=== PATIENT | female | born 1975 | race Caucasian/White ===

== ENCOUNTER 2018-12-23 21:29 | Observation (INO) | payer SELFPAY ==
[2018-12-23] MEDS ORDERED: Ondansetron 4 MG/2 ML SDV IVPUSH ONE (21:32)
[2018-12-23] MEDS ORDERED: Morphine 2 MG/ML Syringe IVPUSH ONE (21:32)
[2018-12-23] MEDS ORDERED: Sodium Chloride 0.9% 1,000 ML IV ONE (21:32)
--- NOTE | 2018-12-23 21:37 | EDM.PDOC ---
ED HPI GENERAL MEDICAL PROBLEM - General Chief Complaint: General Stated Complaint: PT SPOKE TO NURSE Time Seen by Provider: 12/23/18 21:36 Source of Information: Reports: Patient - History of Present Illness INITIAL COMMENTS - FREE TEXT/NARRATIVE: HISTORY AND PHYSICAL: History of present illness: [Patient presents from [place] for evaluation She has had epigastric pain over the last week 5 out of 10 radiating to the back unable to keep food down over the last week with some intermittent nausea No current fever nausea vomiting chills sweats no chest pain shortness breath headache dizziness palpitation no bowel or urine symptoms She has noted generalized weakness over the last week Patient initially reluctant to initiate treatment however has agreed to go forward with transfusion and further workup at this time Review of systems: As per history of present illness and below otherwise all systems reviewed and negative. Past medical history: As per history of present illness and as reviewed below otherwise noncontributory. Surgical history: As per history of present illness and as reviewed below otherwise noncontributory. Social history: No reported history of drug or alcohol abuse. Family history: As per history of present illness and as reviewed below otherwise noncontributory. Physical exam: HEENT: Atraumatic, normocephalic, pupils reactive, negative for conjunctival pallor or scleral icterus, mucous membranes moist, throat clear, neck supple, nontender, trachea midline. Lungs: Clear to auscultation, breath sounds equal bilaterally, chest nontender. Heart: S1S2, regular, negative for clicks, rubs, or JVD. Abdomen: Soft, nondistended, tender in the right upper quadrant as well as epigastrium on deep palpation no guarding or rebound Negative for masses or hepatosplenomegaly. Negative for costovertebral tenderness. Pelvis: Stable nontender. Genitourinary: Deferred. Rectal: No mass scarred lesion external a internal exam no mass scarred lesion guaiac is negative Extremities: Atraumatic, negative for cords or calf pain. Neurovascular unremarkable. Neuro: Awake, alert, oriented. Cranial nerves II through XII unremarkable. Cerebellum unremarkable. Motor and sensory unremarkable throughout. Exam nonfocal. Diagnostics: [CBC CMP UA type and screen CG troponin guaiac CT abdomen pelvis with contrast EKG ] Therapeutics: [Normal saline Zofran Morphine] Proton X 2 units packed red blood cells Impression: [ anemia -hemoglobin 4.9 Epigastric pain Guaiac negative Lower extremity edema Definitive disposition and diagnosis as appropriate pending reevaluation and review of above. Upper Abdomen Pain Score (Numeric/FACES): 10 - Related Data Allergies Allergy/AdvReac Type Severity Reaction Status Date / Time Penicillins Allergy Anaphylactic Verified 12/23/18 21:41 Shock Home Meds: Home Meds Calcium Carbonate [Calcium] 500 mg PO DAILY 12/23/18 [History] Levonorgestrel-Ethin Estradiol [Lutera-28 Tablet] 1 each PO DAILY 12/23/18 [ History] Lisinopril 20 mg PO DAILY 12/23/18 [History] MV,Ca,Min/Iron Fum/FA/Vit K [Essential Woman Tablet] 1 each PO DAILY 12/23/18 [ History] Magnesium 250 mg PO DAILY 12/23/18 [History] Ondansetron [Zofran] 4 mg PO Q8H PRN 12/23/18 [History] Pantoprazole [ProTONIX] 40 mg PO DAILY 12/23/18 [History] Potassium 99 mg PO DAILY 12/23/18 [History] rOPINIRole [Requip] 1 mg PO BEDTIME 12/23/18 [History] traMADol [Ultram] 50 mg PO Q8H 12/23/18 [History] ED ROS GENERAL - Review of Systems Review Of Systems: See Below ED EXAM, GENERAL - Physical Exam Exam: See Below Course - Vital Signs Last Recorded V/S: Last Vital Signs Temp 97.2 F 12/24/18 00:50 Pulse 63 12/24/18 00:50 Resp 18 12/24/18 00:50 BP 132/57 L 12/24/18 00:50 Pulse Ox 97 12/24/18 00:50 - Orders/Labs/Meds Orders: Active Orders 24 hr Category Date Time Status EKG Documentation Completion [RC] STAT Care 12/23/18 22:34 Active Guaiac [OCCULT BLOOD DIAGNOSTIC] [OP] Stat Lab 12/23/18 22:23 Ordered RED BLOOD CELLS LP [BBK] Stat Lab 12/23/18 21:52 Results TYPE AND SCREEN [BBK] Stat Lab 12/23/18 21:52 Results Labs: Laboratory Tests 12/23/18 12/23/18 12/23/18 Range/Units 21:50 21:50 21:52 WBC 17.85 H (4.0-11.0) K/uL RBC 2.71 L (4.30-5.90) M/uL Hgb 4.9 L (12.0-16.0) g/dL Hct 18.3 L (36.0-46.0) % MCV 67.5 L (80.0-98.0) fL MCH 18.1 L (27.0-32.0) pg MCHC 26.8 L (31.0-37.0) g/dL RDW Std Deviation 46.8 (28.0-62.0) fl RDW Coeff of Don 19 H (11.0-15.0) % Plt Count 659 H (150-400) K/uL MPV 9.00 (7.40-12.00) fL Add Manual Diff YES Neutrophils % (Manual) 68 (48.0-80.0) % Band Neutrophils % 15 % Lymphocytes % (Manual) 14 L (16.0-40.0) % Monocytes % (Manual) 1 (0.0-15.0) % Basophils % (Manual) 1 (0.0-1.5) % Metamyelocytes % 1 % Absolute Seg Neuts 12.1 H (1.4-5.7) Band Neutrophils # 2.7 Lymphocytes # (Manual) 2.5 H (0.6-2.4) Monocytes # (Manual) 0.2 (0.0-0.8) Basophils # (Manual) 0.2 H (0.0-0.1) Absolute Metamyelocyte 0.2 Sodium (136-145) mmol/L Potassium (3.5-5.1) mmol/L Chloride (98-107) mmol/L Carbon Dioxide (21.0-32.0) mmol/L BUN (7.0-18.0) mg/dL Creatinine (0.6-1.0) mg/dL Est Cr Clr Drug Dosing mL/min Estimated GFR (MDRD) ml/min Glucose (74-106) mg/dL Calcium (8.5-10.1) mg/dL Total Bilirubin (0.2-1.0) mg/dL AST (15-37) IU/L ALT (14-63) IU/L Alkaline Phosphatase (46-116) U/L Troponin I (0.000-0.056) ng/mL Total Protein (6.4-8.2) g/dL Albumin (3.4-5.0) g/dL Globulin (2.6-4.0) g/dL Albumin/Globulin Ratio (0.9-1.6) Lipase (73-393) U/L Urine Color YELLOW Urine Appearance CLEAR Urine pH 5.5 (5.0-8.0) Ur Specific [place] 1.010 (1.001-1.035) Urine Protein NEGATIVE (NEGATIVE) mg/dL Urine Glucose (UA) NEGATIVE (NEGATIVE) mg/dL Urine Ketones NEGATIVE (NEGATIVE) mg/dL Urine Occult Blood NEGATIVE (NEGATIVE) Urine Nitrite NEGATIVE (NEGATIVE) Urine Bilirubin NEGATIVE (NEGATIVE) Urine Urobilinogen 0.2 (<2.0) EU/dL Ur Leukocyte Esterase NEGATIVE (NEGATIVE) Urine HCG, Qual NEGATIVE (NEGATIVE) Blood Type Antibody Screen Crossmatch 12/23/18 12/23/18 Range/Units 21:52 21:52 WBC (4.0-11.0) K/uL RBC (4.30-5.90) M/uL Hgb (12.0-16.0) g/dL Hct (36.0-46.0) % MCV (80.0-98.0) fL MCH (27.0-32.0) pg MCHC (31.0-37.0) g/dL RDW Std Deviation (28.0-62.0) fl RDW Coeff of Don (11.0-15.0) % Plt Count (150-400) K/uL MPV (7.40-12.00) fL Add Manual Diff Neutrophils % (Manual) (48.0-80.0) % Band Neutrophils % % Lymphocytes % (Manual) (16.0-40.0) % Monocytes % (Manual) (0.0-15.0) % Basophils % (Manual) (0.0-1.5) % Metamyelocytes % % Absolute Seg Neuts (1.4-5.7) Band Neutrophils # Lymphocytes # (Manual) (0.6-2.4) Monocytes # (Manual) (0.0-0.8) Basophils # (Manual) (0.0-0.1) Absolute Metamyelocyte Sodium 139 (136-145) mmol/L Potassium 4.2 (3.5-5.1) mmol/L Chloride 104 (98-107) mmol/L Carbon Dioxide 23.0 (21.0-32.0) mmol/L BUN 13 (7.0-18.0) mg/dL Creatinine 1.0 (0.6-1.0) mg/dL Est Cr Clr Drug Dosing 66.51 mL/min Estimated GFR (MDRD) 60.0 ml/min Glucose 98 (74-106) mg/dL Calcium 8.1 L (8.5-10.1) mg/dL Total Bilirubin 0.3 (0.2-1.0) mg/dL AST 18 (15-37) IU/L ALT 14 (14-63) IU/L Alkaline Phosphatase 120 H (46-116) U/L Troponin I < 0.050 (0.000-0.056) ng/mL Total Protein 5.9 L (6.4-8.2) g/dL Albumin 2.2 L (3.4-5.0) g/dL Globulin 3.7 (2.6-4.0) g/dL Albumin/Globulin Ratio 0.6 L (0.9-1.6) Lipase 31 L (73-393) U/L Urine Color Urine Appearance Urine pH (5.0-8.0) Ur Specific [place] (1.001-1.035) Urine Protein (NEGATIVE) mg/dL Urine Glucose (UA) (NEGATIVE) mg/dL Urine Ketones (NEGATIVE) mg/dL Urine Occult Blood (NEGATIVE) Urine Nitrite (NEGATIVE) Urine Bilirubin (NEGATIVE) Urine Urobilinogen (<2.0) EU/dL Ur Leukocyte Esterase (NEGATIVE) Urine HCG, Qual (NEGATIVE) Blood Type O POSITIVE Antibody Screen NEGATIVE Crossmatch See Detail Meds: Medications Discontinued Medications Generic Name Dose Route Start Last Admin Trade Name Freq PRN Reason Stop Dose Admin Furosemide 20 mg 12/24/18 01:15 12/24/18 01:23 Lasix IVPUSH 12/24/18 01:16 20 mg NOW ONE Administration Sodium Chloride 1,000 mls @ 999 mls/hr 12/23/18 21:32 12/23/18 22:00 Normal Saline IV 12/23/18 22:32 999 mls/hr STAT ONE Administration Sodium Chloride Confirm 12/23/18 21:55 12/23/18 22:00 Normal Saline Administered 05/16/19 21:56 20 mls/hr Dose Administration 20 mls @ as directed .ROUTE .STK-MED ONE Iopamidol 100 ml 12/23/18 22:49 12/23/18 22:49 Isovue Multipack-370 (76%) IVPUSH 12/23/18 22:50 100 ml ONETIME STA Administration Morphine Sulfate 2 mg 12/23/18 21:32 12/23/18 22:00 Morphine IVPUSH 12/23/18 21:33 2 mg ONETIME ONE Administration Morphine Sulfate 4 mg 12/23/18 23:50 12/24/18 00:00 Morphine IVPUSH 12/23/18 23:51 4 mg ONETIME ONE Administration Ondansetron HCl 8 mg 12/23/18 21:32 12/23/18 22:02 Zofran IVPUSH 12/23/18 21:33 8 mg ONETIME ONE Administration Pantoprazole Sodium 80 mg 12/23/18 21:42 12/23/18 22:01 Protonix Iv IVPUSH 12/23/18 21:43 80 mg .BOLUS ONE Administration Departure - Departure Time of Disposition: 01:25 Disposition: Refer to Observation Condition: Poor Clinical Impression: Anemia, Epigastric pain - Discharge Information Referrals: PCP,None [Primary Care Provider] - Forms: ED Department Discharge - My Orders Last 24 Hours: My Active Orders 12/23/18 21:52 RED BLOOD CELLS LP [BBK] Stat TYPE AND SCREEN [BBK] Stat 12/23/18 22:23 Guaiac [OCCULT BLOOD DIAGNOSTIC] [OP] Stat 12/23/18 22:34 EKG Documentation Completion [RC] STAT - Assessment/Plan Last 24 Hours: My Active Orders 12/23/18 21:52 RED BLOOD CELLS LP [BBK] Stat TYPE AND SCREEN [BBK] Stat 12/23/18 22:23 Guaiac [OCCULT BLOOD DIAGNOSTIC] [OP] Stat 12/23/18 22:34 EKG Documentation Completion [RC] STAT
[2018-12-23] MEDS ORDERED: Pantoprazole 40 MG Vial IVPUSH ONE (21:42)
[2018-12-23] MEDS ORDERED: Sodium Chloride 0.9% 20 ML ONE (21:55)
[2018-12-23 22:27] LABS: CHLORIDE,CL 104 mmol/L (98-107); SODIUM,NA 139 mmol/L (136-145)
[2018-12-23] MEDS ORDERED: Iopamidol 755 MG/ML 500 ML Multipack Bottle IVPUSH STA (22:49)
--- NOTE | 2018-12-23 23:08 | CT ---
INDICATION: Abdominal pain. TECHNIQUE: CT abdomen and pelvis acquired with 100 cc Isovue 370 IV contrast. COMPARISON: None. FINDINGS: Lower chest: Unremarkable. Liver: Unremarkable. Normal in size and attenuation. No masses. Gallbladder and bile ducts: Gallbladder is moderately distended. No stones or inflammation. No biliary dilatation. Pancreas: Unremarkable. No mass or inflammation. Spleen: Unremarkable. Normal in size. No masses. Adrenal glands: Unremarkable. No nodules. Kidneys: Unremarkable. No masses, stones, or hydronephrosis. GI tract: Unremarkable. Normal in caliber. No sign of mass or inflammation. There is hyperdense material within the mildly distended appendix. No sign of appendiceal inflammation. Vasculature: Unremarkable. Mesenteric arteries are patent. Lymph nodes: No lymphadenopathy. Omentum/Peritoneum/Abdominal Wall: Unremarkable. No sign of mass or infiltration. No free air or significant free fluid. Pelvis: Unremarkable. Bones: Unremarkable for age. IMPRESSION: 1. Gallbladder is moderately distended without evidence of stone or inflammation. 2. Hyperdense material is present within a mildly distended appendix. However, there is no sign of appendiceal inflammation. 3. No other acute or specific finding to explain abdominal pain. Please note that all CT scans at this facility use dose modulation, iterative reconstruction, and/or weight-based dosing when appropriate to reduce radiation dose to as low as reasonably achievable. Dictated by George Rojas MD @ Dec 23 2018 10:58PM Signed by Dr. George Rojas @ Dec 23 2018 11:06PM
[2018-12-23] MEDS ORDERED: Morphine 4 MG/ML Syringe IVPUSH ONE (23:50)
--- NOTE | 2018-12-24 00:42 | US ---
INDICATION: Epigastric pain TECHNIQUE: Ultrasound abdomen limited. Sonographic images of the right upper quadrant were obtained using sebastian-scale and color Doppler images. COMPARISON: None FINDINGS: Liver: The liver parenchyma is normal in echotexture. Gallbladder: [id number] nonspecific distention of the gallbladder is present measuring 4.5 cm in diameter. No gallstones or significant sludge is identified. The gallbladder wall is normal in appearance. No pericholecystic fluid is present. No sonographic [place] sign is present. Common bile duct: 4 mm. No intrahepatic biliary ductal dilatation seen. Pancreas: The visualized portions of the pancreatic head and body are normal in appearance. Right Kidney: 9.8 cm. No hydronephrosis or ureterectasis is seen. Vascular: Proximal abdominal aorta and IVC are normal in caliber. The visualized portal vein is patent with normal anterograde flow. IMPRESSION: 1. [id number] nonspecific distention of the gallbladder is present measuring 4.5 cm in diameter. Dictated by Rodrigo Pierre MD @ 12/24/2018 12:41:04 AM Dictated by: Rodrigo Pierre MD @ 12/24/2018 00:41:06 (Electronically Signed)
[2018-12-24] MEDS ORDERED: Furosemide 40 MG/4 ML VIAL IVPUSH ONE (01:15)
[2018-12-24] MEDS: Sodium Chloride 0.9% 1,000 ML IV SCH ×3 (04:43→22:32)
--- NOTE | 2018-12-24 07:02 | PCM.HP ---
H&P History of Present Illness - General Date of Service: 12/24/18 Admit Problem/Dx: Admission Diagnosis/Problem Admission Diagnosis/Problem Anemia Source of Information: Patient History Limitations: Reports: No Limitations - History of Present Illness Initial Comments - Free Text/Narative: The patient is a 43-year-old lady who had presented to the emergency department yesterday with a complaint of severe epigastric pain which radiates around both sides of her lower rib cage. The pain has been described as sharp and stabbing. The patient also had severe nausea and vomiting and had been unable to keep food down. Patient's overall health problems started approximately one week ago. The patient also admits to heavy NSAID use with up to 12 ibuprofen a day for chronic pain relief due to her migraine headache history. The patient had not noticed any hematochezia, hematemesis or melena. The patient reports that she did have some dizziness or lightheadedness. And she has had no specific aggravating or relieving factors for the pain. The patient also relates a history of heavy menstrual cycles. Onset of Symptoms: Reports: Gradual Duration of Symptoms: Reports: Week(s): Location: Reports: Abdomen Quality: Reports: Ache, Stabbing, Throbbing Severity: Severe Improves with: Reports: None Worsens with: Reports: None Context: Reports: Other (Heavy NSAID use) Associated Symptoms: Reports: Headaches, Loss of Appetite, Nausea/Vomiting Upper Abdomen Pain Score (Numeric/FACES): 7 - Related Data Allergies/Adverse Reactions: Allergies Allergy/AdvReac Type Severity Reaction Status Date / Time Penicillins Allergy Anaphylactic Verified 12/23/18 21:41 Shock Home Medications: Home Meds Calcium Carbonate [Calcium] 500 mg PO DAILY 12/23/18 [History] Levonorgestrel-Ethin Estradiol [Lutera-28 Tablet] 1 each PO DAILY 12/23/18 [ History] Lisinopril 20 mg PO DAILY 12/23/18 [History] MV,Ca,Min/Iron Fum/FA/Vit K [Essential Woman Tablet] 1 each PO DAILY 12/23/18 [ History] Magnesium 250 mg PO DAILY 12/23/18 [History] Ondansetron [Zofran] 4 mg PO Q8H PRN 12/23/18 [History] Pantoprazole [ProTONIX] 40 mg PO DAILY 12/23/18 [History] Potassium 99 mg PO DAILY 12/23/18 [History] rOPINIRole [Requip] 1 mg PO BEDTIME 12/23/18 [History] traMADol [Ultram] 50 mg PO Q8H 12/23/18 [History] Past Medical History - Past Health History Medical/Surgical History: Denies Medical/Surgical History Cardiovascular History: Reports: Hypertension Respiratory History: Reports: Asthma Gastrointestinal History: Reports: None Genitourinary History: Reports: None [employer]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: Musculoskeletal History: Reports: None Neurological History: Reports: Concussion, Migraines Psychiatric History: Reports: None Endocrine/Metabolic History: Reports: None Hematologic History: Reports: None Immunologic History: Reports: None Oncologic (Cancer) History: Reports: None Dermatologic History: Reports: None - Infectious Disease History Infectious Disease History: Reports: None - Past Surgical History Head Surgeries/Procedures: Reports: None HEENT Surgical History: Reports: Oral Surgery Social & Family History - Family History Family Medical History: Noncontributory - Tobacco Use Smoking Status *Q: Current Every Day Smoker Years of Tobacco use: 30 Packs/Tins Daily: 0.5 Used Tobacco, but Quit: No Second Hand Smoke Exposure: No - Caffeine Use Caffeine Use: Reports: Coffee - Recreational Drug Use Recreational Drug Use: No H&P Review of Systems - Review of Systems: Review Of Systems: See Below General: Reports: Weakness HEENT: Reports: No Symptoms Pulmonary: Reports: No Symptoms Cardiovascular: Reports: No Symptoms Gastrointestinal: Reports: Abdominal Pain, Decreased Appetite, Nausea, Vomiting Genitourinary: Reports: No Symptoms Musculoskeletal: Reports: No Symptoms Skin: Reports: No Symptoms Psychiatric: Reports: No Symptoms Neurological: Reports: No Symptoms Hematologic/Lymphatic: Reports: No Symptoms Immunologic: Reports: No Symptoms Exam - Exam Exam: See Below - Vital Signs Vital Signs: Last Vital Signs Temp 36.3 C 12/24/18 05:10 Pulse 62 12/24/18 05:10 Resp 16 12/24/18 05:10 BP 163/73 H 12/24/18 05:10 Pulse Ox 98 12/24/18 05:10 Weight: 72.802 kg - Exam Quality Assessment: No: Supplemental Oxygen General: Alert (Appears older), Oriented, Cooperative HEENT: Conjunctiva Clear ([place]), EACs Clear, EOMI, Mucosa Moist & [place], PERRLA Neck: Supple, Trachea Midline Lungs: Clear to Auscultation, Normal Respiratory Effort Cardiovascular: Regular Rate, Regular Rhythm GI/Abdominal Exam: Normal Bowel Sounds, Soft, No Distention, Tender (Epigastrium ). No: Guarding, Rigid, Rebound Back Exam: Normal Inspection, Full Range of Motion Extremities: Normal Inspection, Normal Range of Motion, No Pedal Edema Skin: Warm, Dry, Intact Neurological: Cranial Nerves Intact Neuro Extensive - Mental Status: Alert, Oriented x3, Normal Mood/Affect Psychiatric: Alert, Normal Affect, Normal Mood - Patient Data Lab Results Last 24 hrs: Laboratory Results - last 24 hr 12/23/18 12/23/18 12/23/18 Range/Units 21:50 21:50 21:52 WBC 17.85 H (4.0-11.0) K/uL RBC 2.71 L (4.30-5.90) M/uL Hgb 4.9 L (12.0-16.0) g/dL Hct 18.3 L (36.0-46.0) % MCV 67.5 L (80.0-98.0) fL MCH 18.1 L (27.0-32.0) pg MCHC 26.8 L (31.0-37.0) g/dL RDW Std Deviation 46.8 (28.0-62.0) fl RDW Coeff of Don 19 H (11.0-15.0) % Plt Count 659 H (150-400) K/uL MPV 9.00 (7.40-12.00) fL Add Manual Diff YES Neutrophils % (Manual) 68 (48.0-80.0) % Band Neutrophils % 15 % Lymphocytes % (Manual) 14 L (16.0-40.0) % Monocytes % (Manual) 1 (0.0-15.0) % Basophils % (Manual) 1 (0.0-1.5) % Metamyelocytes % 1 % Absolute Seg Neuts 12.1 H (1.4-5.7) Band Neutrophils # 2.7 Lymphocytes # (Manual) 2.5 H (0.6-2.4) Monocytes # (Manual) 0.2 (0.0-0.8) Basophils # (Manual) 0.2 H (0.0-0.1) Absolute Metamyelocyte 0.2 Sodium (136-145) mmol/L Potassium (3.5-5.1) mmol/L Chloride (98-107) mmol/L Carbon Dioxide (21.0-32.0) mmol/L BUN (7.0-18.0) mg/dL Creatinine (0.6-1.0) mg/dL Est Cr Clr Drug Dosing mL/min Estimated GFR (MDRD) ml/min Glucose (74-106) mg/dL Calcium (8.5-10.1) mg/dL Total Bilirubin (0.2-1.0) mg/dL AST (15-37) IU/L ALT (14-63) IU/L Alkaline Phosphatase (46-116) U/L Troponin I (0.000-0.056) ng/mL Total Protein (6.4-8.2) g/dL Albumin (3.4-5.0) g/dL Globulin (2.6-4.0) g/dL Albumin/Globulin Ratio (0.9-1.6) Lipase (73-393) U/L Urine Color YELLOW Urine Appearance CLEAR Urine pH 5.5 (5.0-8.0) Ur Specific [place] 1.010 (1.001-1.035) Urine Protein NEGATIVE (NEGATIVE) mg/dL Urine Glucose (UA) NEGATIVE (NEGATIVE) mg/dL Urine Ketones NEGATIVE (NEGATIVE) mg/dL Urine Occult Blood NEGATIVE (NEGATIVE) Urine Nitrite NEGATIVE (NEGATIVE) Urine Bilirubin NEGATIVE (NEGATIVE) Urine Urobilinogen 0.2 (<2.0) EU/dL Ur Leukocyte Esterase NEGATIVE (NEGATIVE) Urine HCG, Qual NEGATIVE (NEGATIVE) Blood Type Antibody Screen Crossmatch 12/23/18 12/23/18 Range/Units 21:52 21:52 WBC (4.0-11.0) K/uL RBC (4.30-5.90) M/uL Hgb (12.0-16.0) g/dL Hct (36.0-46.0) % MCV (80.0-98.0) fL MCH (27.0-32.0) pg MCHC (31.0-37.0) g/dL RDW Std Deviation (28.0-62.0) fl RDW Coeff of Don (11.0-15.0) % Plt Count (150-400) K/uL MPV (7.40-12.00) fL Add Manual Diff Neutrophils % (Manual) (48.0-80.0) % Band Neutrophils % % Lymphocytes % (Manual) (16.0-40.0) % Monocytes % (Manual) (0.0-15.0) % Basophils % (Manual) (0.0-1.5) % Metamyelocytes % % Absolute Seg Neuts (1.4-5.7) Band Neutrophils # Lymphocytes # (Manual) (0.6-2.4) Monocytes # (Manual) (0.0-0.8) Basophils # (Manual) (0.0-0.1) Absolute Metamyelocyte Sodium 139 (136-145) mmol/L Potassium 4.2 (3.5-5.1) mmol/L Chloride 104 (98-107) mmol/L Carbon Dioxide 23.0 (21.0-32.0) mmol/L BUN 13 (7.0-18.0) mg/dL Creatinine 1.0 (0.6-1.0) mg/dL Est Cr Clr Drug Dosing 66.51 mL/min Estimated GFR (MDRD) 60.0 ml/min Glucose 98 (74-106) mg/dL Calcium 8.1 L (8.5-10.1) mg/dL Total Bilirubin 0.3 (0.2-1.0) mg/dL AST 18 (15-37) IU/L ALT 14 (14-63) IU/L Alkaline Phosphatase 120 H (46-116) U/L Troponin I < 0.050 (0.000-0.056) ng/mL Total Protein 5.9 L (6.4-8.2) g/dL Albumin 2.2 L (3.4-5.0) g/dL Globulin 3.7 (2.6-4.0) g/dL Albumin/Globulin Ratio 0.6 L (0.9-1.6) Lipase 31 L (73-393) U/L Urine Color Urine Appearance Urine pH (5.0-8.0) Ur Specific [place] (1.001-1.035) Urine Protein (NEGATIVE) mg/dL Urine Glucose (UA) (NEGATIVE) mg/dL Urine Ketones (NEGATIVE) mg/dL Urine Occult Blood (NEGATIVE) Urine Nitrite (NEGATIVE) Urine Bilirubin (NEGATIVE) Urine Urobilinogen (<2.0) EU/dL Ur Leukocyte Esterase (NEGATIVE) Urine HCG, Qual (NEGATIVE) Blood Type O POSITIVE Antibody Screen NEGATIVE Crossmatch See Detail Result Diagrams: 12/24/18 07:29 12/23/18 21:52 - Problem List (1) Epigastric pain SNOMED Code(s): 62283555 ICD Code: R10.13 - EPIGASTRIC PAIN Status: Acute Priority: High Current Visit: Yes (2) Anemia SNOMED Code(s): 052600258 ICD Code: D64.9 - ANEMIA, UNSPECIFIED Status: Chronic Priority: High Current Visit: Yes Qualifiers: Anemia type: iron deficiency Iron deficiency anemia type: chronic blood loss Qualified Code(s): D50.0 - Iron deficiency anemia secondary to blood loss (chronic) (3) Chronic migraine SNOMED Code(s): 063924908 ICD Code: G43.709 - CHRONIC MIGRAINE W/O AURA, NOT INTRACTABLE, W/O STAT MIGR Status: Chronic Priority: High Current Visit: Yes (4) Hypertension SNOMED Code(s): 02923503 ICD Code: I10 - ESSENTIAL (PRIMARY) HYPERTENSION Status: Chronic Priority : High Current Visit: Yes Qualifiers: Hypertension type: essential hypertension Qualified Code(s): I10 - Essential (primary) hypertension Problem List Initiated/Reviewed/Updated: Yes Orders Last 24hrs: Active Orders 24 hr Category Date Time Status Patient Status [ADT] Routine ADT 12/24/18 01:53 Active Verify Patient Consent Obtain [RC] ASDIRECTED Care 12/24/18 01:59 Active Guaiac [OCCULT BLOOD DIAGNOSTIC] [OP] Stat Lab 12/23/18 22:23 Ordered HEMOGLOBIN/HEMATOCRIT,HH [HEME] Routine Lab 12/24/18 05:10 Ordered RED BLOOD CELLS LP [BBK] Stat Lab 12/23/18 21:52 Results TYPE AND SCREEN [BBK] Stat Lab 12/23/18 21:52 Results Morphine Med 12/24/18 02:30 Active 2 mg IVPUSH Q4H PRN Sodium Chloride 0.9% [Normal Saline] 1,000 ml Med 12/24/18 02:45 Active IV ASDIRECTED Transfuse Red Blood Cells [COMM] Stat Oth 12/24/18 01:59 Ordered Medication Orders Sodium Chloride (Normal Saline) 1,000 mls @ 125 mls/hr IV ASDIRECTED [facility] Last Admin: 12/24/18 04:43 Dose: 125 mls/hr Morphine Sulfate (Morphine) 2 mg IVPUSH Q4H PRN PRN Reason: Pain Assessment/Plan Comment:: The patient is a 43-year-old lady who had presented to the emergency department with severe epigastric pain. It was noted that her hemoglobin is 4.9 g/dL. The patient had been transfused with 2 units of packed red blood cells. Her hemoglobin had responded appropriately. Subjectively the patient feels better today. I've ordered a consult with surgeon as the patient does have a history of heavy NSAID use and this likely can have contributed to ulceration with subsequent bleeding. The patient for now is nothing by mouth. I've ordered repeat laboratory testings for the morning. She is on IV and normal saline at 125 mL per hour. Because of the possibility of hemorrhage the patient is on SCDs for DVT prophylaxis. The patient should be appropriate for discharge in 1- 2 days. She also be kept on her home medications for her hypertension and these will be be adjusted as necessary.
[2018-12-24] MEDS ORDERED: Ondansetron 4 MG Tab PO PRN (07:08)
[2018-12-24] MEDS ORDERED: Morphine 2 MG/ML Syringe IVPUSH PRN (07:09)
[2018-12-24] MEDS ORDERED: Sodium Chloride 0.9% 1,000 ML IV SCH (07:15)
[2018-12-24] MEDS: traMADol 50 MG Tab PO SCH ×3 (07:26→22:30)
[2018-12-24] MEDS: Pantoprazole 40 MG Tab.CR PO SCH (08:36)
[2018-12-24] MEDS: Lisinopril 10 MG Tab PO SCH (08:36)
[2018-12-24] MEDS ORDERED: POTASSIUM 99 MG PO SCH (09:00)
[2018-12-24] MEDS ORDERED: LUTERA PO SCH (09:00)
[2018-12-24] MEDS ORDERED: MAGNESIUM 250 MG PO SCH (09:00)
[2018-12-24] MEDS: Morphine 2 MG/ML Syringe IVPUSH PRN ×5 (09:57→23:54)
[2018-12-24] MEDS ORDERED: Levofloxacin/Dextrose 5%-Water 500 MG in Premix Bag 1 BAG IV SCH (13:00)
[2018-12-24 14:23] LABS: CHLORIDE,CL 107 mmol/L (98-107); SODIUM,NA 142 mmol/L (136-145)
--- NOTE | 2018-12-24 16:14 | PCM.CONS ---
H&P History of Present Illness - General Date of Service: 12/24/18 Admit Problem/Dx: Admission Diagnosis/Problem Admission Diagnosis/Problem Anemia Source of Information: Patient History Limitations: Reports: No Limitations - History of Present Illness Initial Comments - Free Text/Narative: Patient is a 43-year-old female who presented to the ER yesterday with 2 days of upper abdominal pain. It was made worse with eating solid food. She denies dysphasia. She denies heartburn. She was able to eat liquids with no issues. It radiated around her sides bilaterally. She denied any radiation to her lower abdomen. She denied any changes in her bowel habits. She is still passing gas and her last bowel movement was yesterday and it appeared normal. She does have very heavy episodes of menstruation. She had stable vital signs on presentation. A physical exam was performed by the ER physician. Per report she had a negative FOBT. Her hemoglobin on admission was 4.9 and her white blood cell count was 17,000. A CT scan of the abdomen pelvis showed a mild to moderately distended gallbladder as well as fecaliths within an otherwise normal -appearing appendix. She had a follow-up ultrasound that again showed a mild to moderately distended gallbladder with no evidence of cholecystitis or cholelithiasis. She was kept nothing by mouth given IV fluids and watched overnight. She was given 2 units of blood which brought her hemoglobin up to 7.5. This afternoon she developed a low-grade fever. She complains of being hungry but continues to have upper abdominal pain. I was asked to see the patient. Upon learning that I was a general surgeon the patient became very anxious and stated that she wanted to leave the hospital and wanted no procedures done at all. I was able to visit with her, calm her down, and obtain the above history. Upper Abdomen Pain Score (Numeric/FACES): 7 - Related Data Allergies/Adverse Reactions: Allergies Allergy/AdvReac Type Severity Reaction Status Date / Time Penicillins Allergy Anaphylactic Verified 12/23/18 21:41 Shock Home Medications: Home Meds Calcium Carbonate [Calcium] 500 mg PO DAILY 12/23/18 [History] Levonorgestrel-Ethin Estradiol [Lutera-28 Tablet] 1 each PO DAILY 12/23/18 [ History] Lisinopril 20 mg PO DAILY 12/23/18 [History] MV,Ca,Min/Iron Fum/FA/Vit K [Essential Woman Tablet] 1 each PO DAILY 12/23/18 [ History] Magnesium 250 mg PO DAILY 12/23/18 [History] Ondansetron [Zofran] 4 mg PO Q8H PRN 12/23/18 [History] Pantoprazole [ProTONIX] 40 mg PO DAILY 12/23/18 [History] Potassium 99 mg PO DAILY 12/23/18 [History] rOPINIRole [Requip] 1 mg PO BEDTIME 12/23/18 [History] traMADol [Ultram] 50 mg PO Q8H 12/23/18 [History] Past Medical History - Past Health History Medical/Surgical History: Denies Medical/Surgical History Cardiovascular History: Reports: Hypertension Respiratory History: Reports: Asthma Gastrointestinal History: Reports: None Genitourinary History: Reports: None MEDICAL RECORDS COORDINATOR History: Reports: Musculoskeletal History: Reports: None Neurological History: Reports: Concussion, Migraines Psychiatric History: Reports: None Endocrine/Metabolic History: Reports: None Hematologic History: Reports: None Immunologic History: Reports: None Oncologic (Cancer) History: Reports: None Dermatologic History: Reports: None - Infectious Disease History Infectious Disease History: Reports: None - Past Surgical History Head Surgeries/Procedures: Reports: None HEENT Surgical History: Reports: Oral Surgery Social & Family History - Family History Family Medical History: Noncontributory - Tobacco Use Smoking Status *Q: Current Every Day Smoker Years of Tobacco use: 30 Packs/Tins Daily: 0.5 Used Tobacco, but Quit: No Second Hand Smoke Exposure: No - Caffeine Use Caffeine Use: Reports: Coffee - Recreational Drug Use Recreational Drug Use: No H&P Review of Systems - Review of Systems: Review Of Systems: See Below Exam - Exam Exam: See Below - Vital Signs Vital Signs: Last Vital Signs Temp 38.1 C 12/24/18 11:09 Pulse 64 12/24/18 11:09 Resp 18 12/24/18 11:09 BP 162/75 H 12/24/18 11:09 Pulse Ox 99 12/24/18 11:09 Weight: 72.802 kg - Exam General: Alert, Oriented, Mild Distress HEENT: Conjunctiva Clear, Mucosa Moist & Boring, Nares Patent, Other (Poor dentition) Neck: Supple, Trachea Midline Lungs: Clear to Auscultation, Normal Respiratory Effort Cardiovascular: Regular Rate, Regular Rhythm GI/Abdominal Exam: Soft, Non-Tender, No Distention, No Mass Rectal (Female) Exam: Deferred Back Exam: Normal Inspection, Full Range of Motion - Patient Data Lab Results Last 24 hrs: Laboratory Results - last 24 hr 12/23/18 12/23/18 12/23/18 Range/Units 21:50 21:50 21:52 WBC 17.85 H (4.0-11.0) K/uL RBC 2.71 L (4.30-5.90) M/uL Hgb 4.9 L (12.0-16.0) g/dL Hct 18.3 L (36.0-46.0) % MCV 67.5 L (80.0-98.0) fL MCH 18.1 L (27.0-32.0) pg MCHC 26.8 L (31.0-37.0) g/dL RDW Std Deviation 46.8 (28.0-62.0) fl RDW Coeff of Don 19 H (11.0-15.0) % Plt Count 659 H (150-400) K/uL MPV 9.00 (7.40-12.00) fL Neut % (Auto) (48.0-80.0) % Lymph % (Auto) (16.0-40.0) % Borden % (Auto) (0.0-15.0) % Eos % (Auto) (0.0-7.0) % Baso % (Auto) (0.0-1.5) % Neut # (Auto) (1.4-5.7) K/uL Lymph # (Auto) (0.6-2.4) K/uL Borden # (Auto) (0.0-0.8) K/uL Eos # (Auto) (0.0-0.7) K/uL Baso # (Auto) (0.0-0.1) K/uL Add Manual Diff YES Neutrophils % (Manual) 68 (48.0-80.0) % Band Neutrophils % 15 % Lymphocytes % (Manual) 14 L (16.0-40.0) % Monocytes % (Manual) 1 (0.0-15.0) % Basophils % (Manual) 1 (0.0-1.5) % Metamyelocytes % 1 % Nucleated RBC % /100WBC Absolute Seg Neuts 12.1 H (1.4-5.7) Band Neutrophils # 2.7 Lymphocytes # (Manual) 2.5 H (0.6-2.4) Monocytes # (Manual) 0.2 (0.0-0.8) Basophils # (Manual) 0.2 H (0.0-0.1) Absolute Metamyelocyte 0.2 Nucleated RBCs # K/uL Sodium (136-145) mmol/L Potassium (3.5-5.1) mmol/L Chloride (98-107) mmol/L Carbon Dioxide (21.0-32.0) mmol/L BUN (7.0-18.0) mg/dL Creatinine (0.6-1.0) mg/dL Est Cr Clr Drug Dosing mL/min Estimated GFR (MDRD) ml/min Glucose (74-106) mg/dL Calcium (8.5-10.1) mg/dL Total Bilirubin (0.2-1.0) mg/dL AST (15-37) IU/L ALT (14-63) IU/L Alkaline Phosphatase (46-116) U/L Troponin I (0.000-0.056) ng/mL Total Protein (6.4-8.2) g/dL Albumin (3.4-5.0) g/dL Globulin (2.6-4.0) g/dL Albumin/Globulin Ratio (0.9-1.6) Lipase (73-393) U/L Urine Color YELLOW Urine Appearance CLEAR Urine pH 5.5 (5.0-8.0) Ur Specific Pitcher 1.010 (1.001-1.035) Urine Protein NEGATIVE (NEGATIVE) mg/dL Urine Glucose (UA) NEGATIVE (NEGATIVE) mg/dL Urine Ketones NEGATIVE (NEGATIVE) mg/dL Urine Occult Blood NEGATIVE (NEGATIVE) Urine Nitrite NEGATIVE (NEGATIVE) Urine Bilirubin NEGATIVE (NEGATIVE) Urine Urobilinogen 0.2 (<2.0) EU/dL Ur Leukocyte Esterase NEGATIVE (NEGATIVE) Urine HCG, Qual NEGATIVE (NEGATIVE) H. pylori IgG Antibody (NEG) Blood Type Antibody Screen Crossmatch 12/23/18 12/23/18 12/24/18 Range/Units 21:52 21:52 07:29 WBC (4.0-11.0) K/uL RBC (4.30-5.90) M/uL Hgb 7.5 L (12.0-16.0) g/dL Hct 25.1 L (36.0-46.0) % MCV (80.0-98.0) fL MCH (27.0-32.0) pg MCHC (31.0-37.0) g/dL RDW Std Deviation (28.0-62.0) fl RDW Coeff of Don (11.0-15.0) % Plt Count (150-400) K/uL MPV (7.40-12.00) fL Neut % (Auto) (48.0-80.0) % Lymph % (Auto) (16.0-40.0) % Borden % (Auto) (0.0-15.0) % Eos % (Auto) (0.0-7.0) % Baso % (Auto) (0.0-1.5) % Neut # (Auto) (1.4-5.7) K/uL Lymph # (Auto) (0.6-2.4) K/uL Borden # (Auto) (0.0-0.8) K/uL Eos # (Auto) (0.0-0.7) K/uL Baso # (Auto) (0.0-0.1) K/uL Add Manual Diff Neutrophils % (Manual) (48.0-80.0) % Band Neutrophils % % Lymphocytes % (Manual) (16.0-40.0) % Monocytes % (Manual) (0.0-15.0) % Basophils % (Manual) (0.0-1.5) % Metamyelocytes % % Nucleated RBC % /100WBC Absolute Seg Neuts (1.4-5.7) Band Neutrophils # Lymphocytes # (Manual) (0.6-2.4) Monocytes # (Manual) (0.0-0.8) Basophils # (Manual) (0.0-0.1) Absolute Metamyelocyte Nucleated RBCs # K/uL Sodium 139 (136-145) mmol/L Potassium 4.2 (3.5-5.1) mmol/L Chloride 104 (98-107) mmol/L Carbon Dioxide 23.0 (21.0-32.0) mmol/L BUN 13 (7.0-18.0) mg/dL Creatinine 1.0 (0.6-1.0) mg/dL Est Cr Clr Drug Dosing 66.51 mL/min Estimated GFR (MDRD) 60.0 ml/min Glucose 98 (74-106) mg/dL Calcium 8.1 L (8.5-10.1) mg/dL Total Bilirubin 0.3 (0.2-1.0) mg/dL AST 18 (15-37) IU/L ALT 14 (14-63) IU/L Alkaline Phosphatase 120 H (46-116) U/L Troponin I < 0.050 (0.000-0.056) ng/mL Total Protein 5.9 L (6.4-8.2) g/dL Albumin 2.2 L (3.4-5.0) g/dL Globulin 3.7 (2.6-4.0) g/dL Albumin/Globulin Ratio 0.6 L (0.9-1.6) Lipase 31 L (73-393) U/L Urine Color Urine Appearance Urine pH (5.0-8.0) Ur Specific Pitcher (1.001-1.035) Urine Protein (NEGATIVE) mg/dL Urine Glucose (UA) (NEGATIVE) mg/dL Urine Ketones (NEGATIVE) mg/dL Urine Occult Blood (NEGATIVE) Urine Nitrite (NEGATIVE) Urine Bilirubin (NEGATIVE) Urine Urobilinogen (<2.0) EU/dL Ur Leukocyte Esterase (NEGATIVE) Urine HCG, Qual (NEGATIVE) H. pylori IgG Antibody (NEG) Blood Type O POSITIVE Antibody Screen NEGATIVE Crossmatch See Detail 12/24/18 12/24/18 12/24/18 Range/Units 12:44 13:35 13:35 WBC 14.07 H (4.0-11.0) K/uL RBC 3.62 L (4.30-5.90) M/uL Hgb 7.9 L (12.0-16.0) g/dL Hct 26.3 L (36.0-46.0) % MCV 72.7 L (80.0-98.0) fL MCH 21.8 L (27.0-32.0) pg MCHC 30.0 L (31.0-37.0) g/dL RDW Std Deviation 53.3 (28.0-62.0) fl RDW Coeff of Don 20 H (11.0-15.0) % Plt Count 522 H (150-400) K/uL MPV 9.30 (7.40-12.00) fL Neut % (Auto) 80.2 H (48.0-80.0) % Lymph % (Auto) 11.0 L (16.0-40.0) % Borden % (Auto) 7.8 (0.0-15.0) % Eos % (Auto) 0.8 (0.0-7.0) % Baso % (Auto) 0.2 (0.0-1.5) % Neut # (Auto) 11.3 H (1.4-5.7) K/uL Lymph # (Auto) 1.6 (0.6-2.4) K/uL Borden # (Auto) 1.1 H (0.0-0.8) K/uL Eos # (Auto) 0.1 (0.0-0.7) K/uL Baso # (Auto) 0.0 (0.0-0.1) K/uL Add Manual Diff Neutrophils % (Manual) (48.0-80.0) % Band Neutrophils % % Lymphocytes % (Manual) (16.0-40.0) % Monocytes % (Manual) (0.0-15.0) % Basophils % (Manual) (0.0-1.5) % Metamyelocytes % % Nucleated RBC % 0.4 /100WBC Absolute Seg Neuts (1.4-5.7) Band Neutrophils # Lymphocytes # (Manual) (0.6-2.4) Monocytes # (Manual) (0.0-0.8) Basophils # (Manual) (0.0-0.1) Absolute Metamyelocyte Nucleated RBCs # 0 K/uL Sodium 142 (136-145) mmol/L Potassium 4.2 (3.5-5.1) mmol/L Chloride 107 (98-107) mmol/L Carbon Dioxide 20.9 L (21.0-32.0) mmol/L BUN 10 (7.0-18.0) mg/dL Creatinine 0.9 (0.6-1.0) mg/dL Est Cr Clr Drug Dosing 73.90 mL/min Estimated GFR (MDRD) > 60.0 ml/min Glucose 80 (74-106) mg/dL Calcium 7.7 L (8.5-10.1) mg/dL Total Bilirubin 0.4 (0.2-1.0) mg/dL AST 19 (15-37) IU/L ALT 14 (14-63) IU/L Alkaline Phosphatase 117 H (46-116) U/L Troponin I (0.000-0.056) ng/mL Total Protein 5.2 L (6.4-8.2) g/dL Albumin 2.2 L (3.4-5.0) g/dL Globulin 3.0 (2.6-4.0) g/dL Albumin/Globulin Ratio 0.7 L (0.9-1.6) Lipase (73-393) U/L Urine Color Urine Appearance Urine pH (5.0-8.0) Ur Specific Pitcher (1.001-1.035) Urine Protein (NEGATIVE) mg/dL Urine Glucose (UA) (NEGATIVE) mg/dL Urine Ketones (NEGATIVE) mg/dL Urine Occult Blood (NEGATIVE) Urine Nitrite (NEGATIVE) Urine Bilirubin (NEGATIVE) Urine Urobilinogen (<2.0) EU/dL Ur Leukocyte Esterase (NEGATIVE) Urine HCG, Qual (NEGATIVE) H. pylori IgG Antibody NEGATIVE (NEG) Blood Type Antibody Screen Crossmatch Result Diagrams: 12/24/18 12:44 12/24/18 13:35 Consult PN Assessment/Plan (1) Epigastric pain SNOMED Code(s): 15588519 Code(s): R10.13 - EPIGASTRIC PAIN Priority: High Current Visit: Yes Problem List Initiated/Reviewed/Updated: Yes My Orders Last 24 Hours: My Active Orders 12/24/18 12:23 Blood Culture x2 Reflex Set [OM.PC] Stat 12/24/18 12:44 CULTURE BLOOD [BC] Stat 12/24/18 13:35 CULTURE BLOOD [BC] Stat Plan: I ordered repeat CBC, CMP and H. pylori antigen test. H. pylori antigen test is negative. Her white blood cell count has come down to 14,000. Her alkaline phosphatase is mildly elevated at 117. I reviewed her imaging with our radiologist. There appears to be some thickening and inflammation around the antrum the stomach which may indicate an ulcer. He felt her gallbladder distention did not appear that severe. She does have some appendicoliths in her appendix with no signs of inflammation. My feeling is that she may have a stomach ulcer which is causing her abdominal pain. Given her heavy menstruation this may be the source of her anemia. She refuses to let me do any procedures on her including a digital rectal exam. If she has a bowel movement I would send this for occult blood testing. The patient should be treated with PPI therapy and Carafate. She can start a clear liquid diet to see if she tolerates this. Dr. Sheffield and I discussed broad-spectrum antibiotics which she will begin today. I would keep the patient overnight for close observation. If in the morning her white blood cell count is down to normal she can be switched over to oral medications and possibly discharge home as long as her pain is under control she is otherwise stable.
[2018-12-24] MEDS ORDERED: rOPINIRole 1 MG Tab PO SCH (21:00)
[2018-12-24] MEDS ORDERED: Temazepam 15 MG Cap PO PRN (23:12)
[2018-12-25] MEDS: Morphine 2 MG/ML Syringe IVPUSH PRN ×2 (02:54→06:59)
[2018-12-25] MEDS: Sodium Chloride 0.9% 1,000 ML IV SCH (06:06)
[2018-12-25] MEDS: traMADol 50 MG Tab PO SCH (06:58)
[2018-12-25 07:14] LABS: CHLORIDE,CL 108 mmol/L (98-107); SODIUM,NA 142 mmol/L (136-145)
--- NOTE | 2018-12-25 08:42 | PCM.DCSUM1 ---
Discharge Summary - Hospital Course Diagnosis: Stroke: No - Discharge Data Discharge Date: 12/25/18 Discharge Disposition: Home, Self-Care 01 Condition: Fair - Discharge Diagnosis/Problem(s) (1) Epigastric pain SNOMED Code(s): 47027240 ICD Code: R10.13 - EPIGASTRIC PAIN Status: Resolved Priority: High (2) Anemia SNOMED Code(s): 627078429 ICD Code: D64.9 - ANEMIA, UNSPECIFIED Status: Chronic Priority: High Qualifiers: Anemia type: iron deficiency Iron deficiency anemia type: chronic blood loss Qualified Code(s): D50.0 - Iron deficiency anemia secondary to blood loss (chronic) (3) Chronic migraine SNOMED Code(s): 717518335 ICD Code: G43.709 - CHRONIC MIGRAINE W/O AURA, NOT INTRACTABLE, W/O STAT MIGR Status: Chronic Priority: High (4) Hypertension SNOMED Code(s): 46078828 ICD Code: I10 - ESSENTIAL (PRIMARY) HYPERTENSION Status: Chronic Priority : High Qualifiers: Hypertension type: essential hypertension Qualified Code(s): I10 - Essential (primary) hypertension - Patient Summary/Data Consults: Consultations 12/24/18 07:09 Consult to Physician [CONS] Routine Hospital Course: The patient is a 43-year-old lady who had presented to the emergency department yesterday with a complaint of severe epigastric pain which radiates around both sides of her lower rib cage. The pain has been described as sharp and stabbing. The patient also had severe nausea and vomiting and had been unable to keep food down. Patient's overall health problems started approximately one week ago. The patient also admits to heavy NSAID use with up to 12 ibuprofen a day for chronic pain relief due to her migraine headache history. The patient initially had a hemoglobin of 4.9 g/dL and the patient had been transfused with 2 units of packed red blood cells. The patient tolerated the procedure well. Her post transfusion hemoglobin was at 7.7 g/dL. The patient felt better. Her symptoms had resolved. The patient's H. pylori testing was negative. The patient also had been consulted with surgery with regards to possible gastric ulcers a result of heavy NSAID use. The patient had been counseled with regards to ibuprofen use. The patient was anxious for discharge and felt that she can safely be discharged today. The patient should follow up with general surgeon for possible endoscopy. The patient is also to follow-up with primary care physician. The patient also had been tolerating her diet as she is recommended continue with the diet as tolerated. She is also to have activity as tolerated. The patient is hemodynamically stable and she's been also recommended to take [id number] iron. She is discharged from acute hospitalization with recommendations listed above. - Patient Instructions Diet: Heart Healthy Diet Activity: As Tolerated - Discharge Plan *PRESCRIPTION DRUG MONITORING PROGRAM REVIEWED*: No *COPY OF PRESCRIPTION DRUG MONITORING REPORT IN PATIENT ELIEZER: No Prescriptions/Med Rec: Ciprofloxacin HCl [Cipro] 500 mg PO BID #10 tablet Hydrocodone/Acetaminophen [Hydrocodon-Acetaminophen 5-325] 1 each PO Q6H PRN # 20 tablet PRN Reason: Abdominal Pain Sucralfate [Carafate] 1 gm PO QIDACANDBED #40 cup Home Medications: Home Meds Calcium Carbonate [Calcium] 500 mg PO DAILY 12/23/18 [History] Levonorgestrel-Ethin Estradiol [Lutera-28 Tablet] 1 each PO DAILY 12/23/18 [ History] Lisinopril 20 mg PO DAILY 12/23/18 [History] MV,Ca,Min/Iron Fum/FA/Vit K [Multi For Her Tablet] 1 each PO DAILY 12/23/18 [ History] Magnesium 250 mg PO DAILY 12/23/18 [History] Ondansetron [Zofran] 4 mg PO Q8H PRN 12/23/18 [History] Pantoprazole [ProTONIX] 40 mg PO DAILY 12/23/18 [History] Potassium 99 mg PO DAILY 12/23/18 [History] rOPINIRole [Requip] 1 mg PO BEDTIME 12/23/18 [History] traMADol [Ultram] 50 mg PO Q8H 12/23/18 [History] Ciprofloxacin HCl [Cipro] 500 mg PO BID #10 tablet 12/25/18 [Rx] Hydrocodone/Acetaminophen [Hydrocodon-Acetaminophen 5-325] 1 each PO Q6H PRN # 20 tablet 12/25/18 [Rx] Sucralfate [Carafate] 1 gm PO QIDACANDBED #40 cup 12/25/18 [Rx] Temazepam [Restoril] 15 mg PO BEDTIME PRN cap 12/25/18 [Rx] Oxygen Therapy Mode: Room Air Patient Handouts: Acetaminophen; Hydrocodone tablets or capsules, Sucralfate tablets, Gastrointestinal Bleeding, [id number], Ciprofloxacin tablets Referrals: Mariann Wilcox MD [Physician] - (Please call on Thursday and schedule a follow up appointment.) - Discharge Summary/Plan Comment DC Time >30 min.: Yes - General Info Date of Service: 12/25/18 Admission Dx/Problem (Free Text: Admission Diagnosis/Problem Admission Diagnosis/Problem Anemia, epigastric abdominal pain, excessive NSAID use, chronic back pains and migraines Functional Status: Reports: Pain Controlled - Review of Systems General: Reports: No Symptoms HEENT: Reports: No Symptoms Pulmonary: Reports: No Symptoms Cardiovascular: Reports: No Symptoms Gastrointestinal: Reports: No Symptoms Genitourinary: Reports: No Symptoms Musculoskeletal: Reports: No Symptoms Skin: Reports: No Symptoms Neurological: Reports: No Symptoms Psychiatric: Reports: No Symptoms - Patient Data Vitals - Most Recent: Last Vital Signs Temp 36.5 C 12/25/18 07:36 Pulse 68 12/25/18 07:36 Resp 16 12/25/18 07:36 BP 159/100 H 12/25/18 07:36 Pulse Ox 100 12/25/18 07:36 Weight - Most Recent: 72.802 kg I&O - Last 24 hours: Intake & Output 12/24/18 12/25/18 12/25/18 22:59 06:59 14:59 Intake Total 1331 2338 Output Total 700 1200 Balance 631 1138 Lab Results - Last 24 hrs: Laboratory Results - last 24 hr 12/23/18 12/24/18 12/24/18 Range/Units 21:52 12:44 13:35 WBC 14.07 H (4.0-11.0) K/uL RBC 3.62 L (4.30-5.90) M/uL Hgb 7.9 L (12.0-16.0) g/dL Hct 26.3 L (36.0-46.0) % MCV 72.7 L (80.0-98.0) fL MCH 21.8 L (27.0-32.0) pg MCHC 30.0 L (31.0-37.0) g/dL RDW Std Deviation 53.3 (28.0-62.0) fl RDW Coeff of Don 20 H (11.0-15.0) % Plt Count 522 H (150-400) K/uL MPV 9.30 (7.40-12.00) fL Neut % (Auto) 80.2 H (48.0-80.0) % Lymph % (Auto) 11.0 L (16.0-40.0) % [place] % (Auto) 7.8 (0.0-15.0) % Eos % (Auto) 0.8 (0.0-7.0) % Baso % (Auto) 0.2 (0.0-1.5) % Neut # (Auto) 11.3 H (1.4-5.7) K/uL Lymph # (Auto) 1.6 (0.6-2.4) K/uL [place] # (Auto) 1.1 H (0.0-0.8) K/uL Eos # (Auto) 0.1 (0.0-0.7) K/uL Baso # (Auto) 0.0 (0.0-0.1) K/uL Add Manual Diff Neutrophils % (Manual) (48.0-80.0) % Band Neutrophils % % Lymphocytes % (Manual) (16.0-40.0) % Monocytes % (Manual) (0.0-15.0) % Eosinophils % (Manual) (0.0-7.0) % Nucleated RBC % 0.4 /100WBC Absolute Seg Neuts (1.4-5.7) Band Neutrophils # Lymphocytes # (Manual) (0.6-2.4) Monocytes # (Manual) (0.0-0.8) Eosinophils # (Manual) (0.0-0.7) Nucleated RBCs # 0 K/uL Sodium 142 (136-145) mmol/L Potassium 4.2 (3.5-5.1) mmol/L Chloride 107 (98-107) mmol/L Carbon Dioxide 20.9 L (21.0-32.0) mmol/L BUN 10 (7.0-18.0) mg/dL Creatinine 0.9 (0.6-1.0) mg/dL Est Cr Clr Drug Dosing 73.90 mL/min Estimated GFR (MDRD) > 60.0 ml/min Glucose 80 (74-106) mg/dL Calcium 7.7 L (8.5-10.1) mg/dL Total Bilirubin 0.4 (0.2-1.0) mg/dL AST 19 (15-37) IU/L ALT 14 (14-63) IU/L Alkaline Phosphatase 117 H (46-116) U/L Total Protein 5.2 L (6.4-8.2) g/dL Albumin 2.2 L (3.4-5.0) g/dL Globulin 3.0 (2.6-4.0) g/dL Albumin/Globulin Ratio 0.7 L (0.9-1.6) H. pylori IgG Antibody (NEG) Blood Type O POSITIVE Antibody Screen NEGATIVE Crossmatch See Detail 12/24/18 12/25/18 12/25/18 Range/Units 13:35 06:40 06:40 WBC 14.18 H (4.0-11.0) K/uL RBC 3.50 L (4.30-5.90) M/uL Hgb 7.7 L (12.0-16.0) g/dL Hct 26.0 L (36.0-46.0) % MCV 74.3 L (80.0-98.0) fL MCH 22.0 L (27.0-32.0) pg MCHC 29.6 L (31.0-37.0) g/dL RDW Std Deviation 55.5 (28.0-62.0) fl RDW Coeff of Don 21 H (11.0-15.0) % Plt Count 421 H (150-400) K/uL MPV 9.00 (7.40-12.00) fL Neut % (Auto) (48.0-80.0) % Lymph % (Auto) (16.0-40.0) % [place] % (Auto) (0.0-15.0) % Eos % (Auto) (0.0-7.0) % Baso % (Auto) (0.0-1.5) % Neut # (Auto) (1.4-5.7) K/uL Lymph # (Auto) (0.6-2.4) K/uL [place] # (Auto) (0.0-0.8) K/uL Eos # (Auto) (0.0-0.7) K/uL Baso # (Auto) (0.0-0.1) K/uL Add Manual Diff YES Neutrophils % (Manual) 80 (48.0-80.0) % Band Neutrophils % 5 % Lymphocytes % (Manual) 13 L (16.0-40.0) % Monocytes % (Manual) 1 (0.0-15.0) % Eosinophils % (Manual) 1 (0.0-7.0) % Nucleated RBC % 0.0 /100WBC Absolute Seg Neuts 11.3 H (1.4-5.7) Band Neutrophils # 0.7 Lymphocytes # (Manual) 1.8 (0.6-2.4) Monocytes # (Manual) 0.1 (0.0-0.8) Eosinophils # (Manual) 0.1 (0.0-0.7) Nucleated RBCs # 0 K/uL Sodium 142 (136-145) mmol/L Potassium 4.1 (3.5-5.1) mmol/L Chloride 108 H (98-107) mmol/L Carbon Dioxide 21.6 (21.0-32.0) mmol/L BUN 8 (7.0-18.0) mg/dL Creatinine 0.8 (0.6-1.0) mg/dL Est Cr Clr Drug Dosing 83.13 mL/min Estimated GFR (MDRD) > 60.0 ml/min Glucose 81 (74-106) mg/dL Calcium 7.9 L (8.5-10.1) mg/dL Total Bilirubin (0.2-1.0) mg/dL AST (15-37) IU/L ALT (14-63) IU/L Alkaline Phosphatase (46-116) U/L Total Protein (6.4-8.2) g/dL Albumin (3.4-5.0) g/dL Globulin (2.6-4.0) g/dL Albumin/Globulin Ratio (0.9-1.6) H. pylori IgG Antibody NEGATIVE (NEG) Blood Type Antibody Screen Crossmatch Med Orders - Current: Current Medications Sodium Chloride (Normal Saline) 1,000 mls @ 125 mls/hr IV ASDIRECTED JONATHAN Last Admin: 12/25/18 06:06 Dose: 125 mls/hr Sodium Chloride (Normal Saline) 1,000 mls @ 125 mls/hr IV ASDIRECTED JONATHAN Levofloxacin/Dextrose 500 mg/ (Premix) 100 mls @ 100 mls/hr IV Q24H [facility] Last Admin: 12/24/18 14:21 Dose: 100 mls/hr Lisinopril (Prinivil) 20 mg PO DAILY [facility] Last Admin: 12/24/18 08:36 Dose: 20 mg Magnesium Oxide (Magnesium Oxide) 400 mg PO DAILY [facility] Morphine Sulfate (Morphine) 2 mg IVPUSH Q2H PRN PRN Reason: Pain Last Admin: 12/25/18 06:59 Dose: 2 mg Ondansetron HCl (Zofran) 4 mg PO Q8H PRN PRN Reason: Nausea Last Admin: 12/24/18 23:17 Dose: 4 mg Pantoprazole Sodium (Protonix) 40 mg PO DAILY [facility] Last Admin: 12/24/18 08:36 Dose: 40 mg [Lutera-28 Tablet] 1 (Each) 1 each PO DAILY [facility] Last Admin: 12/24/18 08:45 Dose: Not Given Ropinirole HCl (Requip) 1 mg PO BEDTIME [facility] Last Admin: 12/24/18 21:09 Dose: 1 mg Temazepam (Restoril) 15 mg PO BEDTIME PRN PRN Reason: Sleep Last Admin: 12/24/18 23:17 Dose: 15 mg Tramadol HCl (Ultram) 50 mg PO Q8H [facility] Last Admin: 12/25/18 06:58 Dose: 50 mg Discontinued Medications Furosemide (Lasix) 20 mg IVPUSH NOW ONE Stop: 12/24/18 01:16 Last Admin: 12/24/18 01:23 Dose: 20 mg Sodium Chloride (Normal Saline) 1,000 mls @ 999 mls/hr IV STAT ONE Stop: 12/23/18 22:32 Last Admin: 12/23/18 22:00 Dose: 999 mls/hr Sodium Chloride (Normal Saline) Confirm Administered Dose 20 mls @ as directed .ROUTE .STK-MED ONE Stop: 12/23/18 21:56 Last Admin: 12/23/18 22:00 Dose: 20 mls/hr Iopamidol (Isovue Multipack-370 (76%)) 100 ml IVPUSH ONETIME STA Stop: 12/23/18 22:50 Last Admin: 12/23/18 22:49 Dose: 100 ml Morphine Sulfate (Morphine) 2 mg IVPUSH ONETIME ONE Stop: 12/23/18 21:33 Last Admin: 12/23/18 22:00 Dose: 2 mg Morphine Sulfate (Morphine) 4 mg IVPUSH ONETIME ONE Stop: 12/23/18 23:51 Last Admin: 12/24/18 00:00 Dose: 4 mg Morphine Sulfate (Morphine) 2 mg IVPUSH Q4H PRN PRN Reason: Pain Last Admin: 12/24/18 22:31 Dose: 2 mg Morphine Sulfate (Morphine) 2 mg IVPUSH Q2H PRN PRN Reason: Pain (severe 7-10) Stop: 12/25/18 07:11 Last Admin: 12/24/18 07:30 Dose: 2 mg Ondansetron HCl (Zofran) 8 mg IVPUSH ONETIME ONE Stop: 12/23/18 21:33 Last Admin: 12/23/18 22:02 Dose: 8 mg Pantoprazole Sodium (Protonix Iv) 80 mg IVPUSH .BOLUS ONE Stop: 12/23/18 21:43 Last Admin: 12/23/18 22:01 Dose: 80 mg [Magnesium] 250 Mg 1 each PO DAILY [facility] Last Admin: 12/24/18 08:45 Dose: Not Given [Potassium] 99 Mg 1 each PO DAILY [facility] Last Admin: 12/24/18 08:45 Dose: Not Given - Exam Quality Assessment: Denies: Supplemental Oxygen General: Reports: Alert, Oriented, Cooperative, No Acute Distress HEENT: Reports: Pupils Equal, Pupils Reactive, EOMI, Mucous Membr. Moist/Nogal Neck: Reports: Supple, Trachea Midline Lungs: Reports: Clear to Auscultation, Normal Respiratory Effort Cardiovascular: Reports: Regular Rate, Regular Rhythm GI/Abdominal Exam: Normal Bowel Sounds, Soft, Non-Tender, No Distention Back Exam: Reports: Normal Inspection, Full Range of Motion Extremities: Normal Inspection, Normal Range of Motion, No Pedal Edema Skin: Reports: Warm, Dry, Intact Neurological: Reports: No New Focal Deficit Psy/Mental Status: Reports: Alert, Normal Affect, Normal Mood *Q Meaningful Use (DIS) - VTE *Q VTE Pharmacological Contraindications *Q: Risk of Bleeding
[2018-12-25] MEDS ORDERED: Magnesium Oxide 400 MG Tab PO SCH (09:00)
[2018-12-25] MEDS: Lisinopril 10 MG Tab PO SCH (09:27)
[2018-12-25] MEDS: Pantoprazole 40 MG Tab.CR PO SCH (09:27)
== END 2018-12-25 10:10 | disposition home or self-care (01) ==
LOC: MW.ED 21:29 → MW.MS 12-24 01:41
PROVIDERS: ADMIT Internal Medicine; ATTEND Internal Medicine
DX: D50.0 Iron deficiency anemia secondary to blood loss (chronic) (principal); R10.13 Epigastric pain; G43.709 Chronic migraine without aura, not intractable, without status migrainosus; I10 Essential (primary) hypertension; M54.9 Dorsalgia, unspecified; G89.29 Other chronic pain; F17.210 Nicotine dependence, cigarettes, uncomplicated; Z87.09 Personal history of other diseases of the respiratory system; Z79.1 Long term (current) use of non-steroidal anti-inflammatories (NSAID); Z79.899 Other long term (current) drug therapy
CPT/HCPCS: 36415; 36430; 74177; 76705; 80048; 80053; 81003; 81025; 83690; 84484; 85014; 85018; 85025; 86677; 86850; 86900; 86901; 86920; 86921; 86922; 87040; 93005; 96361; 96374; 96375; 96376; 99285; A4217; A9270; C9113; G0378; J1940; J1956; J2270; J2405; J7040; P9016; Q9967; 99283

== ENCOUNTER 2018-12-25 19:58 | Emergency (ER) | payer SELFPAY ==
--- NOTE | 2018-12-25 20:13 | EDM.PDOC ---
ED HPI GENERAL MEDICAL PROBLEM - General Chief Complaint: Abdominal Pain Stated Complaint: STOMACH PAIN Time Seen by Provider: 12/25/18 20:09 - History of Present Illness INITIAL COMMENTS - FREE TEXT/NARRATIVE: HISTORY AND PHYSICAL: History of present illness: Patient's 43-year-old female who was discharged from hospital this a.m. after being treated for abdominal pain and was diagnosed with biliary colic she is also scheduled follow-up Gen. surgery for that and possible evaluation for endoscopy. She returns today with recurrence of the same abdominal pain is been no fever chills vomiting or diarrhea. Review of systems: As per history of present illness and below otherwise all systems reviewed and negative. Past medical history: As per history of present illness and as reviewed below otherwise noncontributory. Surgical history: As per history of present illness and as reviewed below otherwise noncontributory. Social history: No reported history of drug or alcohol abuse. Family history: As per history of present illness and as reviewed below otherwise noncontributory. Physical exam: HEENT: Atraumatic, normocephalic, pupils reactive, negative for conjunctival pallor or scleral icterus, mucous membranes moist, throat clear, neck supple, nontender, trachea midline. Lungs: Clear to auscultation, breath sounds equal bilaterally, chest nontender. Heart: S1S2, regular, negative for clicks, rubs, or JVD. Abdomen: Soft, nondistended, no localized tenderness Negative for masses or hepatosplenomegaly. Negative for costovertebral tenderness. Pelvis: Stable nontender. Genitourinary: Deferred. Rectal: Deferred. Extremities: Atraumatic, negative for cords or calf pain. Neurovascular unremarkable. Neuro: Awake, alert, oriented. Cranial nerves II through XII unremarkable. Cerebellum unremarkable. Motor and sensory unremarkable throughout. Exam nonfocal. Diagnostics: CBC CMP lipase acute abdominal series Therapeutics: Saline 1 L bolus Toradol 30 IV Zofran 4 mg IV Impression: #1 abdominal pain #2 history of biliary colic Definitive disposition and diagnosis as appropriate pending reevaluation and review of above. Upper Abdominal Pain Score (Numeric/FACES): 9 - Related Data Allergies Allergy/AdvReac Type Severity Reaction Status Date / Time Penicillins Allergy Anaphylactic Verified 12/25/18 20:13 Shock Home Meds: Home Meds Calcium Carbonate [Calcium] 500 mg PO DAILY 12/23/18 [History] Levonorgestrel-Ethin Estradiol [Lutera-28 Tablet] 1 each PO DAILY 12/23/18 [ History] Lisinopril 20 mg PO DAILY 12/23/18 [History] MV,Ca,Min/Iron Fum/FA/Vit K [Multi For Her Tablet] 1 each PO DAILY 12/23/18 [ History] Magnesium 250 mg PO DAILY 12/23/18 [History] Ondansetron [Zofran] 4 mg PO Q8H PRN 12/23/18 [History] Pantoprazole [ProTONIX] 40 mg PO DAILY 12/23/18 [History] Potassium 99 mg PO DAILY 12/23/18 [History] rOPINIRole [Requip] 1 mg PO BEDTIME 12/23/18 [History] traMADol [Ultram] 50 mg PO Q8H 12/23/18 [History] Ciprofloxacin HCl [Cipro] 500 mg PO BID #10 tablet 12/25/18 [Rx] Hydrocodone/Acetaminophen [Hydrocodon-Acetaminophen 5-325] 1 each PO Q6H PRN # 20 tablet 12/25/18 [Rx] Sucralfate [Carafate] 1 gm PO QIDACANDBED #40 cup 12/25/18 [Rx] Temazepam [Restoril] 15 mg PO BEDTIME PRN cap 12/25/18 [Rx] Past Medical History - Past Health History Medical/Surgical History: Denies Medical/Surgical History Cardiovascular History: Reports: Hypertension Respiratory History: Reports: Asthma Gastrointestinal History: Reports: None Genitourinary History: Reports: None [employer] History: Reports: Musculoskeletal History: Reports: None Neurological History: Reports: Concussion, Migraines Psychiatric History: Reports: None Endocrine/Metabolic History: Reports: None Hematologic History: Reports: None Immunologic History: Reports: None Oncologic (Cancer) History: Reports: None Dermatologic History: Reports: None - Infectious Disease History Infectious Disease History: Reports: None - Past Surgical History Head Surgeries/Procedures: Reports: None HEENT Surgical History: Reports: Oral Surgery Social & Family History - Family History Family Medical History: Noncontributory - Caffeine Use Caffeine Use: Reports: Coffee ED ROS GENERAL - Review of Systems Review Of Systems: ROS reveals no pertinent complaints other than HPI. ED EXAM, GENERAL - Physical Exam Exam: See Below (dictation) Course - Vital Signs Text/Narrative:: Patient's emergency department course has been unremarkable I discussed patient diagnostics an elevated white blood cell count similar to her recent value on admission I discussed with patient admission for observation IV hydration and continuation of her antibiotics patient opts to continue her oral Course of antibiotics follow-up with private medical doctor in general surgery referral is planned Last Recorded V/S: Last Vital Signs Temp 36.1 C 12/25/18 20:09 Pulse 78 12/25/18 20:09 Resp 20 12/25/18 20:09 BP 141/78 H 12/25/18 20:09 Pulse Ox 98 12/25/18 20:09 - Orders/Labs/Meds Labs: Laboratory Tests 12/25/18 12/25/18 Range/Units 20:20 20:20 WBC 17.30 H (4.0-11.0) K/uL RBC 3.92 L (4.30-5.90) M/uL Hgb 8.6 L (12.0-16.0) g/dL Hct 28.9 L (36.0-46.0) % MCV 73.7 L (80.0-98.0) fL MCH 21.9 L (27.0-32.0) pg MCHC 29.8 L (31.0-37.0) g/dL RDW Std Deviation 55.8 (28.0-62.0) fl RDW Coeff of Don 21 H (11.0-15.0) % Plt Count 536 H (150-400) K/uL MPV 9.10 (7.40-12.00) fL Add Manual Diff YES Neutrophils % (Manual) 81 H (48.0-80.0) % Band Neutrophils % 2 % Lymphocytes % (Manual) 12 L (16.0-40.0) % Monocytes % (Manual) 5 (0.0-15.0) % Nucleated RBC % 0.0 /100WBC Absolute Seg Neuts 14.0 H (1.4-5.7) Band Neutrophils # 0.3 Lymphocytes # (Manual) 2.1 (0.6-2.4) Monocytes # (Manual) 0.9 H (0.0-0.8) Nucleated RBCs # 0 K/uL Sodium 142 (136-145) mmol/L Potassium 3.7 (3.5-5.1) mmol/L Chloride 105 (98-107) mmol/L Carbon Dioxide 26.0 (21.0-32.0) mmol/L BUN 8 (7.0-18.0) mg/dL Creatinine 0.8 (0.6-1.0) mg/dL Est Cr Clr Drug Dosing 83.13 mL/min Estimated GFR (MDRD) > 60.0 ml/min Glucose 103 (74-106) mg/dL Calcium 8.7 (8.5-10.1) mg/dL Total Bilirubin 0.3 (0.2-1.0) mg/dL AST 17 (15-37) IU/L ALT 16 (14-63) IU/L Alkaline Phosphatase 128 H (46-116) U/L Total Protein 6.3 L (6.4-8.2) g/dL Albumin 2.4 L (3.4-5.0) g/dL Globulin 3.9 (2.6-4.0) g/dL Albumin/Globulin Ratio 0.6 L (0.9-1.6) Lipase 38 L (73-393) U/L Meds: Medications Discontinued Medications Generic Name Dose Route Start Last Admin Trade Name Freq PRN Reason Stop Dose Admin Sodium Chloride 1,000 mls @ 999 mls/hr 12/25/18 20:19 12/25/18 20:25 Normal Saline IV 12/25/18 21:19 999 mls/hr STAT ONE Administration Ketorolac Tromethamine 30 mg 12/25/18 20:19 12/25/18 20:25 Toradol IVPUSH 12/25/18 20:20 30 mg ONETIME ONE Administration Ondansetron HCl 4 mg 12/25/18 20:19 12/25/18 20:25 Zofran IVPUSH 12/25/18 20:20 4 mg ONETIME ONE Administration Departure - Departure Time of Disposition: 21:49 Disposition: Home, Self-Care 01 Condition: Good Clinical Impression: Biliary colic, Leukocytosis Anemia Qualifiers: Anemia type: iron deficiency Iron deficiency anemia type: chronic blood loss Qualified Code(s): D50.0 - Iron deficiency anemia secondary to blood loss ( chronic) - Discharge Information Referrals: Lona Campos [employer] [Primary Care Provider] - Forms: ED Department Discharge Additional Instructions: The following information is given to patients seen in the emergency department who are being discharged to home. This information is to outline your options for follow-up care. We provide all patients seen in our emergency department with a follow-up referral. The need for follow-up, as well as the timing and circumstances, are variable depending upon the specifics of your emergency department visit. If you don't have a primary care physician on staff, we will provide you with a referral. We always advise you to contact your personal physician following an emergency department visit to inform them of the circumstance of the visit and for follow-up with them and/or the need for any referrals to a consulting specialist. The emergency department will also refer you to a specialist when appropriate. This referral assures that you have the opportunity for followup care with a specialist. All of these measure are taken in an effort to provide you with optimal care, which includes your followup. Under all circumstances we always encourage you to contact your private physician who remains a resource for coordinating your care. When calling for followup care, please make the office aware that this follow-up is from your recent emergency room visit. If for any reason you are refused follow-up, please contact the [facility] emergency department at and asked to speak to the emergency department charge nurse. Continue Cipro keep scheduled appointments for follow-up with general surgery and private medical doctor push fluids as discussed and return as needed as discussed
[2018-12-25] MEDS ORDERED: Sodium Chloride 0.9% 1,000 ML IV ONE (20:19)
[2018-12-25] MEDS ORDERED: Ondansetron 4 MG/2 ML SDV IVPUSH ONE (20:19)
[2018-12-25] MEDS ORDERED: Ketorolac 30 MG/ML SDV IVPUSH ONE (20:19)
[2018-12-25 21:01] LABS: CHLORIDE,CL 105 mmol/L (98-107); SODIUM,NA 142 mmol/L (136-145)
--- NOTE | 2018-12-25 21:32 | CR ---
HISTORY: Vomiting. Thickness. COMPARISON: CT 12/23/2018. FINDINGS: The lungs are clear. Costophrenic angles sharp. Heart size and pulmonary vascularity are within normal limits. There is a paucity of small bowel gas which may indicate fluid filled loops. There is a large amount of stool present. Bony structures and soft tissues are within normal. Dictated by Katherin Brothers MD @ Dec 25 2018 9:30PM Signed by Dr. Katherin Brothers @ Dec 25 2018 9:31PM
== END 2018-12-25 22:05 | disposition home or self-care (01) ==
LOC: MW.ED 19:58
DX: K80.50 Calculus of bile duct without cholangitis or cholecystitis without obstruction (principal); D50.0 Iron deficiency anemia secondary to blood loss (chronic); D72.829 Elevated white blood cell count, unspecified; I10 Essential (primary) hypertension; Z98.890 Other specified postprocedural states; Z88.0 Allergy status to penicillin; Z79.899 Other long term (current) drug therapy
CPT/HCPCS: 36415; 74022; 80053; 83690; 85025; 96361; 96374; 96375; 99283; J1885; J2405; J7040

== ENCOUNTER 2018-12-31 10:37 | Observation (INO) | payer SELFPAY ==
--- NOTE | 2018-12-31 10:46 | EDM.PDOC ---
ED HPI GENERAL MEDICAL PROBLEM - General Chief Complaint: Abdominal Pain Stated Complaint: SENT OVER BY DR WILCOX Time Seen by Provider: 12/31/18 10:43 Source of Information: Reports: Patient History Limitations: Reports: No Limitations - History of Present Illness INITIAL COMMENTS - FREE TEXT/NARRATIVE: HISTORY AND PHYSICAL: History of present illness: Patient is a 43-year-old female who presents to the emergency room with complaints of epigastric pain. She has been seen in the emergency room twice before and also has been admitted for biliary colic. She states she was treated with a course of Cipro and given pain medication. She states she has completed her antibiotics and has been out of her pain medication for several days. She currently is complaining of the epigastric pain, nausea and requesting pain medication refill. She states she did call Dr. Wilcox who requested she come to the emergency room for evaluation. Patient denies any fever, chills, headache, change in vision, syncope or near syncope. Denies any chest pain, back pain, shortness of breath or cough. Denies any vomiting, diarrhea, constipation or dysuria. Has not noted any blood in urine or stool. Patient has been eating and drinking appropriately. Review of systems: As per history of present illness and below otherwise all systems reviewed and negative. Past medical history: As per history of present illness and as reviewed below otherwise noncontributory. Surgical history: As per history of present illness and as reviewed below otherwise noncontributory. Social history: See social history for further information Family history: As per history of present illness and as reviewed below otherwise noncontributory. Physical exam: General: Well-developed and well-nourished 43-year-old female. Alert and oriented. Nontoxic appearing and in no acute distress. HEENT: Atraumatic, normocephalic, pupils equal and reactive bilaterally, negative for conjunctival pallor or scleral icterus, mucous membranes moist, TMs normal bilaterally, throat clear, neck supple, nontender, trachea midline. No drooling or trismus noted. No meningeal signs. No hot potato voice noted. Lungs: Clear to auscultation, breath sounds equal bilaterally, chest nontender. Heart: S1S2, regular rate and rhythm without overt murmur Abdomen: Soft, nondistended, mild nonspecific tenderness. Negative for masses. Negative for costovertebral tenderness. Pelvis: Stable nontender. Genitourinary: Deferred. Rectal: Deferred. Skin: Intact, warm, dry. No lesions or rashes noted. Extremities: Atraumatic, moves all extremities per self without difficulty or deficits, negative for cords or calf pain. Neurovascular unremarkable. Neuro: Awake, alert, oriented. Cranial nerves II through XII unremarkable. Cerebellum unremarkable. Motor and sensory unremarkable throughout. Exam nonfocal. Notes: 12/23/2018: Patient was admitted for a hemoglobin of 4.9 g/dL. Transfused with 2 units of packed red blood cells. Gallbladder moderately distended without evidence of stone or inflammation. Patient was discharged to home. 12/25/2018: Abdominal ultrasound shows mild to moderate nonspecific distention of the gallbladder, measuring 4.5 cm in diameter. Patient was taking Cipro, Carafate and oral pain medication. She was offered admission at this time but declined. CT of Abd/Pelvis shows: The wall of the distal stomach appears thickened. The gastric folds appear thickened. Findings are concerning for gastritis. This appears slightly increased from the recent comparison of 12/23/2018. Consider upper endoscopic assessment. No findings to suggest bowel obstruction. No significant free fluid noted. Some cortical scarring of the right kidney incidentally noted. Endometrial stripe thickness is borderline at approximately 1.6 cm. This is favored to be of benign etiology. Dr Wilcox here to see patient. She did offer the patient transferred to [facility] for more specialty care. Patient declines and would like to stay at our facility. Dr Wilcox will follow up with this patient as consult, for further care. Dr. Zelaya was consulted on this case. He is agreeable to keeping this patient. Will start Flagyl and Rocephin IV. Patient and family is aware of her hospital stay. Vital signs remain stable Diagnostics: CBC, CMP, UA, lipase, CT abdomen/pelvis Therapeutics: IV fluid, Zofran, morphine, Flagyl and Rocephine Impression: Gastritis Anemia Plan: Observation admission to Med/Surg Definitive disposition and diagnosis as appropriate pending reevaluation and review of above. RUQ Pain Score (Numeric/FACES): 9 - Related Data Allergies Allergy/AdvReac Type Severity Reaction Status Date / Time ciprofloxacin [From Cipro] Allergy Nausea and Verified 12/31/18 10:54 Vomiting Penicillins Allergy Anaphylactic Verified 12/31/18 10:50 Shock Home Meds: Home Meds Calcium Carbonate [Calcium] 500 mg PO DAILY 12/23/18 [History] Levonorgestrel-Ethin Estradiol [Lutera-28 Tablet] 1 each PO DAILY 12/23/18 [ History] Lisinopril 20 mg PO DAILY 12/23/18 [History] MV,Ca,Min/Iron Fum/FA/Vit K [Multi For Her Tablet] 1 each PO DAILY 12/23/18 [ History] Magnesium 250 mg PO DAILY 12/23/18 [History] Ondansetron [Zofran] 4 mg PO Q8H PRN 12/23/18 [History] Pantoprazole [ProTONIX] 40 mg PO DAILY 12/23/18 [History] Potassium 99 mg PO DAILY 12/23/18 [History] rOPINIRole [Requip] 1 mg PO BEDTIME 12/23/18 [History] traMADol [Ultram] 50 mg PO Q8H 12/23/18 [History] Sucralfate [Carafate] 1 gm PO QIDACANDBED #40 cup 12/25/18 [Rx] Temazepam [Restoril] 15 mg PO BEDTIME PRN cap 12/25/18 [Rx] Past Medical History - Past Health History Medical/Surgical History: Denies Medical/Surgical History Cardiovascular History: Reports: Hypertension Respiratory History: Reports: Asthma Gastrointestinal History: Reports: None Genitourinary History: Reports: None LIFEGUARD History: Reports: Musculoskeletal History: Reports: None Neurological History: Reports: Concussion, Migraines Psychiatric History: Reports: None Endocrine/Metabolic History: Reports: None Hematologic History: Reports: None Immunologic History: Reports: None Oncologic (Cancer) History: Reports: None Dermatologic History: Reports: None - Infectious Disease History Infectious Disease History: Reports: None - Past Surgical History Head Surgeries/Procedures: Reports: None HEENT Surgical History: Reports: Oral Surgery Social & Family History - Family History Family Medical History: Noncontributory - Caffeine Use Caffeine Use: Reports: Coffee ED ROS GENERAL - Review of Systems Review Of Systems: ROS reveals no pertinent complaints other than HPI. ED EXAM, GI/ABD - Physical Exam Exam: See Below (See dictation) Course - Vital Signs Last Recorded V/S: Last Vital Signs Temp 97.1 F 12/31/18 10:50 Pulse 84 12/31/18 10:50 Resp 16 12/31/18 10:50 BP 119/55 L 12/31/18 10:50 Pulse Ox 98 12/31/18 10:50 - Orders/Labs/Meds Orders: Active Orders 24 hr Category Date Time Status Notify Provider Consults [RC] ASDIRECTED Care 12/31/18 13:07 Ordered Consult to Physician [CONS] Stat Cons 12/31/18 13:07 Ordered Labs: Laboratory Tests 12/31/18 12/31/18 12/31/18 Range/Units 11:21 11:21 11:49 WBC 14.21 H (4.0-11.0) K/uL RBC 4.39 (4.30-5.90) M/uL Hgb 9.7 L (12.0-16.0) g/dL Hct 33.8 L (36.0-46.0) % MCV 77.0 L (80.0-98.0) fL MCH 22.1 L (27.0-32.0) pg MCHC 28.7 L (31.0-37.0) g/dL RDW Std Deviation 65.1 H (28.0-62.0) fl RDW Coeff of Don 24 H (11.0-15.0) % Plt Count 776 H (150-400) K/uL MPV 9.10 (7.40-12.00) fL Neut % (Auto) 87.8 H (48.0-80.0) % Lymph % (Auto) 7.5 L (16.0-40.0) % [place] % (Auto) 4.4 (0.0-15.0) % Eos % (Auto) 0.0 (0.0-7.0) % Baso % (Auto) 0.3 (0.0-1.5) % Neut # (Auto) 12.5 H (1.4-5.7) K/uL Lymph # (Auto) 1.1 (0.6-2.4) K/uL [place] # (Auto) 0.6 (0.0-0.8) K/uL Eos # (Auto) 0.0 (0.0-0.7) K/uL Baso # (Auto) 0.0 (0.0-0.1) K/uL Nucleated RBC % 0.0 /100WBC Nucleated RBCs # 0 K/uL Sodium 138 (136-145) mmol/L Potassium 3.5 (3.5-5.1) mmol/L Chloride 98 (98-107) mmol/L Carbon Dioxide 25.6 (21.0-32.0) mmol/L BUN 8 (7.0-18.0) mg/dL Creatinine 1.0 (0.6-1.0) mg/dL Est Cr Clr Drug Dosing 66.51 mL/min Estimated GFR (MDRD) 60.0 ml/min Glucose 85 (74-106) mg/dL Calcium 9.9 (8.5-10.1) mg/dL Total Bilirubin 0.4 (0.2-1.0) mg/dL AST 19 (15-37) IU/L ALT 19 (14-63) IU/L Alkaline Phosphatase 135 H (46-116) U/L Total Protein 8.2 (6.4-8.2) g/dL Albumin 3.6 (3.4-5.0) g/dL Globulin 4.6 H (2.6-4.0) g/dL Albumin/Globulin Ratio 0.8 L (0.9-1.6) Lipase 44 L (73-393) U/L Urine Color YELLOW Urine Appearance CLEAR Urine pH 6.5 (5.0-8.0) Ur Specific [place] 1.020 (1.001-1.035) Urine Protein NEGATIVE (NEGATIVE) mg/dL Urine Glucose (UA) NEGATIVE (NEGATIVE) mg/dL Urine Ketones 40 H (NEGATIVE) mg/dL Urine Occult Blood NEGATIVE (NEGATIVE) Urine Nitrite NEGATIVE (NEGATIVE) Urine Bilirubin SMALL H (NEGATIVE) Urine Ictotest POSITIVE Urine Urobilinogen 0.2 (<2.0) EU/dL Ur Leukocyte Esterase NEGATIVE (NEGATIVE) Meds: Medications Discontinued Medications Generic Name Dose Route Start Last Admin Trade Name Freq PRN Reason Stop Dose Admin Sodium Chloride 1,000 mls @ 999 mls/hr 12/31/18 10:52 12/31/18 11:19 Normal Saline IV 12/31/18 11:52 999 mls/hr NOW STA Administration Iopamidol 85 ml 12/31/18 13:00 12/31/18 13:00 Isovue Multipack-370 (76%) IVPUSH 12/31/18 13:01 85 ml ONETIME ONE Administration Morphine Sulfate 2 mg 12/31/18 10:52 12/31/18 11:21 Morphine IVPUSH 12/31/18 10:53 2 mg ONETIME ONE Administration Ondansetron HCl 4 mg 12/31/18 10:52 12/31/18 11:20 Zofran IVPUSH 12/31/18 10:53 4 mg ONETIME ONE Administration Departure - Departure Time of Disposition: 13:13 Disposition: Refer to Observation Clinical Impression: Gastritis Qualifiers: Gastritis type: unspecified gastritis Chronicity: unspecified Gastritis bleeding: presence of bleeding unspecified Qualified Code(s): K29.70 - Gastritis , unspecified, without bleeding Anemia Qualifiers: Anemia type: iron deficiency Iron deficiency anemia type: chronic blood loss Qualified Code(s): D50.0 - Iron deficiency anemia secondary to blood loss ( chronic) - Discharge Information Referrals: Lona Campos ST[facility] COOKER [Primary Care Provider] - Forms: ED Department Discharge - My Orders Last 24 Hours: My Active Orders 12/31/18 13:07 Notify Provider Consults [RC] ASDIRECTED Consult to Physician [CONS] Stat - Assessment/Plan Last 24 Hours: My Active Orders 12/31/18 13:07 Notify Provider Consults [RC] ASDIRECTED Consult to Physician [CONS] Stat
[2018-12-31] MEDS ORDERED: Sodium Chloride 0.9% 1,000 ML IV STA (10:52)
[2018-12-31] MEDS ORDERED: Ondansetron 4 MG/2 ML SDV IVPUSH ONE (10:52)
[2018-12-31] MEDS ORDERED: Morphine 2 MG/ML Syringe IVPUSH ONE ×2 (10:52→14:17)
[2018-12-31] MEDS ORDERED: Iopamidol 755 MG/ML 500 ML Multipack Bottle IVPUSH ONE (13:00)
--- NOTE | 2018-12-31 13:02 | CT ---
INDICATION: Right upper quadrant abdominal pain, biliary colic TECHNIQUE: 3 mm axial imaging has been performed through the abdomen and pelvis after IV and oral contrast. Sagittal and coronal reconstructions have been obtained. Comparison: 12/23/2018 FINDINGS: Lung bases are free of infiltrate. The enhancement of the liver is within normal limits. The spleen, pancreas, bilateral adrenal glands are within normal limits. The kidneys demonstrate symmetric enhancement bilaterally. Some cortical scarring and cortical thinning of the right kidney is noted, likely chronic. There are small retroperitoneal lymph nodes without significant lymphadenopathy. The iliac luna chain and groin demonstrate no lymphadenopathy. Uterus is in the midline. The endometrium is approximately 1.6 centimeters which appears mildly thickened. No significant endometrial fluid is apparent. Bilateral ovaries are within normal limits. No significant free fluid noted. There appears to be wall thickening of the distal stomach with some thickening of the gastric folds. The duodenum appears to be of normal caliber. Gallbladder is fluid filled and unremarkable. Retained stool within the colon noted. Appendix is noted with oral contrast. IMPRESSION: 1. The wall of the distal stomach appears thickened. The gastric folds appear thickened. Findings are concerning for gastritis. This appears slightly increased from the recent comparison of 12/23/2018. Consider upper endoscopic assessment. 2. No findings to suggest bowel obstruction. No significant free fluid noted. 3. Some cortical scarring of the right kidney incidentally noted. 4. Endometrial stripe thickness is borderline at approximately 1.6 cm. This is favored to be of benign etiology. Dictated by Ramo Humphries MD @ 12/31/2018 1:01:18 PM Please note that all CT scans at this facility use dose modulation, iterative reconstruction, and/or weight-based dosing when appropriate to reduce radiation dose to as low as reasonably achievable. Dictated by: Ramo Humphries MD @ 12/31/2018 13:01:33 (Electronically Signed)
[2018-12-31] MEDS ORDERED: metroNIDAZOLE/Normal Saline 500 MG in Premix Bag 1 BAG IV ONE (13:14)
[2018-12-31] MEDS ORDERED: cefTRIAXone 1 GM in Premix Bag 1 BAG IV ONE (13:14)
--- NOTE | 2018-12-31 13:41 | PCM.CONS ---
H&P History of Present Illness - General Date of Service: 12/31/18 Admit Problem/Dx: Admission Diagnosis/Problem Admission Diagnosis/Problem Gastritis Source of Information: Patient History Limitations: Reports: No Limitations - History of Present Illness Initial Comments - Free Text/Narative: Patient is a 43-year-old female who I saw last week in consultation with the medicine team for abdominal pain. I reviewed her CT scan with our in-house radiologist and we both agreed that she appeared to have some thickening of the antrum of the stomach. The patient refused an EGD. She was treated empirically with a PPI and sucralfate. She has been taking this but the abdominal pain has been getting worse. She saw me in clinic this morning and was tender in the right upper quadrant with palpation. She thought it was a gallbladder however I stressed the importance of further workup. She came to the emergency room in order to get pain control as well as have laboratory and imaging performed. Her vital signs were stable. Her abdominal pain was improved on physical exam by the ER provider. CBC showed an elevated white count with a left shift. Her hemoglobin was 9.7. CT scan of the abdomen pelvis shows increased thickening of the stomach concerning for possible gastritis. An EGD was recommended by the reading radiologist as well. RUQ Pain Score (Numeric/FACES): 9 - Related Data Allergies/Adverse Reactions: Allergies Allergy/AdvReac Type Severity Reaction Status Date / Time ciprofloxacin [From Cipro] Allergy Nausea and Verified 12/31/18 10:54 Vomiting Penicillins Allergy Anaphylactic Verified 12/31/18 10:50 Shock Home Medications: Home Meds Calcium Carbonate [Calcium] 500 mg PO DAILY 12/23/18 [History] Levonorgestrel-Ethin Estradiol [Lutera-28 Tablet] 1 each PO DAILY 12/23/18 [ History] Lisinopril 20 mg PO DAILY 12/23/18 [History] MV,Ca,Min/Iron Fum/FA/Vit K [Multi For Her Tablet] 1 each PO DAILY 12/23/18 [ History] Magnesium 250 mg PO DAILY 12/23/18 [History] Ondansetron [Zofran] 4 mg PO Q8H PRN 12/23/18 [History] Pantoprazole [ProTONIX] 40 mg PO DAILY 12/23/18 [History] Potassium 99 mg PO DAILY 12/23/18 [History] rOPINIRole [Requip] 1 mg PO BEDTIME 12/23/18 [History] traMADol [Ultram] 50 mg PO Q8H 12/23/18 [History] Sucralfate [Carafate] 1 gm PO QIDACANDBED #40 cup 12/25/18 [Rx] Temazepam [Restoril] 15 mg PO BEDTIME PRN cap 12/25/18 [Rx] Past Medical History - Past Health History Medical/Surgical History: Denies Medical/Surgical History Cardiovascular History: Reports: Hypertension Respiratory History: Reports: Asthma Gastrointestinal History: Reports: None Genitourinary History: Reports: None [employer]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: Musculoskeletal History: Reports: None Neurological History: Reports: Concussion, Migraines Psychiatric History: Reports: None Endocrine/Metabolic History: Reports: None Hematologic History: Reports: None Immunologic History: Reports: None Oncologic (Cancer) History: Reports: None Dermatologic History: Reports: None - Infectious Disease History Infectious Disease History: Reports: None - Past Surgical History Head Surgeries/Procedures: Reports: None HEENT Surgical History: Reports: Oral Surgery Social & Family History - Family History Family Medical History: Noncontributory - Tobacco Use Smoking Status *Q: Current Every Day Smoker Years of Tobacco use: 30 Packs/Tins Daily: 0.5 - Caffeine Use Caffeine Use: Reports: Coffee - Recreational Drug Use Recreational Drug Use: No H&P Review of Systems - Review of Systems: Review Of Systems: ROS reveals no pertinent complaints other than HPI. Exam - Exam Exam: See Below - Vital Signs Vital Signs: Last Vital Signs Temp 36.2 C 12/31/18 10:50 Pulse 84 12/31/18 10:50 Resp 16 12/31/18 10:50 BP 119/55 L 12/31/18 10:50 Pulse Ox 98 12/31/18 10:50 Weight: 68.039 kg - Exam General: Alert, Oriented HEENT: Conjunctiva Clear, Mucosa Moist & Sylvia, Posterior Pharynx Clear, Other ( poor dentition ) Neck: Supple, Trachea Midline Lungs: Clear to Auscultation, Normal Respiratory Effort Cardiovascular: Regular Rate, Regular Rhythm GI/Abdominal Exam: Soft, Tender (upper abdominal tenderness with palpation ). No: Guarding, Rigid, Rebound Rectal (Female) Exam: Normal Exam Extremities: Normal Inspection - Patient Data Lab Results Last 24 hrs: Laboratory Results - last 24 hr 12/31/18 12/31/18 12/31/18 Range/Units 11:21 11:21 11:49 WBC 14.21 H (4.0-11.0) K/uL RBC 4.39 (4.30-5.90) M/uL Hgb 9.7 L (12.0-16.0) g/dL Hct 33.8 L (36.0-46.0) % MCV 77.0 L (80.0-98.0) fL MCH 22.1 L (27.0-32.0) pg MCHC 28.7 L (31.0-37.0) g/dL RDW Std Deviation 65.1 H (28.0-62.0) fl RDW Coeff of Don 24 H (11.0-15.0) % Plt Count 776 H (150-400) K/uL MPV 9.10 (7.40-12.00) fL Neut % (Auto) 87.8 H (48.0-80.0) % Lymph % (Auto) 7.5 L (16.0-40.0) % [place] % (Auto) 4.4 (0.0-15.0) % Eos % (Auto) 0.0 (0.0-7.0) % Baso % (Auto) 0.3 (0.0-1.5) % Neut # (Auto) 12.5 H (1.4-5.7) K/uL Lymph # (Auto) 1.1 (0.6-2.4) K/uL [place] # (Auto) 0.6 (0.0-0.8) K/uL Eos # (Auto) 0.0 (0.0-0.7) K/uL Baso # (Auto) 0.0 (0.0-0.1) K/uL Nucleated RBC % 0.0 /100WBC Nucleated RBCs # 0 K/uL Sodium 138 (136-145) mmol/L Potassium 3.5 (3.5-5.1) mmol/L Chloride 98 (98-107) mmol/L Carbon Dioxide 25.6 (21.0-32.0) mmol/L BUN 8 (7.0-18.0) mg/dL Creatinine 1.0 (0.6-1.0) mg/dL Est Cr Clr Drug Dosing 66.51 mL/min Estimated GFR (MDRD) 60.0 ml/min Glucose 85 (74-106) mg/dL Calcium 9.9 (8.5-10.1) mg/dL Total Bilirubin 0.4 (0.2-1.0) mg/dL AST 19 (15-37) IU/L ALT 19 (14-63) IU/L Alkaline Phosphatase 135 H (46-116) U/L Total Protein 8.2 (6.4-8.2) g/dL Albumin 3.6 (3.4-5.0) g/dL Globulin 4.6 H (2.6-4.0) g/dL Albumin/Globulin Ratio 0.8 L (0.9-1.6) Lipase 44 L (73-393) U/L Urine Color YELLOW Urine Appearance CLEAR Urine pH 6.5 (5.0-8.0) Ur Specific [place] 1.020 (1.001-1.035) Urine Protein NEGATIVE (NEGATIVE) mg/dL Urine Glucose (UA) NEGATIVE (NEGATIVE) mg/dL Urine Ketones 40 H (NEGATIVE) mg/dL Urine Occult Blood NEGATIVE (NEGATIVE) Urine Nitrite NEGATIVE (NEGATIVE) Urine Bilirubin SMALL H (NEGATIVE) Urine Ictotest POSITIVE Urine Urobilinogen 0.2 (<2.0) EU/dL Ur Leukocyte Esterase NEGATIVE (NEGATIVE) Result Diagrams: 12/31/18 11:21 12/31/18 11:21 Consult PN Assessment/Plan Procedures: Procedures ASSAY OF LIPASE (12/25/18) ASSAY OF TROPONIN QUANT (12/24/18) BLOOD CULTURE FOR BACTERIA (12/24/18) BLOOD TRANSFUSION SERVICE (12/24/18) BLOOD TYPING SEROLOGIC ABO (12/24/18) BLOOD TYPING SEROLOGIC RH(D) (12/24/18) COMPATIBILITY TEST ANTIGLOB (12/24/18) COMPATIBILITY TEST INCUBATE (12/24/18) COMPATIBILITY TEST SPIN (12/24/18) COMPLETE CBC W/AUTO DIFF WBC (12/25/18) COMPREHEN METABOLIC PANEL (12/25/18) CT ABD & PELV W/CONTRAST (12/24/18) ECHO EXAM OF ABDOMEN (12/24/18) ELECTROCARDIOGRAM TRACING (12/24/18) EMERGENCY DEPT VISIT (12/25/18) EMERGENCY DEPT VISIT (12/24/18) HELICOBACTER PYLORI ANTIBODY (12/24/18) HEMATOCRIT (12/24/18) HEMOGLOBIN (12/24/18) HYDRATE IV INFUSION ADD-ON (12/25/18) METABOLIC PANEL TOTAL CA (12/24/18) RBC ANTIBODY SCREEN (12/24/18) ROUTINE VENIPUNCTURE (12/25/18) THER/PROPH/DIAG INJ IV PUSH (12/25/18) TX/PRO/DX INJ NEW DRUG ADDON (12/25/18) TX/PRO/DX INJ SAME DRUG FINANCIAL ADVOCATE (12/24/18) URINALYSIS AUTO W/O SCOPE (12/24/18) URINE TEST (12/24/18) X-RAY EXAM SERIES ABDOMEN (12/25/18) (1) Gastritis SNOMED Code(s): 3415197 Code(s): K29.70 - GASTRITIS, UNSPECIFIED, WITHOUT BLEEDING Current Visit: Yes Qualifiers: Gastritis type: unspecified gastritis Chronicity: unspecified Gastritis bleeding: presence of bleeding unspecified Qualified Code(s): K29.70 - Gastritis, unspecified, without bleeding (2) Anemia SNOMED Code(s): 801009202 Code(s): D64.9 - ANEMIA, UNSPECIFIED Priority: High Current Visit: Yes Qualifiers: Anemia type: iron deficiency Iron deficiency anemia type: chronic blood loss Qualified Code(s): D50.0 - Iron deficiency anemia secondary to blood loss (chronic) Problem List Initiated/Reviewed/Updated: Yes Plan: The patient and I discussed the CT findings. She will need to be admitted to the medicine service for IV PPI therapy. She can be on a clear liquid diet for today. Pain control per the medicine service. Her elevated white count may be due to the inflammation going on in her stomach. I recommend empiric antibiotic coverage for both G positives and Gram negatives. She has tolerated cephalosporins in the past. I told her that she will need an EGD this time. She agrees to the procedure. We discussed the procedure, expected perioperative course, and risks including bleeding infection or perforation. She verbalized understanding and wishes to proceed. I discussed transferring to a bigger hospital with a GI service however the patient declined. She understands that if we find any thing beyond just simple gastritis and/or if she fails management here she may still need to be transferred and she agrees.
[2018-12-31] MEDS ORDERED: Acetaminophen 325 MG Tab PO PRN (13:45)
[2018-12-31] MEDS ORDERED: cefTRIAXone 1 GM in Premix Bag 1 BAG IV SCH (14:00)
[2018-12-31] MEDS ORDERED: Pantoprazole 40 MG in Sodium Chloride 0.9% 100 ML IVPUSH SCH (14:00)
--- NOTE | 2018-12-31 14:02 | PCM.HP ---
H&P History of Present Illness - General Date of Service: 12/31/18 Admit Problem/Dx: Admission Diagnosis/Problem Admission Diagnosis/Problem Gastritis Source of Information: Patient History Limitations: Reports: No Limitations - History of Present Illness Initial Comments - Free Text/Narative: 43F hx of HTN, chronic migraines and back pain that was recently admitted w/ microcytic anemia presented to the ER with chief complaint of abdominal pain. At the last visit, she was offered an EGD but the patient declined. She returned to outpatient surgeon clinic today complaining of epigastric abdominal pain, nausea and vomiting. She denies fever, diarrhea, bloody emesis or bloody stool. RUQ Pain Score (Numeric/FACES): 9 - Related Data Allergies/Adverse Reactions: Allergies Allergy/AdvReac Type Severity Reaction Status Date / Time ciprofloxacin [From Cipro] Allergy Nausea and Verified 12/31/18 10:54 Vomiting Penicillins Allergy Anaphylactic Verified 12/31/18 10:50 Shock Home Medications: Home Meds Calcium Carbonate [Calcium] 500 mg PO DAILY 12/23/18 [History] Levonorgestrel-Ethin Estradiol [Lutera-28 Tablet] 1 each PO DAILY 12/23/18 [ History] Lisinopril 20 mg PO DAILY 12/23/18 [History] MV,Ca,Min/Iron Fum/FA/Vit K [Multi For Her Tablet] 1 each PO DAILY 12/23/18 [ History] Magnesium 250 mg PO DAILY 12/23/18 [History] Ondansetron [Zofran] 4 mg PO Q8H PRN 12/23/18 [History] Pantoprazole [ProTONIX] 40 mg PO DAILY 12/23/18 [History] Potassium 99 mg PO DAILY 12/23/18 [History] rOPINIRole [Requip] 1 mg PO BEDTIME 12/23/18 [History] traMADol [Ultram] 50 mg PO Q8H 12/23/18 [History] Sucralfate [Carafate] 1 gm PO QIDACANDBED #40 cup 12/25/18 [Rx] Temazepam [Restoril] 15 mg PO BEDTIME PRN cap 12/25/18 [Rx] Past Medical History - Past Health History Medical/Surgical History: Denies Medical/Surgical History Cardiovascular History: Reports: Hypertension Respiratory History: Reports: Asthma Gastrointestinal History: Reports: None Genitourinary History: Reports: None CHIP DRIER History: Reports: Musculoskeletal History: Reports: None Neurological History: Reports: Concussion, Migraines Psychiatric History: Reports: None Endocrine/Metabolic History: Reports: None Hematologic History: Reports: None Immunologic History: Reports: None Oncologic (Cancer) History: Reports: None Dermatologic History: Reports: None - Infectious Disease History Infectious Disease History: Reports: None - Past Surgical History Head Surgeries/Procedures: Reports: None HEENT Surgical History: Reports: Oral Surgery Social & Family History - Family History Family Medical History: Noncontributory - Tobacco Use Smoking Status *Q: Current Every Day Smoker Years of Tobacco use: 30 Packs/Tins Daily: 0.5 - Caffeine Use Caffeine Use: Reports: Coffee - Recreational Drug Use Recreational Drug Use: No H&P Review of Systems - Review of Systems: Review Of Systems: See Below General: Reports: Decreased Appetite HEENT: Reports: No Symptoms Pulmonary: Reports: No Symptoms Cardiovascular: Reports: No Symptoms Gastrointestinal: Reports: Abdominal Pain, Decreased Appetite, Nausea, Vomiting , Other (see hpi) Genitourinary: Reports: No Symptoms Musculoskeletal: Reports: Back Pain Skin: Reports: No Symptoms Psychiatric: Reports: No Symptoms Neurological: Reports: No Symptoms Hematologic/Lymphatic: Reports: No Symptoms Immunologic: Reports: No Symptoms Exam - Exam Exam: See Below - Vital Signs Vital Signs: Last Vital Signs Temp 36.2 C 12/31/18 10:50 Pulse 84 12/31/18 10:50 Resp 16 12/31/18 10:50 BP 119/55 L 12/31/18 10:50 Pulse Ox 98 12/31/18 10:50 Weight: 68.039 kg - Exam General: Alert, Oriented, 4 HEENT: PERRLA, Hearing Intact, Mucosa Moist & [place], Nares Patent, Normal Nasal Septum, Posterior Pharynx Clear, Conjunctiva Clear, EOMI, EACs Clear, TMs Clear Neck: Supple, Trachea Midline, 2 Lungs: Clear to Auscultation, Normal Respiratory Effort Cardiovascular: Regular Rate, Regular Rhythm GI/Abdominal Exam: Normal Bowel Sounds, Other (epigastric tenderness) Back Exam: Normal Inspection, Full Range of Motion, NT Extremities: Normal Inspection, Normal Range of Motion, Non-Tender, No Pedal Edema, Normal Capillary Refill Peripheral Pulses: 2+: Dorsalis Pedis (L), Dorsalis Pedis (R) Skin: Warm, Dry, Intact Neurological: Cranial Nerves Intact, Reflexes Equal Bilateral DTR: 2+: Achilles (L), Achilles (R) Psychiatric: Alert, Normal Affect, Normal Mood - Patient Data Lab Results Last 24 hrs: Laboratory Results - last 24 hr 12/31/18 12/31/18 12/31/18 Range/Units 11:21 11:21 11:49 WBC 14.21 H (4.0-11.0) K/uL RBC 4.39 (4.30-5.90) M/uL Hgb 9.7 L (12.0-16.0) g/dL Hct 33.8 L (36.0-46.0) % MCV 77.0 L (80.0-98.0) fL MCH 22.1 L (27.0-32.0) pg MCHC 28.7 L (31.0-37.0) g/dL RDW Std Deviation 65.1 H (28.0-62.0) fl RDW Coeff of Don 24 H (11.0-15.0) % Plt Count 776 H (150-400) K/uL MPV 9.10 (7.40-12.00) fL Neut % (Auto) 87.8 H (48.0-80.0) % Lymph % (Auto) 7.5 L (16.0-40.0) % [place] % (Auto) 4.4 (0.0-15.0) % Eos % (Auto) 0.0 (0.0-7.0) % Baso % (Auto) 0.3 (0.0-1.5) % Neut # (Auto) 12.5 H (1.4-5.7) K/uL Lymph # (Auto) 1.1 (0.6-2.4) K/uL [place] # (Auto) 0.6 (0.0-0.8) K/uL Eos # (Auto) 0.0 (0.0-0.7) K/uL Baso # (Auto) 0.0 (0.0-0.1) K/uL Nucleated RBC % 0.0 /100WBC Nucleated RBCs # 0 K/uL Sodium 138 (136-145) mmol/L Potassium 3.5 (3.5-5.1) mmol/L Chloride 98 (98-107) mmol/L Carbon Dioxide 25.6 (21.0-32.0) mmol/L BUN 8 (7.0-18.0) mg/dL Creatinine 1.0 (0.6-1.0) mg/dL Est Cr Clr Drug Dosing 66.51 mL/min Estimated GFR (MDRD) 60.0 ml/min Glucose 85 (74-106) mg/dL Calcium 9.9 (8.5-10.1) mg/dL Total Bilirubin 0.4 (0.2-1.0) mg/dL AST 19 (15-37) IU/L ALT 19 (14-63) IU/L Alkaline Phosphatase 135 H (46-116) U/L Total Protein 8.2 (6.4-8.2) g/dL Albumin 3.6 (3.4-5.0) g/dL Globulin 4.6 H (2.6-4.0) g/dL Albumin/Globulin Ratio 0.8 L (0.9-1.6) Lipase 44 L (73-393) U/L Urine Color YELLOW Urine Appearance CLEAR Urine pH 6.5 (5.0-8.0) Ur Specific [place] 1.020 (1.001-1.035) Urine Protein NEGATIVE (NEGATIVE) mg/dL Urine Glucose (UA) NEGATIVE (NEGATIVE) mg/dL Urine Ketones 40 H (NEGATIVE) mg/dL Urine Occult Blood NEGATIVE (NEGATIVE) Urine Nitrite NEGATIVE (NEGATIVE) Urine Bilirubin SMALL H (NEGATIVE) Urine Ictotest POSITIVE Urine Urobilinogen 0.2 (<2.0) EU/dL Ur Leukocyte Esterase NEGATIVE (NEGATIVE) Result Diagrams: 12/31/18 11:21 12/31/18 11:21 Problem List Initiated/Reviewed/Updated: Yes Orders Last 24hrs: Active Orders 24 hr Category Date Time Status Admission Status [Patient Status] [ADT] Stat ADT 12/31/18 13:14 Active Antiembolic Devices [RC] PER UNIT ROUTINE Care 12/31/18 13:46 Ordered Notify Provider Consults [RC] ASDIRECTED Care 12/31/18 13:07 Active Oxygen Therapy [RC] PRN Care 12/31/18 13:45 Ordered Up ad Wanda [RC] ASDIRECTED Care 12/31/18 13:45 Ordered VTE/DVT Education [RC] PER UNIT ROUTINE Care 12/31/18 13:45 Ordered Vital Signs [RC] Q4H Care 12/31/18 13:45 Ordered Consult to Physician [CONS] Stat Cons 12/31/18 13:07 Active Clear Liquid Diet [DIET] Diet 12/31/18 Dinner Active NPO After Midnight [Nothing per Oral After Midnight Diet 12/31/18 Dinner Ordered Diet] [DIET] BASIC METABOLIC PANEL,BMP [CHEM] AM Lab 01/01/19 05:11 Ordered CBC W/O DIFF,HEMOGRAM [HEME] AM Lab 01/01/19 05:11 Ordered H PYLORI STOOL ANTIGEN [MREF] Stat Lab 12/31/18 13:49 Ordered HELICOBACTER PYLORI AB IGG [CHEM] Routine Lab 12/31/18 13:49 Ordered Acetaminophen [Tylenol] Med 12/31/18 13:45 Ordered 650 mg PO Q4H PRN Morphine Med 12/31/18 13:45 Ordered 2 mg IVPUSH Q2H PRN Ondansetron [Zofran] Med 12/31/18 13:45 Ordered 4 mg IVPUSH Q4H PRN Pantoprazole [ProTONIX IV] 40 mg Med 12/31/18 14:00 Ordered Sodium Chloride 0.9% [Normal Saline] 100 ml IVPUSH Q12H Sodium Chloride 0.9% @ 75 MLS/HR(1,000ml) Med 12/31/18 14:00 Ordered Sodium Chloride 0.9% [Normal Saline] 1,000 ml IV ASDIRECTED Sucralfate [Carafate] Med 12/31/18 17:00 Ordered 1 gm PO TIDAC cefTRIAXone [Rocephin in Dextrose,Iso-Osm 1 GM/50 ML] 1 Med 12/31/18 14:00 Ordered gm Premix Bag 1 bag IV Q24H metroNIDAZOLE/Normal Saline [Flagyl 500 MG in NS 100 ML Med 12/31/18 13:14 Active ] 500 mg Premix Bag 1 bag IV ONETIME metroNIDAZOLE/Normal Saline [Flagyl 500 MG in NS 100 ML Med 12/31/18 14:00 Ordered ] 500 mg Premix Bag 1 bag IV Q8H Sequential Compression Device [OM.PC] Per Unit Routine Oth 12/31/18 13:46 Ordered Resuscitation Status Routine Resus Stat 12/31/18 13:45 Ordered Medication Orders Acetaminophen (Tylenol) 650 mg PO Q4H PRN PRN Reason: Pain (Mild 1-3)/fever Metronidazole 500 mg/ Premix 100 mls @ 100 mls/hr IV ONETIME ONE Stop: 12/31/18 14:13 Ceftriaxone Sodium/Dextrose 1 (gm/ Premix) 50 mls @ 100 mls/hr IV Q24H JONATHAN Metronidazole 500 mg/ Premix 100 mls @ 100 mls/hr IV Q8H JONATHAN Sodium Chloride (Normal Saline) 1,000 mls @ 75 mls/hr IV ASDIRECTED JONATHAN Pantoprazole Sodium 40 mg/ (Sodium Chloride) 100 mls @ 10 mls/hr IVPUSH Q12H JONATHAN Morphine Sulfate (Morphine) 2 mg IVPUSH Q2H PRN PRN Reason: Pain (severe 7-10) Stop: 01/01/19 13:46 Ondansetron HCl (Zofran) 4 mg IVPUSH Q4H PRN PRN Reason: Nausea Sucralfate (Carafate) 1 gm PO TIDAC JONATHAN Assessment/Plan Comment:: Assessment: #1. Gastritis #2. Leukocytosis #3. Microcytic anemia #4. History of HTN, Chronic migraines and back pain Plan: #1. Refer to observation. Vitals per floor. SCD for DVT prophylaxis. DNR/DNI. Discussed at length code status, but patient is adamant about this decision, was in room and agreed. #2. IV Flagyl, Rocephin #3. IV protonix #4. Sucralfate #5. IV morphine PRN 2mg q2h #6. Clear liquid diet, then NPO at midnight #7. EGD tomorrow AM #8. Test for H. Pylori #9. F/u on surgeon rec's. Patient does have lengthy hx of NSAID abuse for her chronic pain but she tells me that she hasnt taken any ibuprofen in the last 3 weeks.
[2018-12-31] MEDS: metroNIDAZOLE/Normal Saline 500 MG in Premix Bag 1 BAG IV SCH ×2 (14:30→22:54)
[2018-12-31] MEDS ORDERED: Pantoprazole 40 MG Vial IVPUSH SCH (15:00)
[2018-12-31] MEDS ORDERED: Pantoprazole 40 MG in Sodium Chloride 0.9% 10 ML IV SCH (15:00)
[2018-12-31] MEDS: Sodium Chloride 0.9% 1,000 ML IV SCH (15:00)
[2018-12-31] MEDS: Pantoprazole 40 MG in Sodium Chloride 0.9% 10 ML IVPUSH SCH (15:23)
[2018-12-31] MEDS: Ondansetron 4 MG/2 ML SDV IVPUSH PRN (16:23)
[2018-12-31] MEDS: Sucralfate Suspension 1 GM/10 ML Cup PO SCH (16:26)
[2018-12-31] MEDS: Morphine 10 MG/ML Syringe IVPUSH PRN ×3 (16:26→20:40)
--- NOTE | 2018-12-31 18:17 | PCM.SN ---
- Free Text/Narrative Note: The patient has a lip ring and tongue ring in place. I explained the need to remove these in order to perform an EGD procedure safely. The patient states that they are permanent and will not come out. I explained them the risk of damage to her tongue and/or the surrounding teeth due to the metal being in place. I explained the risk of cautery injury as well. We discussed the issue of blood products. She is very hesitant to undergo any excessive procedures. I explained that should we get into significant bleeding this could require blood products. After long discussion the patient verbalized understanding and agrees to blood products in a life-threatening situation.
--- NOTE | 2018-12-31 19:01 | PCM.PREANE ---
Preanesthetic Assessment - Anesthesia/Transfusion/Family Hx Anesthesia History: No Prior Anesthesia Transfusion History: Prior Transfusion Without Reaction - Review of Systems General: No Symptoms Pulmonary: No Symptoms Cardiovascular: No Symptoms Gastrointestinal: Abdominal Pain Neurological: No Symptoms Other: Reports: None - Physical Assessment NPO Status Date: 12/31/18 NPO Status Time: 23:55 O2 Sat by Pulse Oximetry: 100 Respiratory Rate: 18 Vital Signs: Last Vital Signs Temp 36.7 C 12/31/18 16:00 Pulse 64 12/31/18 16:00 Resp 18 12/31/18 16:00 BP 146/76 H 12/31/18 16:00 Pulse Ox 100 12/31/18 16:00 Height: 5 ft 6 in Weight: 67.585 kg ASA Class: 2 Mental Status: Alert & Oriented x3 Airway Class: Mallampati = 2 Dentition: Reports: Missing Tooth/Teeth (multiple missing teeth) Thyro-Mental Finger Breadths: 3 Mouth Opening Finger Breadths: 3 ROM/Head Extension: Full Lungs: Clear to Auscultation, Normal Respiratory Effort Cardiovascular: Regular Rate, Regular Rhythm - Lab Values: Laboratory Last Values WBC 14.21 K/uL (4.0-11.0) H 12/31/18 11:21 RBC 4.39 M/uL (4.30-5.90) 12/31/18 11:21 Hgb 9.7 g/dL (12.0-16.0) L 12/31/18 11:21 Hct 33.8 % (36.0-46.0) L 12/31/18 11:21 MCV 77.0 fL (80.0-98.0) L 12/31/18 11:21 MCH 22.1 pg (27.0-32.0) L 12/31/18 11:21 MCHC 28.7 g/dL (31.0-37.0) L 12/31/18 11:21 RDW Std Deviation 65.1 fl (28.0-62.0) H 12/31/18 11:21 RDW Coeff of Don 24 % (11.0-15.0) H 12/31/18 11:21 Plt Count 776 K/uL (150-400) H 12/31/18 11:21 MPV 9.10 fL (7.40-12.00) 12/31/18 11:21 Neut % (Auto) 87.8 % (48.0-80.0) H 12/31/18 11:21 Lymph % (Auto) 7.5 % (16.0-40.0) L 12/31/18 11:21 [place] % (Auto) 4.4 % (0.0-15.0) 12/31/18 11:21 Eos % (Auto) 0.0 % (0.0-7.0) 12/31/18 11:21 Baso % (Auto) 0.3 % (0.0-1.5) 12/31/18 11:21 Neut # (Auto) 12.5 K/uL (1.4-5.7) H 12/31/18 11:21 Lymph # (Auto) 1.1 K/uL (0.6-2.4) 12/31/18 11:21 [place] # (Auto) 0.6 K/uL (0.0-0.8) 12/31/18 11:21 Eos # (Auto) 0.0 K/uL (0.0-0.7) 12/31/18 11:21 Baso # (Auto) 0.0 K/uL (0.0-0.1) 12/31/18 11:21 Nucleated RBC % 0.0 /100WBC 12/31/18 11:21 Nucleated RBCs # 0 K/uL 12/31/18 11:21 Sodium 138 mmol/L (136-145) 12/31/18 11:21 Potassium 3.5 mmol/L (3.5-5.1) 12/31/18 11:21 Chloride 98 mmol/L (98-107) 12/31/18 11:21 Carbon Dioxide 25.6 mmol/L (21.0-32.0) 12/31/18 11:21 BUN 8 mg/dL (7.0-18.0) 12/31/18 11:21 Creatinine 1.0 mg/dL (0.6-1.0) 12/31/18 11:21 Est Cr Clr Drug Dosing 66.51 mL/min 12/31/18 11:21 Estimated GFR (MDRD) 60.0 ml/min 12/31/18 11:21 Glucose 85 mg/dL (74-106) 12/31/18 11:21 Calcium 9.9 mg/dL (8.5-10.1) 12/31/18 11:21 Total Bilirubin 0.4 mg/dL (0.2-1.0) 12/31/18 11:21 AST 19 IU/L (15-37) 12/31/18 11:21 ALT 19 IU/L (14-63) 12/31/18 11:21 Alkaline Phosphatase 135 U/L (46-116) H 12/31/18 11:21 Total Protein 8.2 g/dL (6.4-8.2) 12/31/18 11:21 Albumin 3.6 g/dL (3.4-5.0) 12/31/18 11:21 Globulin 4.6 g/dL (2.6-4.0) H 12/31/18 11:21 Albumin/Globulin Ratio 0.8 (0.9-1.6) L 12/31/18 11:21 Lipase 44 U/L (73-393) L 12/31/18 11:21 Urine Color YELLOW 12/31/18 11:49 Urine Appearance CLEAR 12/31/18 11:49 Urine pH 6.5 (5.0-8.0) 12/31/18 11:49 Ur Specific [place] 1.020 (1.001-1.035) 12/31/18 11:49 Urine Protein NEGATIVE mg/dL (NEGATIVE) 12/31/18 11:49 Urine Glucose (UA) NEGATIVE mg/dL (NEGATIVE) 12/31/18 11:49 Urine Ketones 40 mg/dL (NEGATIVE) H 12/31/18 11:49 Urine Occult Blood NEGATIVE (NEGATIVE) 12/31/18 11:49 Urine Nitrite NEGATIVE (NEGATIVE) 12/31/18 11:49 Urine Bilirubin SMALL (NEGATIVE) H 12/31/18 11:49 Urine Ictotest POSITIVE 12/31/18 11:49 Urine Urobilinogen 0.2 EU/dL (<2.0) 12/31/18 11:49 Ur Leukocyte Esterase NEGATIVE (NEGATIVE) 12/31/18 11:49 Urine HCG, Qual NEGATIVE (NEGATIVE) 12/31/18 11:49 H. pylori IgG Antibody NEGATIVE (NEG) 12/31/18 11:21 - Allergies Allergies/Adverse Reactions: Allergies Allergy/AdvReac Type Severity Reaction Status Date / Time ciprofloxacin [From Cipro] Allergy Nausea and Verified 12/31/18 10:54 Vomiting Penicillins Allergy Anaphylactic Verified 12/31/18 10:50 Shock - Anesthesia Plan Free Text/Narrative:: Patient seen in room 207 to be evaluate for anesthesia sedation for scheduled EGD tomorrow 12/31/18. Discussed with patient at great length about receiving monitored anesthesia care. Talked about her DNR status and how this is typically handled. She was very hesitant about receiving any intervention should she have any negative impact on vital signs, respiratory status, or otherwise cardiopulmonary event during the sedation period for her procedure. I thoroughly explained that we generally withdraw the DNR status during the procedure and that we would reinstate the DNR status after the recovery period. I encouraged her to think about it overnight and that we would revisit the details tomorrow prior to the procedure. - Acknowledgements Anesthesia Type Planned: MAC Pt an Appropriate Candidate for the Planned Anesthesia: Yes Alternatives and Risks of Anesthesia Discussed w Pt/Guardian: Yes Pt/Guardian Understands and Agrees with Anesthesia Plan: Yes PreAnesthesia Questionnaire - Past Health History Medical/Surgical History: Denies Medical/Surgical History Cardiovascular History: Reports: Hypertension Respiratory History: Reports: Asthma, Other (See Below) (Current smoker) Gastrointestinal History: Reports: GERD Genitourinary History: Reports: None [employer] History: Reports: Musculoskeletal History: Reports: None Neurological History: Reports: Concussion, Migraines Other Neuro History: Restless Leg Syndrome Psychiatric History: Reports: None Endocrine/Metabolic History: Reports: None Hematologic History: Reports: None Immunologic History: Reports: None Oncologic (Cancer) History: Reports: None Dermatologic History: Reports: None - Infectious Disease History Infectious Disease History: Reports: None - Past Surgical History Head Surgeries/Procedures: Reports: None HEENT Surgical History: Reports: Oral Surgery - SUBSTANCE USE Smoking Status *Q: Current Every Day Smoker (1/2 pack day x 30 yrs) Tobacco Use Within Last Twelve Months: Cigarettes Recreational Drug Use History: No - HOME MEDS Home Medications: Home Meds Calcium Carbonate [Calcium] 500 mg PO DAILY 12/23/18 [History] Levonorgestrel-Ethin Estradiol [Lutera-28 Tablet] 1 each PO DAILY 12/23/18 [ History] Lisinopril 20 mg PO DAILY 12/23/18 [History] MV,Ca,Min/Iron Fum/FA/Vit K [Multi For Her Tablet] 1 each PO DAILY 12/23/18 [ History] Magnesium 250 mg PO DAILY 12/23/18 [History] Ondansetron [Zofran] 4 mg PO Q8H PRN 12/23/18 [History] Pantoprazole [ProTONIX] 40 mg PO DAILY 12/23/18 [History] Potassium 99 mg PO DAILY 12/23/18 [History] rOPINIRole [Requip] 1 mg PO BEDTIME 12/23/18 [History] traMADol [Ultram] 50 mg PO Q8H 12/23/18 [History] Sucralfate [Carafate] 1 gm PO QIDACANDBED #40 cup 12/25/18 [Rx] Temazepam [Restoril] 15 mg PO BEDTIME PRN cap 12/25/18 [Rx] - CURRENT (IN HOUSE) MEDS Current Meds: Current Medications Acetaminophen (Tylenol) 650 mg PO Q4H PRN PRN Reason: Pain (Mild 1-3)/fever Metronidazole 500 mg/ Premix 100 mls @ 100 mls/hr IV Q8H [facility] Last Admin: 12/31/18 14:30 Dose: Not Given Sodium Chloride (Normal Saline) 1,000 mls @ 75 mls/hr IV ASDIRECTED [facility] Last Admin: 12/31/18 15:00 Dose: 75 mls/hr Pantoprazole Sodium 40 mg/ (Sodium Chloride) 10 mls @ 200 mls/hr IVPUSH Q12H [facility] Last Admin: 12/31/18 15:23 Dose: 200 mls/hr Morphine Sulfate (Morphine) 2 mg IVPUSH Q2H PRN PRN Reason: Pain (severe 7-10) Stop: 01/01/19 13:46 Last Admin: 12/31/18 18:38 Dose: 2 mg Ondansetron HCl (Zofran) 4 mg IVPUSH Q4H PRN PRN Reason: Nausea Last Admin: 12/31/18 16:23 Dose: 4 mg Sucralfate (Carafate) 1 gm PO TIDAC [facility] Last Admin: 12/31/18 16:26 Dose: 1 gm Discontinued Medications Sodium Chloride (Normal Saline) 1,000 mls @ 999 mls/hr IV NOW STA Stop: 12/31/18 11:52 Last Admin: 12/31/18 11:19 Dose: 999 mls/hr Ceftriaxone Sodium/Dextrose 1 (gm/ Premix) 50 mls @ 100 mls/hr IV ONETIME ONE Stop: 12/31/18 13:43 Last Admin: 12/31/18 14:30 Dose: Not Given Metronidazole 500 mg/ Premix 100 mls @ 100 mls/hr IV ONETIME ONE Stop: 12/31/18 14:13 Last Admin: 12/31/18 14:00 Dose: 100 mls/hr Ceftriaxone Sodium/Dextrose 1 (gm/ Premix) 50 mls @ 100 mls/hr IV Q24H JONATHAN Last Admin: 12/31/18 14:30 Dose: Not Given Pantoprazole Sodium 40 mg/ (Sodium Chloride) 100 mls @ 10 mls/hr IVPUSH Q12H JONATHAN Last Admin: 12/31/18 14:30 Dose: Not Given Pantoprazole Sodium 40 mg/ (Sodium Chloride) 10 mls @ 200 mls/hr IV Q12H JONATHAN Iopamidol (Isovue Multipack-370 (76%)) 85 ml IVPUSH ONETIME ONE Stop: 12/31/18 13:01 Last Admin: 12/31/18 13:00 Dose: 85 ml Morphine Sulfate (Morphine) 2 mg IVPUSH ONETIME ONE Stop: 12/31/18 10:53 Last Admin: 12/31/18 11:21 Dose: 2 mg Morphine Sulfate (Morphine) 2 mg IVPUSH STAT ONE Stop: 12/31/18 14:18 Last Admin: 12/31/18 14:21 Dose: 2 mg Ondansetron HCl (Zofran) 4 mg IVPUSH ONETIME ONE Stop: 12/31/18 10:53 Last Admin: 12/31/18 11:20 Dose: 4 mg
[2018-12-31] MEDS: Morphine 2 MG/ML Syringe IV PRN (22:54)
[2019-01-01] MEDS: Ondansetron 4 MG/2 ML SDV IVPUSH PRN ×3 (01:38→20:20)
[2019-01-01] MEDS: Morphine 2 MG/ML Syringe IV PRN ×8 (01:38→23:32)
[2019-01-01] MEDS: Pantoprazole 40 MG in Sodium Chloride 0.9% 10 ML IVPUSH SCH ×2 (03:34→16:00)
[2019-01-01] MEDS: Sodium Chloride 0.9% 1,000 ML IV SCH ×2 (04:33→14:00)
[2019-01-01] MEDS: metroNIDAZOLE/Normal Saline 500 MG in Premix Bag 1 BAG IV SCH ×3 (06:18→21:44)
[2019-01-01 06:26] LABS: CHLORIDE,CL 106 mmol/L (98-107); SODIUM,NA 141 mmol/L (136-145)
[2019-01-01] MEDS: Sucralfate Suspension 1 GM/10 ML Cup PO SCH ×3 (06:35→16:00)
--- NOTE | 2019-01-01 11:19 | PCM.SN ---
- Free Text/Narrative Note: Anesthesiologist pre op note Pt gianni interviewed about upcoming EGD under [place]. Pt is DNR and was reluctant to change her status dueing this procedure. After a discussion with the SALES [employer]NAGER [place] yesterday, they thought about it overnight anf have agreed to change status to full code status allowing medications, defibirlation and CPR if needed in the perioperative period. They would like to return to DNR status 24 hours after the endoscopic procedure. Risks and benefits explained, consent obtained from pt and witnessed by .
[2019-01-01] MEDS: Nicotine 14 MG/24 Hr Patch TRDERM SCH (12:33)
[2019-01-01] MEDS ORDERED: Propofol 200 MG/20 ML SDV ONE (13:02)
--- NOTE | 2019-01-01 13:51 | PCM.POSTAN ---
POST ANESTHESIA ASSESSMENT - MENTAL STATUS Mental Status: Alert, Oriented - VITAL SIGNS Pulse Rate: 68 SaO2: 99 Resp Rate: 14 Blood Pressure: 148/59 Temperature: 37.8 C - RESPIRATORY Respiratory Status: Respiratory Rate WNL, Airway Patent, O2 Saturation Stable - CARDIOVASCULAR CV Status: Pulse Rate WNL, Blood Pressure Stable - GASTROINTESTINAL GI Status: No Symptoms - POST OP HYDRATION Hydration Status: Adequate & Stable - OBSERVATIONS Free Text/Narrative:: No immediate anesthesia complications noted at this time.
--- NOTE | 2019-01-01 14:23 | PCM.PN ---
- General Info Date of Service: 01/01/19 - Review of Systems Systems Review Comment:: patient reporting abdominal pain - Patient Data Vitals - Most Recent: Last Vital Signs Temp 37.6 C 01/01/19 14:00 Pulse 64 01/01/19 14:00 Resp 16 01/01/19 14:00 BP 197/75 H 01/01/19 14:00 Pulse Ox 99 01/01/19 14:00 Weight - Most Recent: 67.585 kg I&O - Last 24 Hours: Intake & Output 12/31/18 01/01/19 01/01/19 22:59 06:59 14:59 Intake Total 1055 1764 100 Output Total 200 1150 Balance 855 614 100 Lab Results Last 24 Hours: Laboratory Results - last 24 hr 12/31/18 01/01/19 01/01/19 Range/Units 11:49 05:50 05:50 WBC 8.02 (4.0-11.0) K/uL RBC 3.53 L (4.30-5.90) M/uL Hgb 7.9 L (12.0-16.0) g/dL Hct 27.3 L (36.0-46.0) % MCV 77.3 L (80.0-98.0) fL MCH 22.4 L (27.0-32.0) pg MCHC 28.9 L (31.0-37.0) g/dL RDW Std Deviation 65.8 H (28.0-62.0) fl RDW Coeff of Don 24 H (11.0-15.0) % Plt Count 524 H (150-400) K/uL MPV 8.90 (7.40-12.00) fL Nucleated RBC % 0.0 /100WBC Nucleated RBCs # 0 K/uL Sodium 141 (136-145) mmol/L Potassium 3.7 (3.5-5.1) mmol/L Chloride 106 (98-107) mmol/L Carbon Dioxide 24.4 (21.0-32.0) mmol/L BUN 5 L (7.0-18.0) mg/dL Creatinine 0.7 (0.6-1.0) mg/dL Est Cr Clr Drug Dosing 95.01 mL/min Estimated GFR (MDRD) > 60.0 ml/min Glucose 81 (74-106) mg/dL Calcium 8.3 L (8.5-10.1) mg/dL Urine HCG, Qual NEGATIVE (NEGATIVE) Med Orders - Current: Current Medications Acetaminophen (Tylenol) 650 mg PO Q4H PRN PRN Reason: Pain (Mild 1-3)/fever Metronidazole 500 mg/ Premix 100 mls @ 100 mls/hr IV Q8H [facility] Last Admin: 01/01/19 14:00 Dose: 100 mls/hr Sodium Chloride (Normal Saline) 1,000 mls @ 75 mls/hr IV ASDIRECTED [facility] Last Admin: 01/01/19 14:00 Dose: 75 mls/hr Pantoprazole Sodium 40 mg/ (Sodium Chloride) 10 mls @ 200 mls/hr IVPUSH Q12H [facility] Last Admin: 01/01/19 03:34 Dose: 200 mls/hr Morphine Sulfate (Morphine) 2 mg IV Q2H PRN PRN Reason: Pain Last Admin: 01/01/19 12:52 Dose: 2 mg Nicotine (Habitrol) 14 mg TRDERM DAILY [facility] Last Admin: 01/01/19 12:33 Dose: 14 mg Ondansetron HCl (Zofran) 4 mg IVPUSH Q4H PRN PRN Reason: Nausea Last Admin: 01/01/19 10:58 Dose: 4 mg Sucralfate (Carafate) 1 gm PO TIDAC [facility] Last Admin: 01/01/19 11:01 Dose: Not Given Discontinued Medications Sodium Chloride (Normal Saline) 1,000 mls @ 999 mls/hr IV NOW STA Stop: 12/31/18 11:52 Last Admin: 12/31/18 11:19 Dose: 999 mls/hr Ceftriaxone Sodium/Dextrose 1 (gm/ Premix) 50 mls @ 100 mls/hr IV ONETIME ONE Stop: 12/31/18 13:43 Last Admin: 12/31/18 14:30 Dose: Not Given Metronidazole 500 mg/ Premix 100 mls @ 100 mls/hr IV ONETIME ONE Stop: 12/31/18 14:13 Last Admin: 12/31/18 14:00 Dose: 100 mls/hr Ceftriaxone Sodium/Dextrose 1 (gm/ Premix) 50 mls @ 100 mls/hr IV Q24H [facility] Last Admin: 12/31/18 14:30 Dose: Not Given Pantoprazole Sodium 40 mg/ (Sodium Chloride) 100 mls @ 10 mls/hr IVPUSH Q12H [facility] Last Admin: 12/31/18 14:30 Dose: Not Given Pantoprazole Sodium 40 mg/ (Sodium Chloride) 10 mls @ 200 mls/hr IV Q12H [facility] Iopamidol (Isovue Multipack-370 (76%)) 85 ml IVPUSH ONETIME ONE Stop: 12/31/18 13:01 Last Admin: 12/31/18 13:00 Dose: 85 ml Morphine Sulfate (Morphine) 2 mg IVPUSH ONETIME ONE Stop: 12/31/18 10:53 Last Admin: 12/31/18 11:21 Dose: 2 mg Morphine Sulfate (Morphine) 2 mg IVPUSH Q2H PRN PRN Reason: Pain (severe 7-10) Stop: 01/01/19 13:46 Last Admin: 12/31/18 20:40 Dose: 2 mg Morphine Sulfate (Morphine) 2 mg IVPUSH STAT ONE Stop: 12/31/18 14:18 Last Admin: 12/31/18 14:21 Dose: 2 mg Ondansetron HCl (Zofran) 4 mg IVPUSH ONETIME ONE Stop: 12/31/18 10:53 Last Admin: 12/31/18 11:20 Dose: 4 mg Propofol (Diprivan 20 Ml) Confirm Administered Dose 400 mg .ROUTE .STK-MED ONE Stop: 01/01/19 13:03 - Exam General: Alert, Oriented Neck: Supple Lungs: Clear to Auscultation, Normal Respiratory Effort Cardiovascular: Regular Rate, Regular Rhythm GI/Abdominal Exam: Soft, Non-Tender, No Distention Extremities: Non-Tender, No Pedal Edema - Problem List Review Problem List Initiated/Reviewed/Updated: Yes - My Orders Last 24 Hours: My Active Orders 01/02/19 05:11 BASIC METABOLIC PANEL,BMP [CHEM] AM CBC WITH AUTO DIFF [HEME] AM 01/03/19 05:11 BASIC METABOLIC PANEL,BMP [CHEM] AM CBC WITH AUTO DIFF [HEME] AM - Plan Plan:: 43 yo female admitted for abdominal pain. EGD today was questionable for large mass with adherrant clot. biopsies were obtained. Will continue pain control, and PPI and monitor for bleeding.
--- NOTE | 2019-01-01 14:28 | PCM.SN ---
- Free Text/Narrative Note: Mela was taken to the OR for a diagnostic EGD. She had a small superficial ulcer in the first portion of the duodenum. She had a large antral ulcer that encompassed 1/3 of the lumen of the antrum. It had an umbilicated area with an adherent clot. I attempted to biopsy the areas around that, but could not get deep bites due to the thickened nature of the tissue. Biopsies were taken around the ulcer site. I am concerned about malignancy. She is adamant that she would not want to be transferred or receive care if this is cancer. The plan is to treat her pain with oral narcotics, give BID PPI therapy as well as carafate , and ensure that her hemoglobin stays stable over the next day. If her pain is controlled and hemoglobin stable she can discharge in the morning.
--- NOTE | 2019-01-01 14:29 | PCM.OPNOTE ---
- General Post-Op/Procedure Note Date of Surgery/Procedure: 01/01/19 Operative Procedure(s): Diagnostic EGD with biopsy Findings: She had a small superficial ulcer in the first portion of the duodenum. She had a large antral ulcer that encompassed 1/3 of the lumen of the antrum. It had an umbilicated area with an adherent clot. I attempted to biopsy the areas around that, but could not get deep bites due to the thickened nature of the tissue. Biopsies were taken around the ulcer site. I am concerned about malignancy Pre Op Diagnosis: Gastric thickening Post-Op Diagnosis: Antral ulcer, duodenal ulcer, hiatal hernia Anesthesia Technique: [facility] [place] Primary Surgeon: Mariann Wilcox Condition: Stable Free Text/Narrative:: Intake & Output 12/31/18 01/01/19 01/01/19 22:59 06:59 14:59 Intake Total 1055 1764 200 Output Total 200 1150 Balance 855 614 200
--- NOTE | 2019-01-01 15:11 | OR ---
SURGEON: MARIANN WILCOX MD DATE OF PROCEDURE: 01/01/2019 PREOPERATIVE DIAGNOSIS: Gastric wall thickening. POSTOPERATIVE DIAGNOSIS: 1. Hiatal hernia. 2. Large gastric ulcer. 3. Duodenal ulcer. PROCEDURE PERFORMED: Diagnostic esophagogastroduodenoscopy with biopsies. PRIMARY SURGEON: Mariann Wilcox MD. ANESTHESIA: MAC. INSTRUMENT USED: Olympus endoscope. EXTENT OF EXAM: To the second portion of duodenum. PREPARATION: Good. LIMITATIONS: None. INDICATIONS FOR EXAMINATION: The patient is a 43-year-old female, who presents with abdominal pain. A CT scan showed thickening of the antrum of the stomach. The patient is also anemic. A decision was made to take the patient to the operating room to perform a diagnostic EGD. I explained the procedure, expected perioperative course, and risks including bleeding, infection, or damage to surrounding structures including perforation. The patient verbalized understanding and wishes to proceed. PROCEDURE IN DETAIL: The patient was brought into the endoscopy suite and placed in a beach chair position. A time-out was completed verifying the patient's name, age, date of , allergies, and procedure to be performed. Monitored anesthesia care was induced and continuous oxygen was provided via nasal cannula throughout the procedure. A bite block was placed in the patient's mouth. After adequate sedation was achieved, a well-lubricated endoscope was placed in the patient's mouth and advanced under direct visualization to the second portion of duodenum. This appeared normal and a photograph was taken. The scope was then fully withdrawn while examining the color, texture, anatomy, and integrity of the mucosa of the upper GI tract. The patient had a small superficial ulcer in the first portion of duodenum. A photograph was taken. The scope was then brought into the stomach and a photograph was taken of the pylorus as well as the GE junction. The patient had a large irregular appearing ulcer in the antrum and encompassed about one-third of the lumen. At the corner of this ulcer, was an umbilicated area covered in an adherent clot with stigmata of recent bleeding. Photographs of this were taken. I attempted to biopsy the ulcer, however, it was thickened, and I was unable to get any adequate bite. Superficial bites were taken and sent to Pathology, labeled as ulcer. I did take a biopsy along the ulcer and gastric mucosal edge and sent that with the superficial biopsies. A biopsy was then taken near the gastric pylorus as well as in the body and fundus of the stomach. The scope was then brought into the distal esophagus. A photograph was taken of the hiatal hernia sac. The distal esophageal mucosa appeared free of gross inflammation. The remainder of the esophageal mucosa was free of pathology. The scope was then removed and the procedure terminated. The patient was transferred to the PACU in stable condition. ENDOSCOPIC DIAGNOSES: 1. Hiatal hernia. 2. Large gastric ulcer. 3. Duodenal ulcer. RECOMMENDATIONS: I discussed the findings with the patient and her . We watched the patient overnight in the hospital to ensure no further bleeding episodes. She can have a clear liquid diet. We will treat with b.i.d. PPI therapy and Carafate. We will await biopsy results to determine the next steps in treatment. IZABELLA BERNABE /[id number]
[2019-01-01] MEDS: oxyCODONE 5 MG Tab PO PRN ×2 (17:41→21:43)
[2019-01-01] MEDS ORDERED: Acetaminophen 325 MG Tab PO PRN (18:50)
[2019-01-02] MEDS: oxyCODONE 5 MG Tab PO PRN ×3 (03:14→11:25)
[2019-01-02] MEDS: Pantoprazole 40 MG in Sodium Chloride 0.9% 10 ML IVPUSH SCH (03:14)
[2019-01-02] MEDS: Sodium Chloride 0.9% 1,000 ML IV SCH (04:13)
[2019-01-02 06:27] LABS: CHLORIDE,CL 103 mmol/L (98-107); SODIUM,NA 140 mmol/L (136-145)
[2019-01-02] MEDS: Sucralfate Suspension 1 GM/10 ML Cup PO SCH ×2 (06:30→11:25)
[2019-01-02] MEDS: metroNIDAZOLE/Normal Saline 500 MG in Premix Bag 1 BAG IV SCH (06:30)
--- NOTE | 2019-01-02 08:46 | PCM.CONSN ---
- General Info Date of Service: 01/02/19 Subjective Update: Pain is better controlled with the oxycodone. She is eating without difficulty. Vitals stable. No acute events overnight. Hemoglobin is stable this morning. Functional Status: Reports: Pain Controlled, Tolerating Diet, Ambulating, Urinating - Review of Systems General: Reports: No Symptoms Gastrointestinal: Reports: No Symptoms - Patient Data Vitals - Most Recent: Last Vital Signs Temp 37.4 C 01/02/19 07:25 Pulse 68 01/02/19 04:00 Resp 16 01/02/19 07:25 BP 167/72 H 01/02/19 07:25 Pulse Ox 98 01/02/19 07:25 Weight - Most Recent: 67.585 kg I&O - Last 24 Hours: Intake & Output 01/01/19 01/02/19 01/02/19 22:59 06:59 14:59 Intake Total 198 1214 500 Output Total 1750 800 Balance 198 -536 -300 Lab Results Last 24 Hours: Laboratory Results - last 24 hr 01/02/19 01/02/19 Range/Units 05:45 05:45 WBC 9.85 (4.0-11.0) K/uL RBC 3.81 L (4.30-5.90) M/uL Hgb 8.5 L (12.0-16.0) g/dL Hct 29.5 L (36.0-46.0) % MCV 77.4 L (80.0-98.0) fL MCH 22.3 L (27.0-32.0) pg MCHC 28.8 L (31.0-37.0) g/dL RDW Std Deviation 67.2 H (28.0-62.0) fl RDW Coeff of Don 25 H (11.0-15.0) % Plt Count 608 H (150-400) K/uL MPV 8.90 (7.40-12.00) fL Neut % (Auto) 80.5 H (48.0-80.0) % Lymph % (Auto) 11.7 L (16.0-40.0) % Lea % (Auto) 7.1 (0.0-15.0) % Eos % (Auto) 0.2 (0.0-7.0) % Baso % (Auto) 0.5 (0.0-1.5) % Neut # (Auto) 7.9 H (1.4-5.7) K/uL Lymph # (Auto) 1.2 (0.6-2.4) K/uL Lea # (Auto) 0.7 (0.0-0.8) K/uL Eos # (Auto) 0.0 (0.0-0.7) K/uL Baso # (Auto) 0.1 (0.0-0.1) K/uL Nucleated RBC % 0.0 /100WBC Nucleated RBCs # 0 K/uL Sodium 140 (136-145) mmol/L Potassium 3.7 (3.5-5.1) mmol/L Chloride 103 (98-107) mmol/L Carbon Dioxide 23.2 (21.0-32.0) mmol/L BUN 4 L (7.0-18.0) mg/dL Creatinine 0.6 (0.6-1.0) mg/dL Est Cr Clr Drug Dosing 110.84 mL/min Estimated GFR (MDRD) > 60.0 ml/min Glucose 79 (74-106) mg/dL Calcium 8.5 (8.5-10.1) mg/dL Med Orders - Current: Current Medications Acetaminophen (Tylenol) 650 mg PO Q6H PRN PRN Reason: Pain Last Admin: 01/01/19 21:48 Dose: 650 mg Metronidazole 500 mg/ Premix 100 mls @ 100 mls/hr IV Q8H [facility] Last Admin: 01/02/19 06:30 Dose: 100 mls/hr Sodium Chloride (Normal Saline) 1,000 mls @ 75 mls/hr IV ASDIRECTED [facility] Last Admin: 01/02/19 04:13 Dose: 75 mls/hr Pantoprazole Sodium 40 mg/ (Sodium Chloride) 10 mls @ 200 mls/hr IVPUSH Q12H [facility] Last Admin: 01/02/19 03:14 Dose: 200 mls/hr Morphine Sulfate (Morphine) 2 mg IV Q2H PRN PRN Reason: Pain Last Admin: 01/01/19 23:32 Dose: 2 mg Nicotine (Habitrol) 14 mg TRDERM DAILY [facility] Last Admin: 01/01/19 12:33 Dose: 14 mg Ondansetron HCl (Zofran) 4 mg IVPUSH Q4H PRN PRN Reason: Nausea Last Admin: 01/01/19 20:20 Dose: 4 mg Oxycodone HCl (Oxycodone) 5 mg PO Q4H PRN PRN Reason: Pain Last Admin: 01/02/19 07:25 Dose: 5 mg Sucralfate (Carafate) 1 gm PO TIDAC [facility] Last Admin: 01/02/19 06:30 Dose: 1 gm Discontinued Medications Sodium Chloride (Normal Saline) 1,000 mls @ 999 mls/hr IV NOW STA Stop: 12/31/18 11:52 Last Admin: 12/31/18 11:19 Dose: 999 mls/hr Ceftriaxone Sodium/Dextrose 1 (gm/ Premix) 50 mls @ 100 mls/hr IV ONETIME ONE Stop: 12/31/18 13:43 Last Admin: 12/31/18 14:30 Dose: Not Given Metronidazole 500 mg/ Premix 100 mls @ 100 mls/hr IV ONETIME ONE Stop: 12/31/18 14:13 Last Admin: 12/31/18 14:00 Dose: 100 mls/hr Ceftriaxone Sodium/Dextrose 1 (gm/ Premix) 50 mls @ 100 mls/hr IV Q24H [facility] Last Admin: 12/31/18 14:30 Dose: Not Given Pantoprazole Sodium 40 mg/ (Sodium Chloride) 100 mls @ 10 mls/hr IVPUSH Q12H [facility] Last Admin: 12/31/18 14:30 Dose: Not Given Pantoprazole Sodium 40 mg/ (Sodium Chloride) 10 mls @ 200 mls/hr IV Q12H [facility] Iopamidol (Isovue Multipack-370 (76%)) 85 ml IVPUSH ONETIME ONE Stop: 12/31/18 13:01 Last Admin: 12/31/18 13:00 Dose: 85 ml Morphine Sulfate (Morphine) 2 mg IVPUSH ONETIME ONE Stop: 12/31/18 10:53 Last Admin: 12/31/18 11:21 Dose: 2 mg Morphine Sulfate (Morphine) 2 mg IVPUSH Q2H PRN PRN Reason: Pain (severe 7-10) Stop: 01/01/19 13:46 Last Admin: 12/31/18 20:40 Dose: 2 mg Morphine Sulfate (Morphine) 2 mg IVPUSH STAT ONE Stop: 12/31/18 14:18 Last Admin: 12/31/18 14:21 Dose: 2 mg Ondansetron HCl (Zofran) 4 mg IVPUSH ONETIME ONE Stop: 12/31/18 10:53 Last Admin: 12/31/18 11:20 Dose: 4 mg Propofol (Diprivan 20 Ml) Confirm Administered Dose 400 mg .ROUTE .STK-MED ONE Stop: 01/01/19 13:03 - Exam General: Alert, Oriented, Cooperative Lungs: Normal Respiratory Effort Cardiovascular: Regular Rate GI/Abdominal Exam: Soft, Non-Tender, No Distention, No Mass Consult PN Assessment/Plan Procedures: Procedures ASSAY OF LIPASE (12/25/18) ASSAY OF TROPONIN QUANT (12/24/18) BLOOD CULTURE FOR BACTERIA (12/24/18) BLOOD TRANSFUSION SERVICE (12/24/18) BLOOD TYPING SEROLOGIC ABO (12/24/18) BLOOD TYPING SEROLOGIC RH(D) (12/24/18) COMPATIBILITY TEST ANTIGLOB (12/24/18) COMPATIBILITY TEST INCUBATE (12/24/18) COMPATIBILITY TEST SPIN (12/24/18) COMPLETE CBC W/AUTO DIFF WBC (12/25/18) COMPREHEN METABOLIC PANEL (12/25/18) CT ABD & PELV W/CONTRAST (12/24/18) ECHO EXAM OF ABDOMEN (12/24/18) ELECTROCARDIOGRAM TRACING (12/24/18) EMERGENCY DEPT VISIT (12/25/18) EMERGENCY DEPT VISIT (12/24/18) HELICOBACTER PYLORI ANTIBODY (12/24/18) HEMATOCRIT (12/24/18) HEMOGLOBIN (12/24/18) HYDRATE IV INFUSION ADD-ON (12/25/18) METABOLIC PANEL TOTAL CA (12/24/18) RBC ANTIBODY SCREEN (12/24/18) ROUTINE VENIPUNCTURE (12/25/18) THER/PROPH/DIAG INJ IV PUSH (12/25/18) TX/PRO/DX INJ NEW DRUG ADDON (12/25/18) TX/PRO/DX INJ SAME DRUG TIMBER SETTER (12/24/18) URINALYSIS AUTO W/O SCOPE (12/24/18) URINE TEST (12/24/18) X-RAY EXAM SERIES ABDOMEN (12/25/18) (1) Gastritis SNOMED Code(s): 0954212 Code(s): K29.70 - GASTRITIS, UNSPECIFIED, WITHOUT BLEEDING Current Visit: Yes Qualifiers: Gastritis type: unspecified gastritis Chronicity: unspecified Gastritis bleeding: presence of bleeding unspecified Qualified Code(s): K29.70 - Gastritis, unspecified, without bleeding (2) Anemia SNOMED Code(s): 549609261 Code(s): D64.9 - ANEMIA, UNSPECIFIED Priority: High Current Visit: Yes Qualifiers: Anemia type: iron deficiency Iron deficiency anemia type: chronic blood loss Qualified Code(s): D50.0 - Iron deficiency anemia secondary to blood loss (chronic) (3) Ulcer SNOMED Code(s): 635577139 Code(s): KOG8521 - Current Visit: Yes Problem List Initiated/Reviewed/Updated: Yes My Orders Last 24 Hours: My Active Orders 01/01/19 12:15 Nicotine [Habitrol] 14 mg TRDERM DAILY Plan: Patient's diet can be advanced to regular. I encouraged her to avoid large bites of food. Any meat that she eats should be cut up into very small pieces and chewed thoroughly. I encouraged her to eat frequent small meals. I wrote for discharge oxycodone 5mg 1-2 tabs q 4hr as needed for pain. I will manage her pain as an outpatient. She should be discharged home on carafate/sucralfate and pantoprazole BID. I will follow up with the patient this week regarding her pathology results and the next steps in treatment after that. Please call with questions or concerns.
[2019-01-02] MEDS: Nicotine 14 MG/24 Hr Patch TRDERM SCH (09:15)
--- NOTE | 2019-01-02 13:39 | PCM.DCSUM1 ---
Discharge Summary - Discharge Data Discharge Date: 01/02/19 Discharge Disposition: Home, Self-Care 01 Condition: Good - Patient Summary/Data Operative Procedure(s) Performed: Diagnostic EGD with biopsy Consults: Consultations 12/31/18 13:07 Consult to Physician [CONS] Stat Hospital Course: 43 yo female who was admitted for gastritis and found to have large gastric ulcer on EGD. She presented with abdominal pain, and nausea, Her lab values were significant for a WBC of 14,210, Hgb of 9.7, and platelet of 776. H.pylori testing was negative. CT scan showed distal stomach wall thickening. She was treated with IV Protonix, morphine, Rocephin and azithromycin. Patient initially was not wanting further work up but then agreed to EGD. EGD showed large irregular ulcer of 1/3 lumen of antral stomach with adherent clot. There was also a small duodenal ulcer and hiatal hernia. Biopsies were taken. Patient today is requesting discharge home. Dr. Wilcox recommended discharge on Flagyl, PPI, carafate and oxycodone and to follow up in clinic regarding pathology report as the ulcer was suspicious for cancer. Patient understood of the need for follow up and that more biopsy may be needed. - Patient Instructions Diet: Usual Diet as Tolerated Activity: As Tolerated Notify Provider of: Fever, Increased Pain, Nausea and/or Vomiting - Discharge Plan Prescriptions/Med Rec: metroNIDAZOLE [Flagyl] 500 mg PO Q8H #30 tab Pantoprazole [ProTONIX] 40 mg PO BID #30 tab.cr Home Medications: Home Meds Calcium Carbonate [Calcium] 500 mg PO DAILY 12/23/18 [History] Levonorgestrel-Ethin Estradiol [Lutera-28 Tablet] 1 each PO DAILY 12/23/18 [ History] Lisinopril 20 mg PO DAILY 12/23/18 [History] MV,Ca,Min/Iron Fum/FA/Vit K [Multi For Her Tablet] 1 each PO DAILY 12/23/18 [ History] Magnesium 250 mg PO DAILY 12/23/18 [History] Ondansetron [Zofran] 4 mg PO Q8H PRN 12/23/18 [History] Potassium 99 mg PO DAILY 12/23/18 [History] rOPINIRole [Requip] 1 mg PO BEDTIME 12/23/18 [History] traMADol [Ultram] 50 mg PO Q8H 12/23/18 [History] Sucralfate [Carafate] 1 gm PO QIDACANDBED #40 cup 12/25/18 [Rx] Temazepam [Restoril] 15 mg PO BEDTIME PRN cap 12/25/18 [Rx] Pantoprazole [ProTONIX] 40 mg PO BID #30 tab.cr 01/02/19 [Rx] metroNIDAZOLE [Flagyl] 500 mg PO Q8H #30 tab 01/02/19 [Rx] oxyCODONE 5 mg PO Q4H PRN tablet 01/02/19 [Rx] Patient Handouts: Esophagogastroduodenoscopy, Esophagogastroduodenoscopy, Care After Referrals: Myke Barillas DO [Ordering Only Provider] - 01/07/19 11:00 am Mariann Wilcox MD [Physician] - (Call on Thursday to make and appointment for next week.) - Discharge Summary/Plan Comment DC Time >30 min.: No - Patient Data Vitals - Most Recent: Last Vital Signs Temp 37.4 C 01/02/19 07:25 Pulse 68 01/02/19 04:00 Resp 16 01/02/19 07:25 BP 167/72 H 01/02/19 07:25 Pulse Ox 98 01/02/19 07:25 Weight - Most Recent: 67.585 kg I&O - Last 24 hours: Intake & Output 01/01/19 01/02/19 01/02/19 22:59 06:59 14:59 Intake Total 198 1214 3000 Output Total 1750 1450 Balance 198 -536 1550 Lab Results - Last 24 hrs: Laboratory Results - last 24 hr 01/02/19 01/02/19 Range/Units 05:45 05:45 WBC 9.85 (4.0-11.0) K/uL RBC 3.81 L (4.30-5.90) M/uL Hgb 8.5 L (12.0-16.0) g/dL Hct 29.5 L (36.0-46.0) % MCV 77.4 L (80.0-98.0) fL MCH 22.3 L (27.0-32.0) pg MCHC 28.8 L (31.0-37.0) g/dL RDW Std Deviation 67.2 H (28.0-62.0) fl RDW Coeff of Don 25 H (11.0-15.0) % Plt Count 608 H (150-400) K/uL MPV 8.90 (7.40-12.00) fL Neut % (Auto) 80.5 H (48.0-80.0) % Lymph % (Auto) 11.7 L (16.0-40.0) % Person % (Auto) 7.1 (0.0-15.0) % Eos % (Auto) 0.2 (0.0-7.0) % Baso % (Auto) 0.5 (0.0-1.5) % Neut # (Auto) 7.9 H (1.4-5.7) K/uL Lymph # (Auto) 1.2 (0.6-2.4) K/uL Person # (Auto) 0.7 (0.0-0.8) K/uL Eos # (Auto) 0.0 (0.0-0.7) K/uL Baso # (Auto) 0.1 (0.0-0.1) K/uL Nucleated RBC % 0.0 /100WBC Nucleated RBCs # 0 K/uL Sodium 140 (136-145) mmol/L Potassium 3.7 (3.5-5.1) mmol/L Chloride 103 (98-107) mmol/L Carbon Dioxide 23.2 (21.0-32.0) mmol/L BUN 4 L (7.0-18.0) mg/dL Creatinine 0.6 (0.6-1.0) mg/dL Est Cr Clr Drug Dosing 110.84 mL/min Estimated GFR (MDRD) > 60.0 ml/min Glucose 79 (74-106) mg/dL Calcium 8.5 (8.5-10.1) mg/dL Med Orders - Current: Current Medications Acetaminophen (Tylenol) 650 mg PO Q6H PRN PRN Reason: Pain Last Admin: 01/01/19 21:48 Dose: 650 mg Metronidazole 500 mg/ Premix 100 mls @ 100 mls/hr IV Q8H [facility] Last Admin: 01/02/19 06:30 Dose: 100 mls/hr Sodium Chloride (Normal Saline) 1,000 mls @ 75 mls/hr IV ASDIRECTED [facility] Last Admin: 01/02/19 04:13 Dose: 75 mls/hr Pantoprazole Sodium 40 mg/ (Sodium Chloride) 10 mls @ 200 mls/hr IVPUSH Q12H [facility] Last Admin: 01/02/19 03:14 Dose: 200 mls/hr Morphine Sulfate (Morphine) 2 mg IV Q2H PRN PRN Reason: Pain Last Admin: 01/01/19 23:32 Dose: 2 mg Nicotine (Habitrol) 14 mg TRDERM DAILY [facility] Last Admin: 01/02/19 09:15 Dose: 14 mg Ondansetron HCl (Zofran) 4 mg IVPUSH Q4H PRN PRN Reason: Nausea Last Admin: 01/01/19 20:20 Dose: 4 mg Oxycodone HCl (Oxycodone) 5 mg PO Q4H PRN PRN Reason: Pain Last Admin: 01/02/19 11:25 Dose: 5 mg Sucralfate (Carafate) 1 gm PO TIDAC [facility] Last Admin: 01/02/19 11:25 Dose: 1 gm Discontinued Medications Sodium Chloride (Normal Saline) 1,000 mls @ 999 mls/hr IV NOW STA Stop: 12/31/18 11:52 Last Admin: 12/31/18 11:19 Dose: 999 mls/hr Ceftriaxone Sodium/Dextrose 1 (gm/ Premix) 50 mls @ 100 mls/hr IV ONETIME ONE Stop: 12/31/18 13:43 Last Admin: 12/31/18 14:30 Dose: Not Given Metronidazole 500 mg/ Premix 100 mls @ 100 mls/hr IV ONETIME ONE Stop: 12/31/18 14:13 Last Admin: 12/31/18 14:00 Dose: 100 mls/hr Ceftriaxone Sodium/Dextrose 1 (gm/ Premix) 50 mls @ 100 mls/hr IV Q24H [facility] Last Admin: 12/31/18 14:30 Dose: Not Given Pantoprazole Sodium 40 mg/ (Sodium Chloride) 100 mls @ 10 mls/hr IVPUSH Q12H [facility] Last Admin: 12/31/18 14:30 Dose: Not Given Pantoprazole Sodium 40 mg/ (Sodium Chloride) 10 mls @ 200 mls/hr IV Q12H [facility] Iopamidol (Isovue Multipack-370 (76%)) 85 ml IVPUSH ONETIME ONE Stop: 12/31/18 13:01 Last Admin: 12/31/18 13:00 Dose: 85 ml Morphine Sulfate (Morphine) 2 mg IVPUSH ONETIME ONE Stop: 12/31/18 10:53 Last Admin: 12/31/18 11:21 Dose: 2 mg Morphine Sulfate (Morphine) 2 mg IVPUSH Q2H PRN PRN Reason: Pain (severe 7-10) Stop: 01/01/19 13:46 Last Admin: 12/31/18 20:40 Dose: 2 mg Morphine Sulfate (Morphine) 2 mg IVPUSH STAT ONE Stop: 12/31/18 14:18 Last Admin: 12/31/18 14:21 Dose: 2 mg Ondansetron HCl (Zofran) 4 mg IVPUSH ONETIME ONE Stop: 12/31/18 10:53 Last Admin: 12/31/18 11:20 Dose: 4 mg Propofol (Diprivan 20 Ml) Confirm Administered Dose 400 mg .ROUTE .STK-MED ONE Stop: 01/01/19 13:03
== END 2019-01-02 13:50 | disposition home or self-care (01) ==
LOC: MW.ED 10:37 → MW.MS 13:44
PROVIDERS: ADMIT Internal Medicine; ATTEND Internal Medicine
DX: K25.9 Gastric ulcer, unspecified as acute or chronic, without hemorrhage or perforation (principal); K26.9 Duodenal ulcer, unspecified as acute or chronic, without hemorrhage or perforation; K29.50 Unspecified chronic gastritis without bleeding; K44.9 Diaphragmatic hernia without obstruction or gangrene; I10 Essential (primary) hypertension; F17.210 Nicotine dependence, cigarettes, uncomplicated; D72.829 Elevated white blood cell count, unspecified; D50.9 Iron deficiency anemia, unspecified; G43.909 Migraine, unspecified, not intractable, without status migrainosus; J45.909 Unspecified asthma, uncomplicated; Z79.899 Other long term (current) drug therapy; Z88.0 Allergy status to penicillin; Z88.1 Allergy status to other antibiotic agents
CPT/HCPCS: 36415; 43239; 74177; 80048; 80053; 81003; 81025; 83690; 85025; 85027; 86677; 88305; 88312; 96361; 96365; 96366; 96375; 96376; 99285; A4217; A9270; C9113; G0378; J2270; J2405; J2704; J3490; J7040; J7050; Q9967; 00731; 99283

== ENCOUNTER 2019-01-05 04:03 | Inpatient (IN) | payer SELFPAY ==
[2019-01-05] MEDS ORDERED: Sodium Chloride 0.9% 1,000 ML IV ONE ×3 (07:26→12:33)
[2019-01-05] MEDS ORDERED: 50% Dextrose in Water 50 ML Syringe IVPUSH ONE ×2 (07:26→09:43)
[2019-01-05 07:42] LABS: CHLORIDE,CL 100 mmol/L (98-107); SODIUM,NA 143 mmol/L (136-145)
[2019-01-05] MEDS ORDERED: Dextrose 5%-0.45% NaCl 1,000 ML IV SCH (09:45)
[2019-01-05] MEDS ORDERED: metroNIDAZOLE/Normal Saline 500 MG in Premix Bag 1 BAG IV SCH ×2 (09:45→11:15)
[2019-01-05] MEDS ORDERED: Cefepime 2 GM in Premix Bag 1 BAG IV SCH (09:45)
[2019-01-05] MEDS: Morphine 10 MG/ML Syringe IVPUSH PRN ×4 (10:01→16:13)
--- NOTE | 2019-01-05 11:00 | CT ---
INDICATION: ABDOMINAL PAIN R/O PERFORATIONOF GASTRIC ULCER HISTORY: Abdominal pain. Evaluate for perforated gastric ulcer. COMPARISON: CT of the abdomen and pelvis 12/31/2018. TECHNIQUE: CT of the abdomen and pelvis. No intravenous contrast. Coronal/sagittal reconstruction images. FINDINGS: Lung bases: There is no pleural or pericardial effusion. The heart size is normal. There is bilateral dependent atelectasis. There is no acute airspace disease. There is no basilar pneumothorax. Abdomen/pelvis: Diffuse hepatic steatosis. No inflammatory changes adjacent to the gallbladder. The spleen size is normal. There is no pancreatic mass or pancreatic duct dilation. There is no hydronephrosis. There is cortical loss present in the right kidney. There is no perinephric fluid collection. No pancreatic mass pancreatic duct dilation. Presumably, there are tampons within the vagina. There is no adnexal mass. Thickening of the endometrial complex is not well appreciated today, secondary to inch the absence of intravenous contrast media. There is no evidence of a small bowel or colonic obstruction. There is motion artifact which limits image quality. Normal caliber, retrocecal appendix. The bone windows demonstrate no suspicious lytic or blastic bone lesions. The alignment is preserved. On sagittal reconstruction images, the vertebral body heights are maintained. IMPRESSION: 1. There is no pneumoperitoneum or evidence for a gastric perforation. 2. Interval improvement in gastric wall thickening, involving the distal body/antrum of the stomach. 3. No abdominal or pelvic lymphadenopathy. 4. Report called to Dr. Trujillo, referring clinical service, 01/05/2019, 10:57 a.m. Dictated by Demario Herrera MD @ 01/05/2019 10:58:12 AM Please note that all CT scans at this facility use dose modulation, iterative reconstruction, and/or weight-based dosing when appropriate to reduce radiation dose to as low as reasonably achievable. Dictated by: Demario Herrera MD @ 01/05/2019 10:58:48 (Electronically Signed)
[2019-01-05] MEDS ORDERED: Heparin Sodium 5,000 Units/ML Vial SUBCUT SCH (11:15)
[2019-01-05] MEDS ORDERED: Ondansetron 4 MG/2 ML SDV IVPUSH PRN ×2 (12:34→16:30)
[2019-01-05] MEDS ORDERED: Ondansetron 4 MG/2 ML SDV IVPUSH ONE (12:34)
--- NOTE | 2019-01-05 12:59 | PCM.HP ---
Addendum entered and electronically signed by Nico Hurd MD 01/05/19 15:22: Discussion with pathologist took place with pending results indicating no cancer from the biopsies obtained, although these biopsy samples may have been taken from the incorrect location. This was discussed with the patient again at 1430 and offered transfer to a facility where she could have a re-evaluation (re -biopsy) by a surgeon and possible correction of the underlying situation. Patient was agreeable at this time for transfer to [place] after a lengthy discussion that took place from morning up until the time listed above when the patient became agreeable. Transfer summary: Assessment at time of transfer: #1. Sepsis #2. Possible toxic shock syndrome #3. Ischemic hepatitis #4. Elevated troponin #5. KATIA #6. Leukocytosis #7. Normocytic anemia #8. Hypoglycemia #9. Thrombocytosis #10. Transaminitis #11. Tachycardia #12. Gastritis with large ulcer #13. Acetaminophen toxicity. This patients case was discussed with ER Physician in [place], Dr. Garrett, who agreed on transfer. The patient is agreeable to this. At the time of discharge, the patient was awake, alert, and oriented. She had a persistently elevated lactic acid at 13 despite fluid resuscitation. She was given a bolus of protonix. Original Note: H&P History of Present Illness - General Date of Service: 01/05/19 Admit Problem/Dx: Admission Diagnosis/Problem Admission Diagnosis/Problem Altered mental status Source of Information: Patient History Limitations: Reports: No Limitations - History of Present Illness Initial Comments - Free Text/Narative: 43F with a history of a large gastric ulcer w/concerns of malignancy on EGD done last week presented to the ER with a chief complaint of nausea, vomiting, abdominal pain. In the ER, she was found to be hypoglycemic and was given d50 x1 and IV NS bolus x1. ER work up: WBC - 33k Hgb - 9.6 MCV - 81.5 Platelets 1,075,000 Na 143 K+ 3.8 BUN 18 Cr 2.3 Glucose 28 Trop 0.1 AST - Not reportable ALT - 3766 VS - tachycardic HR 120-130s, unremarkable BP, 94% RA CT Abdomen pelvis shows no evidence of pneumoperitoneum or gastric perforation. Shows improvement in gastric wall thickening compared to previous CT. There are presumably tampon(s) in the vagina. Patient right now complains of nausea, abdominal pain. She denies chest pain, shortness of breath. Abdominal Pain Score (Numeric/FACES): 10 - Related Data Allergies/Adverse Reactions: Allergies Allergy/AdvReac Type Severity Reaction Status Date / Time ciprofloxacin [From Cipro] Allergy Nausea and Verified 01/05/19 06:54 Vomiting Penicillins Allergy Anaphylactic Verified 01/05/19 06:54 Shock Home Medications: Home Meds rOPINIRole [Requip] 2 mg PO BEDTIME 12/23/18 [History] Sucralfate [Carafate] 1 gm PO QIDACANDBED #40 cup 12/25/18 [Rx] Pantoprazole [ProTONIX] 40 mg PO BID #30 tab.cr 01/02/19 [Rx] oxyCODONE 5 mg PO Q4H PRN tablet 01/02/19 [Rx] Fluconazole [Diflucan] 1 tab PO DAILY 01/05/19 [History] Lisinopril/Hydrochlorothiazide [Lisinopril-Hctz 20-25 mg Tab] 1 tab PO DAILY [History] Past Medical History - Past Health History Medical/Surgical History: Denies Medical/Surgical History HEENT History: Reports: None Cardiovascular History: Reports: Hypertension Respiratory History: Reports: Asthma Gastrointestinal History: Reports: GERD Genitourinary History: Reports: None 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: Reports: Musculoskeletal History: Reports: None Neurological History: Reports: Concussion, Migraines Other Neuro History: Restless Leg Syndrome Psychiatric History: Reports: None Endocrine/Metabolic History: Reports: None Hematologic History: Reports: None Immunologic History: Reports: None Oncologic (Cancer) History: Reports: None Dermatologic History: Reports: None - Infectious Disease History Infectious Disease History: Reports: None - Past Surgical History Head Surgeries/Procedures: Reports: None HEENT Surgical History: Reports: Oral Surgery Other GI Surgeries/Procedures: EGD Social & Family History - Family History Family Medical History: Noncontributory - Tobacco Use Smoking Status *Q: Current Every Day Smoker Years of Tobacco use: 30 Packs/Tins Daily: 0.5 Second Hand Smoke Exposure: No - Caffeine Use Caffeine Use: Reports: Coffee - Recreational Drug Use Recreational Drug Use: No H&P Review of Systems - Review of Systems: Review Of Systems: See Below General: Reports: Weakness, Fatigue, Decreased Appetite HEENT: Reports: No Symptoms Pulmonary: Reports: No Symptoms Cardiovascular: Reports: No Symptoms Gastrointestinal: Reports: Abdominal Pain, Decreased Appetite, Nausea. Denies: Bloody Stool, Difficulty Swallowing, Distension, Hematemesis, Hematochezia Genitourinary: Reports: No Symptoms Musculoskeletal: Reports: No Symptoms Skin: Reports: No Symptoms Psychiatric: Reports: No Symptoms Neurological: Reports: No Symptoms Hematologic/Lymphatic: Reports: No Symptoms Immunologic: Reports: No Symptoms Exam - Exam Exam: See Below - Vital Signs Vital Signs: Last Vital Signs Temp 36.7 C 01/05/19 12:00 Pulse 112 H 01/05/19 12:00 Resp 20 01/05/19 12:00 BP 113/46 L 01/05/19 12:00 Pulse Ox 97 01/05/19 12:00 Weight: 66 kg - Exam General: Alert, Oriented, Mild Distress, Other (scleral icterus, jaundiced) HEENT: Conjunctiva Clear, EACs Clear, EOMI Neck: Supple, Trachea Midline Lungs: Clear to Auscultation, Normal Respiratory Effort Cardiovascular: Regular Rate, Regular Rhythm GI/Abdominal Exam: Other (RUQ/Epigastric tenderness to minimal palpation. ) Back Exam: Normal Inspection, Full Range of Motion, NT Extremities: Normal Inspection, Normal Range of Motion, Non-Tender, No Pedal Edema, Normal Capillary Refill Peripheral Pulses: 2+: Dorsalis Pedis (L), Dorsalis Pedis (R) Skin: Warm, Dry, Intact Neuro Extensive - Mental Status: Alert, Oriented x3, Normal Mood/Affect, Normal Cognition Psychiatric: Alert, Normal Affect, Anxious - Patient Data Lab Results Last 24 hrs: Laboratory Results - last 24 hr 01/05/19 01/05/19 01/05/19 Range/Units 04:10 04:10 04:10 WBC 33.33 H (4.0-11.0) K/uL RBC 4.27 L (4.30-5.90) M/uL Hgb 9.6 L (12.0-16.0) g/dL Hct 34.8 L (36.0-46.0) % MCV 81.5 (80.0-98.0) fL MCH 22.5 L (27.0-32.0) pg MCHC 27.6 L (31.0-37.0) g/dL RDW Std Deviation 72.6 H (28.0-62.0) fl RDW Coeff of Don 25 H (11.0-15.0) % Plt Count 1075 H (150-400) K/uL MPV 9.40 (7.40-12.00) fL Add Manual Diff YES Neutrophils % (Manual) 89 H (48.0-80.0) % Band Neutrophils % 7 % Lymphocytes % (Manual) 2 L (16.0-40.0) % Monocytes % (Manual) 2 (0.0-15.0) % Nucleated RBC % 0.0 /100WBC Absolute Seg Neuts 29.7 H (1.4-5.7) Band Neutrophils # 2.3 Lymphocytes # (Manual) 0.7 (0.6-2.4) Monocytes # (Manual) 0.7 (0.0-0.8) Nucleated RBCs # 0 K/uL Lactate (0.20-2.00) mmol/L Sodium 143 (136-145) mmol/L Potassium 3.8 (3.5-5.1) mmol/L Chloride 100 (98-107) mmol/L Carbon Dioxide 7.1 L (21.0-32.0) mmol/L BUN 18 (7.0-18.0) mg/dL Creatinine 2.3 H (0.6-1.0) mg/dL Est Cr Clr Drug Dosing TNP Estimated GFR (MDRD) 22.9 ml/min Glucose 28 L* (74-106) mg/dL POC Glucose (60-110) mg/dL Calcium 10.3 H (8.5-10.1) mg/dL Total Bilirubin 1.2 H (0.2-1.0) mg/dL AST Not Reportable ALT 3766 H (14-63) IU/L Alkaline Phosphatase 158 H (46-116) U/L Troponin I 0.191 H* (0.000-0.056) ng/mL Total Protein 6.5 (6.4-8.2) g/dL Albumin 3.2 L (3.4-5.0) g/dL Globulin 3.3 (2.6-4.0) g/dL Albumin/Globulin Ratio 1.0 (0.9-1.6) Urine Color Urine Appearance Urine pH (5.0-8.0) Ur Specific [place] (1.001-1.035) Urine Protein (NEGATIVE) mg/dL Urine Glucose (UA) (NEGATIVE) mg/dL Urine Ketones (NEGATIVE) mg/dL Urine Occult Blood (NEGATIVE) Urine Nitrite (NEGATIVE) Urine Bilirubin (NEGATIVE) Urine Ictotest Urine Urobilinogen (<2.0) EU/dL Ur Leukocyte Esterase (NEGATIVE) Urine RBC (0-2/HPF) Urine WBC (0-5/HPF) Ur Epithelial Cells (NONE-FEW) Amorphous Sediment (NEGATIVE) Urine Bacteria (NEGATIVE) Urine HCG, Qual (NEGATIVE) Urine Opiates Screen (NEGATIVE) Ur Oxycodone Screen (NEGATIVE) Urine Methadone Screen (NEGATIVE) Ur Barbiturates Screen (NEGATIVE) Ur Phencyclidine Scrn (NEGATIVE) Ur Amphetamine Screen (NEGATIVE) U Methamphetamines Scrn (NEGATIVE) U Benzodiazepines Scrn (NEGATIVE) U Cocaine Metab Screen (NEGATIVE) U Marijuana (THC) Screen (NEGATIVE) Blood Type O POSITIVE Antibody Screen NEGATIVE 01/05/19 01/05/19 01/05/19 Range/Units 05:49 05:49 05:49 WBC (4.0-11.0) K/uL RBC (4.30-5.90) M/uL Hgb (12.0-16.0) g/dL Hct (36.0-46.0) % MCV (80.0-98.0) fL MCH (27.0-32.0) pg MCHC (31.0-37.0) g/dL RDW Std Deviation (28.0-62.0) fl RDW Coeff of Don (11.0-15.0) % Plt Count (150-400) K/uL MPV (7.40-12.00) fL Add Manual Diff Neutrophils % (Manual) (48.0-80.0) % Band Neutrophils % % Lymphocytes % (Manual) (16.0-40.0) % Monocytes % (Manual) (0.0-15.0) % Nucleated RBC % /100WBC Absolute Seg Neuts (1.4-5.7) Band Neutrophils # Lymphocytes # (Manual) (0.6-2.4) Monocytes # (Manual) (0.0-0.8) Nucleated RBCs # K/uL Lactate (0.20-2.00) mmol/L Sodium (136-145) mmol/L Potassium (3.5-5.1) mmol/L Chloride (98-107) mmol/L Carbon Dioxide (21.0-32.0) mmol/L BUN (7.0-18.0) mg/dL Creatinine (0.6-1.0) mg/dL Est Cr Clr Drug Dosing Estimated GFR (MDRD) ml/min Glucose (74-106) mg/dL POC Glucose (60-110) mg/dL Calcium (8.5-10.1) mg/dL Total Bilirubin (0.2-1.0) mg/dL AST ALT (14-63) IU/L Alkaline Phosphatase (46-116) U/L Troponin I (0.000-0.056) ng/mL Total Protein (6.4-8.2) g/dL Albumin (3.4-5.0) g/dL Globulin (2.6-4.0) g/dL Albumin/Globulin Ratio (0.9-1.6) Urine Color YELLOW Urine Appearance CLEAR Urine pH 5.0 (5.0-8.0) Ur Specific [place] >= 1.030 (1.001-1.035) Urine Protein 100 H (NEGATIVE) mg/dL Urine Glucose (UA) NEGATIVE (NEGATIVE) mg/dL Urine Ketones TRACE H (NEGATIVE) mg/dL Urine Occult Blood NEGATIVE (NEGATIVE) Urine Nitrite NEGATIVE (NEGATIVE) Urine Bilirubin SMALL H (NEGATIVE) Urine Ictotest POSITIVE Urine Urobilinogen 0.2 (<2.0) EU/dL Ur Leukocyte Esterase NEGATIVE (NEGATIVE) Urine RBC 0-1 (0-2/HPF) Urine WBC 1-2 (0-5/HPF) Ur Epithelial Cells FEW (NONE-FEW) Amorphous Sediment HEAVY (NEGATIVE) Urine Bacteria FEW (NEGATIVE) Urine HCG, Qual NEGATIVE (NEGATIVE) Urine Opiates Screen NEGATIVE (NEGATIVE) Ur Oxycodone Screen POSITIVE (NEGATIVE) Urine Methadone Screen NEGATIVE (NEGATIVE) Ur Barbiturates Screen NEGATIVE (NEGATIVE) Ur Phencyclidine Scrn NEGATIVE (NEGATIVE) Ur Amphetamine Screen NEGATIVE (NEGATIVE) U Methamphetamines Scrn NEGATIVE (NEGATIVE) U Benzodiazepines Scrn NEGATIVE (NEGATIVE) U Cocaine Metab Screen NEGATIVE (NEGATIVE) U Marijuana (THC) Screen NEGATIVE (NEGATIVE) Blood Type Antibody Screen 01/05/19 01/05/19 Range/Units 09:42 12:16 WBC (4.0-11.0) K/uL RBC (4.30-5.90) M/uL Hgb (12.0-16.0) g/dL Hct (36.0-46.0) % MCV (80.0-98.0) fL MCH (27.0-32.0) pg MCHC (31.0-37.0) g/dL RDW Std Deviation (28.0-62.0) fl RDW Coeff of Don (11.0-15.0) % Plt Count (150-400) K/uL MPV (7.40-12.00) fL Add Manual Diff Neutrophils % (Manual) (48.0-80.0) % Band Neutrophils % % Lymphocytes % (Manual) (16.0-40.0) % Monocytes % (Manual) (0.0-15.0) % Nucleated RBC % /100WBC Absolute Seg Neuts (1.4-5.7) Band Neutrophils # Lymphocytes # (Manual) (0.6-2.4) Monocytes # (Manual) (0.0-0.8) Nucleated RBCs # K/uL Lactate 13.6 H (0.20-2.00) mmol/L Sodium (136-145) mmol/L Potassium (3.5-5.1) mmol/L Chloride (98-107) mmol/L Carbon Dioxide (21.0-32.0) mmol/L BUN (7.0-18.0) mg/dL Creatinine (0.6-1.0) mg/dL Est Cr Clr Drug Dosing Estimated GFR (MDRD) ml/min Glucose (74-106) mg/dL POC Glucose 68 (60-110) mg/dL Calcium (8.5-10.1) mg/dL Total Bilirubin (0.2-1.0) mg/dL AST ALT (14-63) IU/L Alkaline Phosphatase (46-116) U/L Troponin I (0.000-0.056) ng/mL Total Protein (6.4-8.2) g/dL Albumin (3.4-5.0) g/dL Globulin (2.6-4.0) g/dL Albumin/Globulin Ratio (0.9-1.6) Urine Color Urine Appearance Urine pH (5.0-8.0) Ur Specific [place] (1.001-1.035) Urine Protein (NEGATIVE) mg/dL Urine Glucose (UA) (NEGATIVE) mg/dL Urine Ketones (NEGATIVE) mg/dL Urine Occult Blood (NEGATIVE) Urine Nitrite (NEGATIVE) Urine Bilirubin (NEGATIVE) Urine Ictotest Urine Urobilinogen (<2.0) EU/dL Ur Leukocyte Esterase (NEGATIVE) Urine RBC (0-2/HPF) Urine WBC (0-5/HPF) Ur Epithelial Cells (NONE-FEW) Amorphous Sediment (NEGATIVE) Urine Bacteria (NEGATIVE) Urine HCG, Qual (NEGATIVE) Urine Opiates Screen (NEGATIVE) Ur Oxycodone Screen (NEGATIVE) Urine Methadone Screen (NEGATIVE) Ur Barbiturates Screen (NEGATIVE) Ur Phencyclidine Scrn (NEGATIVE) Ur Amphetamine Screen (NEGATIVE) U Methamphetamines Scrn (NEGATIVE) U Benzodiazepines Scrn (NEGATIVE) U Cocaine Metab Screen (NEGATIVE) U Marijuana (THC) Screen (NEGATIVE) Blood Type Antibody Screen Result Diagrams: 01/05/19 04:10 01/05/19 04:10 Problem List Initiated/Reviewed/Updated: Yes Orders Last 24hrs: Active Orders 24 hr Category Date Time Status Admission Status [Patient Status] [ADT] Stat ADT 01/05/19 07:13 Active Antiembolic Devices [RC] PER UNIT ROUTINE Care 01/05/19 09:26 Active Cardiac Monitoring [RC] CONTINUOUS Care 01/05/19 09:25 Active Notify Provider Consults [RC] ASDIRECTED Care 01/05/19 09:57 Active Oxygen Therapy [RC] PRN Care 01/05/19 09:25 Active Up With Assistance [RC] ASDIRECTED Care 01/05/19 09:25 Active VTE/DVT Education [RC] PER UNIT ROUTINE Care 01/05/19 09:25 Active Vital Signs [RC] Q4H Care 01/05/19 09:25 Active Consult to Physician [CONS] Routine Cons 01/05/19 09:57 Active Chest 1V Frontal [CR] Stat Exams 01/05/19 Taken Head wo Cont [CT] Stat Exams 01/05/19 Taken ACETAMINOPHEN [CHEM] Routine Lab 01/05/19 12:16 Received CULTURE BLOOD [BC] Stat Lab 01/05/19 09:50 Ordered CULTURE BLOOD [BC] Stat Lab 01/05/19 12:16 Received HEPATITIS PANEL (4) [REF] Stat Lab 01/05/19 12:16 Received INR,PT,PROTHROMBIN TIME [COAG] Routine Lab 01/05/19 12:16 Received LACTATE DEHYDROGENASE,LDH [CHEM] Routine Lab 01/05/19 12:16 Received Cefepime [Maxipime in D5W 2 GM/50 ML] 2 gm Med 01/05/19 09:45 Active Premix Bag 1 bag IV Q8H Clindamycin Phosphate in D5W [Cleocin in D5W] 900 mg Med 01/05/19 13:00 Active Premix Bag 1 bag IV Q8H Dextrose 5%-0.45% NaCl [Dextrose 5%-1/2 NS] 1,000 ml Med 01/05/19 09:45 Active IV ASDIRECTED Heparin Sodium Med 01/05/19 11:15 Active 5,000 units SUBCUT Q8H Morphine Med 01/05/19 09:25 Active 2 mg IVPUSH Q2H PRN Ondansetron [Zofran] Med 01/05/19 16:30 Active 4 mg IVPUSH Q4H PRN Pharmacy to Dose - Vancomycin Med 01/05/19 12:30 Active 1 dose .XX ASDIRECTED Sodium Chloride 0.9% [Normal Saline] 1,000 ml Med 01/05/19 12:33 Active IV STAT Vancomycin [Vancocin] 1 gm Med 01/05/19 13:00 Active Sodium Chloride 0.9% [Normal Saline] 250 ml IV Q24H Blood Culture x2 Reflex Set [OM.PC] Stat Oth 01/05/19 09:50 Ordered Sequential Compression Device [OM.PC] Per Unit Routine Oth 01/05/19 09:26 Ordered Resuscitation Status Routine Resus Stat 01/05/19 09:25 Ordered Medication Orders Heparin Sodium (Porcine) (Heparin Sodium) 5,000 units SUBCUT Q8H [facility] Last Admin: 01/05/19 11:43 Dose: 5,000 units Dextrose/Sodium Chloride (Dextrose 5%-1/2 Ns) 1,000 mls @ 125 mls/hr IV ASDIRECTED JONATHAN Cefepime HCl 2 gm/ Premix 50 mls @ 100 mls/hr IV Q8H [facility] Last Admin: 01/05/19 10:41 Dose: 100 mls/hr Clindamycin Phosphate 900 mg/ (Premix) 50 mls @ 100 mls/hr IV Q8H [facility] Sodium Chloride (Normal Saline) 1,000 mls @ 999 mls/hr IV STAT ONE Stop: 01/05/19 13:33 Vancomycin HCl 1 gm/ Sodium (Chloride) 250 mls @ 166.667 mls/hr IV Q24H [facility] Morphine Sulfate (Morphine) 2 mg IVPUSH Q2H PRN PRN Reason: Pain (severe 7-10) Stop: 01/06/19 09:26 Last Admin: 01/05/19 12:17 Dose: 2 mg Admin: 01/05/19 10:01 Dose: 2 mg Ondansetron HCl (Zofran) 4 mg IVPUSH Q4H PRN PRN Reason: Nausea Vancomycin HCl (Pharmacy To Dose - Vancomycin) 1 dose .XX ASDIRECTED [facility] Assessment/Plan Comment:: Assessment: #1. Sepsis #2. Possible toxic shock syndrome #3. Ischemic hepatitis #4. Elevated troponin #5. KATIA #6. Leukocytosis #7. Normocytic anemia #8. Hypoglycemia #9. Thrombocytosis #10. Transaminitis #11. Tachycardia #12. Gastritis with large ulcer #13. Acetaminophen toxicity. Plan: #1. I discussed with the patient, along with the attending and consulted general surgeon about the prognosis given the lab findings. At this time, the CT of the abdomen/pelvis does not show a perforation. However, it is my recommendation to the patient that she be transferred to a higher level of care. The patient is reluctant to do this secondary to financial concerns. She would like to talk to her who is currently out of town and returning in the next half hour at the time of this note to the hospital. For now, the patient will be treated for presumed Toxic shock syndrome given [address] scan. She will be given IV vancomycin, clindamycin. She will be given IV cefepime, flagyl for possible intraabdominal process. She refuses pelvic exam. She removed the tampons herself. She will also be aggressively treated with fluid resuscitation. Will re-approach patient and as quick as possible to see what the patients goals are. Should the patient choose to refuse transfer , it was clearly stated to the patient that she would be choosing comfort care/ hospice as resources at this facility are limited. She understands. We will have case management discuss financial concerns further with the patient to provide more information. Discussed again with , case management at the bedside. The patient is adamant about not pursuing further care or a transfer. Will follow up on the pathology report from EGD which was concerning for possible malignancy.
[2019-01-05] MEDS ORDERED: Clindamycin Phosphate in D5W 900 MG in Premix Bag 1 BAG IV SCH ×2 (13:00)
[2019-01-05] MEDS ORDERED: Acetylcysteine 20% 200 MG/ML 30 ML SDV IV SCH (13:30)
--- NOTE | 2019-01-05 14:22 | PCM.SN ---
- Free Text/Narrative Note: Patient is a 43-year-old female who is brought in to the emergency room this morning for reported combativeness. She is found to be hypoglycemic. She had a head CT which was normal. She had a chest x-ray which is normal as well. She was admitted to the medicine service. I had seen her previously for abdominal pain. I scoped her on Thursday and found a large antral ulcer. She was given narcotic pain medication, twice a day pantoprazole, and Carafate and discharged home. Today she has an extremely high leukocytosis of 33,000 with a lactate of 13. Her LFTs are extremely high in her renal function is worsening. She underwent a CT scan of the abdomen. It was read as no evidence of ulcer perforation however when I reviewed the imaging with my senior education specialist we both agreed that we are concerned about what process could be going on in her stomach and if there is necrosis or an impending perforation. The patient is an extremely anxious female. She has always been and is currently reluctant to do any medical work up. She has consistently refused treatment including transfer. I explained the seriousness of her condition to both her and her . I explained that without ICU care at a bigger facility with further workup, that she is at great risk of complications including to a condition that may be reversible. She wanted to visit with her [id number]. I explained that the longer we wait the greater the chances that she will have more complications. She understands this. He was driving up to visit with her and make a determination of treatment. If she does not want anything she will go on hospice.
[2019-01-05] MEDS ORDERED: WATER IV SCH ×6 (15:00→20:00)
[2019-01-05] MEDS ORDERED: DEXTROSE 5% IV SCH ×6 (15:00→20:00)
[2019-01-05] MEDS ORDERED: ACETYLCYSTEINE IV SCH ×6 (15:00→20:00)
[2019-01-05] MEDS ORDERED: Pantoprazole 40 MG Vial IVPUSH ONE (15:15)
[2019-01-05] MEDS ORDERED: Pantoprazole 80 MG in Sodium Chloride 0.9% 100 ML IV SCH (15:30)
[2019-01-05] MEDS ORDERED: Nicotine 21 MG/24 Hr Patch TRDERM ONE (16:20)
--- NOTE | 2019-01-05 17:56 | CT ---
EXAM DATE: 01/05/19 PATIENT'S AGE: 43 Patient: PRITI MAX Facility: [facility] [place] : 1975 Study: CT-Head STROKE PROTOCOL -01/05/2019 4:21:50 AM Ordering Physician: Moises Final Report: INDICATION: Altered mental status, hypoglycemia, history of cancer. TECHNIQUE: CT Head without i.v. contrast. COMPARISON: None FINDINGS: CSF space: The ventricles are normal for age. Brain: No evidence of mass, acute infarction or hemorrhage is seen. No mass- effect or midline shift is seen. The brain parenchyma is otherwise normal in appearance with preservation of the sebastian-white matter junction. Calvarium: The visualized paranasal sinuses are well aerated. The mastoid air cells are clear. The visualized orbits are grossly unremarkable. The calvarium is unremarkable in appearance with no fractures identified. IMPRESSION: 1. No evidence of acute infarction, intracranial hemorrhage, or mass-effect seen. The findings were discussed with Dr. De Leon at 4:29 AM. Please note that all CT scans at this facility use dose modulation, iterative reconstruction, and/or weight-based dosing when appropriate to reduce radiation dose to as low as reasonably achievable. Dictated by: Rodrigo Pierre MD @ 01/05/2019 04:29:58 Signed by: Rodrigo Pierre MD @01/05/2019 4:29:58 AM (Electronic Signature) Report Signed by Proxy. KLAUS
--- NOTE | 2019-01-05 17:58 | CR ---
EXAM DATE: 01/05/19 PATIENT'S AGE: 43 Patient: PRITI MAX Facility: [facility] Site Patient ID: [id number] : [id number] Study: [id number]-Gyxfr-7/29/2019 5:40:31 AM Ordering Physician: Moises Final Report: INDICATION: Stroke code TECHNIQUE: Chest radiograph 1 view COMPARISON: None FINDINGS: Mediastinum: The mediastinum is normal in appearance. The heart silhouette is normal in size and morphology. Lung: A 1 cm nodular density seen in the right lower lung zone. No sign of pleural effusion seen. No pneumothorax is identified. Musculoskeletal: Unremarkable for age. IMPRESSION: 1. A 1 cm nodular density seen in the right lower lung zone. This may be due to a prominent nipple silhouette and follow-up two view standing radiographs with nipple markers recommended. Dictated by Rodrigo Pierre MD @ 01/05/2019 5:47:54 AM Dictated by: Rodrigo Pierre MD @ 01/05/2019 05:47:59 Signed by: Rodrigo Pierre MD @01/05/2019 5:47:59 AM (Electronic Signature) Report Signed by Proxy. KLAUS
[2019-01-05] MEDS ORDERED: METRONIDAZOLE IV SCH (18:00)
[2019-01-05] MEDS ORDERED: NORMAL SALINE IV SCH (18:00)
== END 2019-01-05 16:30 | DRG 868 ==
LOC: MW.ED 04:03 → MW.MS 09:12
PROVIDERS: ADMIT Internal Medicine; ATTEND Internal Medicine
DX: A48.3 Toxic shock syndrome (principal); N17.9 Acute kidney failure, unspecified; I10 Essential (primary) hypertension; K21.9 Gastro-esophageal reflux disease without esophagitis; E16.2 Hypoglycemia, unspecified; K75.89 Other specified inflammatory liver diseases; D47.3 Essential (hemorrhagic) thrombocythemia; D64.9 Anemia, unspecified; K29.70 Gastritis, unspecified, without bleeding; T39.1X5A Adverse effect of 4-Aminophenol derivatives, initial encounter; J45.909 Unspecified asthma, uncomplicated; G43.909 Migraine, unspecified, not intractable, without status migrainosus; F17.210 Nicotine dependence, cigarettes, uncomplicated; Z79.899 Other long term (current) drug therapy; Z88.0 Allergy status to penicillin; Z88.1 Allergy status to other antibiotic agents
CPT/HCPCS: 36415; 70450; 70450-26; 71045; 71045-26; 74176; 74176-26; 80053; 80074; 80305-QW; 81001; 81025; 82962; 83605; 83615; 84484; 85025; 85610; 86850; 86900; 86901; 87040; 96360; 96361; 96374; 99285-25; A4217; A9270-GY; C9113; G0480; J0132; J0692; J1644; J2270; J2405; J3370; J3490; J7040; J7042; J7050; J7060

== ENCOUNTER 2019-04-18 12:47 | Emergency (ER) | payer SELFPAY ==
[2019-04-18] MEDS ORDERED: Ondansetron 4 MG/2 ML SDV IVPUSH ONE (13:04)
[2019-04-18] MEDS ORDERED: Sodium Chloride 0.9% 10 ML Syringe FLUSH PRN (13:04)
[2019-04-18] MEDS ORDERED: Sodium Chloride 0.9% 2.5 ML Syringe FLUSH PRN (13:04)
[2019-04-18] MEDS ORDERED: Morphine 4 MG/ML Syringe IVPUSH ONE (13:04)
[2019-04-18] MEDS ORDERED: Sodium Chloride 0.9% 1,000 ML IV ONE (13:04)
--- NOTE | 2019-04-18 13:04 | EDM.PDOC ---
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 Patient has history of abdominal pain and a large gastric ulcer. She states she has had vomiting and RUQ pain x 3 days. She also states she started her period yesterday and is soaking through a large pad and tampon every hour. She states she is lightheaded, denies fevers, chills, diarrhea, chest pain, SOB. Past medical history significant for pancreatitis, hepatitis, biliary colic. Denies past surgical history. Patient has had EGD done for gastric ulcer here and in [place]. She is uncertain if it is cancerous or not. She states she does not have a follow up for this until next December. She also notes she has had heavy menstrual cycles in the past but has not seen freezer machine operator for it. Review of systems: As per history of present illness and below otherwise all systems reviewed and negative. Past medical history: As per history of present illness and as reviewed below otherwise noncontributory. Surgical history: As per history of present illness and as reviewed below otherwise noncontributory. Social history: No reported history of drug or alcohol abuse. Family history: As per history of present illness and as reviewed below otherwise noncontributory. Physical exam: General: Patient sitting comfortably in no acute distress and nontoxic appearing HEENT: Atraumatic, normocephalic, pupils reactive, negative for conjunctival pallor or scleral icterus, mucous membranes moist, throat clear, neck supple, nontender, trachea midline. No meningeal signs. Lungs: Clear to auscultation, breath sounds equal bilaterally, chest nontender. Heart: S1S2, regular, negative for clicks, rubs, or overt murmur. Abdomen: Soft, nondistended, nontender. Negative for masses or hepatosplenomegaly. Negative for costovertebral tenderness. No rigidity, rebound , guarding. Pelvis: Stable nontender. Genitourinary: Deferred. Rectal: Deferred. Extremities: Atraumatic, negative for cords or calf pain. Neurovascular unremarkable. Neuro: Awake, alert, oriented. Cranial nerves II through XII unremarkable. Cerebellum unremarkable. Motor and sensory unremarkable throughout. Exam nonfocal. Notes: Patient has had multiple abdominal CT scans this year. Discussed labs results with patient and need for CT vs abdominal US. Patient states she wants to have the CT scan done. Patient in ED for 4 hours and did not need to change tampon or pad during this time. Diagnostics: CBC, CMP, PT/INR, Abdomen/pelvis CT w/ contrast Therapeutics: 1L NS IV 4mg Morphine IV 1mg Dilaudid IV Prescriptions: Impression: Biliary colic, RUQ pain, cholelithiasis, menstrual bleeding Plan: Avoid fried, fatty foods as instructed and follow up with general surgery Follow up with freezer machine operator regarding heavy menstrual period Return to ED as needed as discussed Definitive disposition and diagnosis as appropriate pending reevaluation and review of above. Right Upper Abdominal Pain Score (Numeric/FACES): 9 - Related Data Allergies Allergy/AdvReac Type Severity Reaction Status Date / Time acetaminophen Allergy Other Verified 04/01/19 14:58 ciprofloxacin [From Cipro] Allergy Nausea and Verified 04/01/19 14:58 Vomiting latex Allergy Other Verified 04/01/19 14:58 NSAIDS (Non-Steroidal Allergy Other Verified 04/01/19 14:58 Anti-Inflamma Penicillins Allergy Anaphylactic Verified 04/01/19 14:58 Shock Home Meds: Home Meds Calcium Carbonate [Calcium] 600 mg PO DAILY 02/12/19 [History] Furosemide [Lasix] 20 mg PO DAILY 02/12/19 [History] Magnesium 250 mg PO DAILY 02/12/19 [History] Ondansetron [Zofran ODT] 4 mg PO Q6H PRN 02/12/19 [History] Pantoprazole [ProTONIX] 40 mg PO DAILY 02/12/19 [History] Potassium Chloride 10 meq PO DAILY 02/12/19 [History] amLODIPine [Norvasc] 10 mg PO DAILY 02/12/19 [History] rOPINIRole [Requip] 2 mg PO BEDTIME 02/12/19 [History] Ondansetron [Zofran ODT] 8 mg PO Q6H #20 tab.dis 02/13/19 [Rx] Morphine [MS Contin] 30 mg PO ASDIRECTED 04/01/19 [History] oxyCODONE 5 mg PO ASDIRECTED 04/01/19 [History] ALPRAZolam [Xanax] 0.25 mg PO QID PRN 04/18/19 [History] Past Medical History - Past Health History Medical/Surgical History: Denies Medical/Surgical History HEENT History: Reports: None Cardiovascular History: Reports: Hypertension Respiratory History: Reports: Asthma Gastrointestinal History: Reports: GERD Genitourinary History: Reports: None MANAGER MANAGING History: Reports: Musculoskeletal History: Reports: None Neurological History: Reports: Concussion, Migraines Other Neuro History: Restless Leg Syndrome Psychiatric History: Reports: None Endocrine/Metabolic History: Reports: None Hematologic History: Reports: None Immunologic History: Reports: None Oncologic (Cancer) History: Reports: None Dermatologic History: Reports: None - Infectious Disease History Infectious Disease History: Reports: None - Past Surgical History Head Surgeries/Procedures: Reports: None HEENT Surgical History: Reports: Oral Surgery Other GI Surgeries/Procedures: EGD Social & Family History - Family History Family Medical History: Noncontributory - Tobacco Use Smoking Status *Q: Current Every Day Smoker Years of Tobacco use: 30 Packs/Tins Daily: 0.5 - Caffeine Use Caffeine Use: Reports: None - Recreational Drug Use Recreational Drug Use: No ED ROS GENERAL - Review of Systems Review Of Systems: ROS reveals no pertinent complaints other than HPI. ED EXAM, GI/ABD - Physical Exam Exam: See Below (see dictation) Course - Vital Signs Last Recorded V/S: Last Vital Signs Temp 99.1 F 04/18/19 12:55 Pulse 90 04/18/19 15:55 Resp 18 04/18/19 15:55 BP 155/68 H 04/18/19 15:55 Pulse Ox 100 04/18/19 15:55 - Orders/Labs/Meds Orders: Active Orders 24 hr Category Date Time Status Sodium Chloride 0.9% [Saline Flush] Med 04/18/19 13:04 Active 10 ml FLUSH ASDIRECTED PRN Sodium Chloride 0.9% [Saline Flush] Med 04/18/19 13:04 Active 2.5 ml FLUSH ASDIRECTED PRN Saline Lock Insert [OM.PC] Stat Oth 04/18/19 13:03 Ordered Medication Orders Sodium Chloride (Saline Flush) 10 ml FLUSH ASDIRECTED PRN PRN Reason: Keep Vein Open Last Admin: 04/18/19 13:56 Dose: 10 ml Sodium Chloride (Saline Flush) 2.5 ml FLUSH ASDIRECTED PRN PRN Reason: Keep Vein Open Last Admin: 04/18/19 13:56 Dose: 2.5 ml Labs: Laboratory Tests 04/18/19 04/18/19 04/18/19 Range/Units 13:30 13:30 13:49 WBC 12.46 H (4.0-11.0) K/uL RBC 3.86 L (4.30-5.90) M/uL Hgb 12.3 (12.0-16.0) g/dL Hct 38.1 (36.0-46.0) % MCV 98.7 H (80.0-98.0) fL MCH 31.9 (27.0-32.0) pg MCHC 32.3 (31.0-37.0) g/dL RDW Std Deviation 51.5 (28.0-62.0) fl RDW Coeff of Don 15 (11.0-15.0) % Plt Count 489 H (150-400) K/uL MPV 8.60 (7.40-12.00) fL Neut % (Auto) 81.3 H (48.0-80.0) % Lymph % (Auto) 13.9 L (16.0-40.0) % [place] % (Auto) 4.5 (0.0-15.0) % Eos % (Auto) 0.1 (0.0-7.0) % Baso % (Auto) 0.2 (0.0-1.5) % Neut # (Auto) 10.1 H (1.4-5.7) K/uL Lymph # (Auto) 1.7 (0.6-2.4) K/uL [place] # (Auto) 0.6 (0.0-0.8) K/uL Eos # (Auto) 0.0 (0.0-0.7) K/uL Baso # (Auto) 0.0 (0.0-0.1) K/uL Nucleated RBC % 0.0 /100WBC Nucleated RBCs # 0 K/uL INR Sodium (136-145) mmol/L Potassium (3.5-5.1) mmol/L Chloride (98-107) mmol/L Carbon Dioxide (21.0-32.0) mmol/L BUN (7.0-18.0) mg/dL Creatinine (0.6-1.0) mg/dL Est Cr Clr Drug Dosing mL/min Estimated GFR (MDRD) ml/min Glucose (74-106) mg/dL Calcium (8.5-10.1) mg/dL Total Bilirubin (0.2-1.0) mg/dL AST (15-37) IU/L ALT (14-63) IU/L Alkaline Phosphatase (46-116) U/L Total Protein (6.4-8.2) g/dL Albumin (3.4-5.0) g/dL Globulin (2.6-4.0) g/dL Albumin/Globulin Ratio (0.9-1.6) Lipase (73-393) U/L Urine Color YELLOW Urine Appearance CLEAR Urine pH 5.5 (5.0-8.0) Ur Specific [place] <= 1.005 (1.001-1.035) Urine Protein NEGATIVE (NEGATIVE) mg/dL Urine Glucose (UA) NEGATIVE (NEGATIVE) mg/dL Urine Ketones NEGATIVE (NEGATIVE) mg/dL Urine Occult Blood LARGE H (NEGATIVE) Urine Nitrite NEGATIVE (NEGATIVE) Urine Bilirubin NEGATIVE (NEGATIVE) Urine Urobilinogen 0.2 (<2.0) EU/dL Ur Leukocyte Esterase NEGATIVE (NEGATIVE) Urine RBC 3-5 (0-2/HPF) Urine WBC 0-2 (0-5/HPF) Ur Epithelial Cells RARE (NONE-FEW) Urine Bacteria NOT SEEN (NEGATIVE) Urine HCG, Qual NEGATIVE (NEGATIVE) 04/18/19 04/18/19 Range/Units 13:49 13:49 WBC (4.0-11.0) K/uL RBC (4.30-5.90) M/uL Hgb (12.0-16.0) g/dL Hct (36.0-46.0) % MCV (80.0-98.0) fL MCH (27.0-32.0) pg MCHC (31.0-37.0) g/dL RDW Std Deviation (28.0-62.0) fl RDW Coeff of Don (11.0-15.0) % Plt Count (150-400) K/uL MPV (7.40-12.00) fL Neut % (Auto) (48.0-80.0) % Lymph % (Auto) (16.0-40.0) % [place] % (Auto) (0.0-15.0) % Eos % (Auto) (0.0-7.0) % Baso % (Auto) (0.0-1.5) % Neut # (Auto) (1.4-5.7) K/uL Lymph # (Auto) (0.6-2.4) K/uL [place] # (Auto) (0.0-0.8) K/uL Eos # (Auto) (0.0-0.7) K/uL Baso # (Auto) (0.0-0.1) K/uL Nucleated RBC % /100WBC Nucleated RBCs # K/uL INR 0.96 Sodium 138 (136-145) mmol/L Potassium 4.4 (3.5-5.1) mmol/L Chloride 99 (98-107) mmol/L Carbon Dioxide 25.7 (21.0-32.0) mmol/L BUN 13 (7.0-18.0) mg/dL Creatinine 1.0 (0.6-1.0) mg/dL Est Cr Clr Drug Dosing 66.51 mL/min Estimated GFR (MDRD) 60.0 ml/min Glucose 130 H (74-106) mg/dL Calcium 9.7 (8.5-10.1) mg/dL Total Bilirubin 0.3 (0.2-1.0) mg/dL AST 14 L (15-37) IU/L ALT 15 (14-63) IU/L Alkaline Phosphatase 119 H (46-116) U/L Total Protein 7.2 (6.4-8.2) g/dL Albumin 4.0 (3.4-5.0) g/dL Globulin 3.2 (2.6-4.0) g/dL Albumin/Globulin Ratio 1.3 (0.9-1.6) Lipase 30 L (73-393) U/L Urine Color Urine Appearance Urine pH (5.0-8.0) Ur Specific [place] (1.001-1.035) Urine Protein (NEGATIVE) mg/dL Urine Glucose (UA) (NEGATIVE) mg/dL Urine Ketones (NEGATIVE) mg/dL Urine Occult Blood (NEGATIVE) Urine Nitrite (NEGATIVE) Urine Bilirubin (NEGATIVE) Urine Urobilinogen (<2.0) EU/dL Ur Leukocyte Esterase (NEGATIVE) Urine RBC (0-2/HPF) Urine WBC (0-5/HPF) Ur Epithelial Cells (NONE-FEW) Urine Bacteria (NEGATIVE) Urine HCG, Qual (NEGATIVE) Meds: Medications Generic Name Dose Route Start Last Admin Trade Name Freq PRN Reason Stop Dose Admin Sodium Chloride 10 ml 04/18/19 13:04 04/18/19 13:56 Saline Flush FLUSH 10 ml ASDIRECTED PRN Administration Keep Vein Open Sodium Chloride 2.5 ml 04/18/19 13:04 04/18/19 13:56 Saline Flush FLUSH 2.5 ml ASDIRECTED PRN Administration Keep Vein Open Discontinued Medications Generic Name Dose Route Start Last Admin Trade Name Herbertq PRN Reason Stop Dose Admin Hydromorphone HCl 1 mg 04/18/19 15:50 04/18/19 15:56 Dilaudid IVPUSH 04/18/19 15:51 1 mg ONETIME ONE Administration Sodium Chloride 1,000 mls @ 999 mls/hr 04/18/19 13:04 04/18/19 13:54 Normal Saline IV 04/18/19 14:04 999 mls/hr STAT ONE Administration Iopamidol 70 ml 04/18/19 15:58 04/18/19 15:58 Isovue Multipack-370 (76%) IVPUSH 04/18/19 15:59 70 ml ONETIME ONE Administration Morphine Sulfate 4 mg 04/18/19 13:04 04/18/19 13:55 Morphine IVPUSH 04/18/19 13:05 4 mg ONETIME ONE Administration Ondansetron HCl 4 mg 04/18/19 13:04 04/18/19 13:55 Zofran IVPUSH 04/18/19 13:05 4 mg ONETIME ONE Administration Departure - Departure Time of Disposition: 17:04 Disposition: Home, Self-Care 01 Condition: Good Clinical Impression: Cholelithiasis, RUQ pain, Heavy menstrual bleeding - Discharge Information Referrals: PCP,Unknown [Primary Care Provider] - Forms: ED Department Discharge Additional Instructions: The following information is given to patients seen in the emergency department who are being discharged to home. This information is to outline your options for follow-up care. We provide all patients seen in our emergency department with a follow-up referral. The need for follow-up, as well as the timing and circumstances, are variable depending upon the specifics of your emergency department visit. If you don't have a primary care physician on staff, we will provide you with a referral. We always advise you to contact your personal physician following an emergency department visit to inform them of the circumstance of the visit and for follow-up with them and/or the need for any referrals to a consulting specialist. The emergency department will also refer you to a specialist when appropriate. This referral assures that you have the opportunity for follow-up care with a specialist. All of these measure are taken in an effort to provide you with optimal care, which includes your follow-up. Under all circumstances we always encourage you to contact your private physician who remains a resource for coordinating your care. When calling for follow-up care, please make the office aware that this follow-up is from your recent emergency room visit. If for any reason you are refused follow-up, please contact the [facility] Emergency Department at and asked to speak to the emergency department charge nurse. [facility] Specialty Care - General Surgery Professional Building [address] [place] [address], [address] [place] [address] [facility] [address] [place] [address] [facility] Primary Care - Women's Health [address] [place] [address] Avoid fried, fatty foods as instructed and follow up with general surgery Follow up with freezer machine operator regarding heavy menstrual period Return to ED as needed as discussed - My Orders Last 24 Hours: My Active Orders 04/18/19 13:03 Saline Lock Insert [OM.PC] Stat 04/18/19 13:04 Sodium Chloride 0.9% [Saline Flush] 10 ml FLUSH ASDIRECTED PRN Sodium Chloride 0.9% [Saline Flush] 2.5 ml FLUSH ASDIRECTED PRN - Assessment/Plan Last 24 Hours: My Active Orders 04/18/19 13:03 Saline Lock Insert [OM.PC] Stat 04/18/19 13:04 Sodium Chloride 0.9% [Saline Flush] 10 ml FLUSH ASDIRECTED PRN Sodium Chloride 0.9% [Saline Flush] 2.5 ml FLUSH ASDIRECTED PRN
[2019-04-18 14:16] LABS: CARBON DIOXIDE,CO2 25.7 mmol/L (21.0-32.0); POTASSIUM,K 4.4 mmol/L (3.5-5.1)
[2019-04-18] MEDS ORDERED: HYDROmorphone 1 MG/ML Syringe IVPUSH ONE (15:50)
[2019-04-18] MEDS ORDERED: Iopamidol 755 MG/ML 500 ML Multipack Bottle IVPUSH ONE (15:58)
--- NOTE | 2019-04-18 16:57 | CT ---
INDICATION: Right upper quadrant pain TECHNIQUE: CT abdomen and pelvis acquired with 70 cc Isovue 370 IV contrast. COMPARISON: April 01, 2019 FINDINGS: Lower chest: Stable elevation of the left hemidiaphragm. Emphysema. Coronary artery calcifications. Liver: Unremarkable. Spleen: Unremarkable. Pancreas: Unremarkable. Gallbladder and bile ducts: Cholelithiasis. Adrenal glands: Unremarkable. Kidneys: Scarring on the right kidney. GI tract: Unremarkable. Appendix is normal. Vascular structures: Unremarkable. Lymph nodes: Unremarkable. Miscellaneous: Unremarkable. No free air or significant free fluid. Pelvic Organs: Right adnexal cystic lesion has decreased in size from 2.7 cm to 0.8 cm. Bones: Unremarkable for age. IMPRESSION: No acute intra-abdominal inflammatory process identified. Cholelithiasis. Emphysema. Coronary artery calcifications. Scarring on the right kidney. Interval decrease in size of right adnexal cyst. Please note that all CT scans at this facility use dose modulation, iterative reconstruction, and/or weight-based dosing when appropriate to reduce radiation dose to as low as reasonably achievable. Dictated by Leigh Lovell MD @ Apr 18 2019 4:50PM Signed by Dr. Leigh Lovell @ Apr 18 2019 4:56PM
== END 2019-04-18 17:15 | disposition home or self-care (01) ==
LOC: MW.ED 12:47
DX: K80.70 Calculus of gallbladder and bile duct without cholecystitis without obstruction (principal); N92.0 Excessive and frequent menstruation with regular cycle; I10 Essential (primary) hypertension; K21.9 Gastro-esophageal reflux disease without esophagitis; F17.210 Nicotine dependence, cigarettes, uncomplicated; Z88.6 Allergy status to analgesic agent; Z88.1 Allergy status to other antibiotic agents; Z88.0 Allergy status to penicillin; Z88.8 Allergy status to other drugs, medicaments and biological substances; Z91.040 Latex allergy status; Z79.899 Other long term (current) drug therapy
CPT/HCPCS: 74177; 80053; 81001; 81025; 83690; 85025; 85610; 96361; 96374; 96375; 99284; J1170; J2270; J2405; J7040; Q9967

== ENCOUNTER 2019-04-29 11:52 | Emergency (ER) | payer SELFPAY ==
[2019-04-29] MEDS ORDERED: Sodium Chloride 0.9% 10 ML Syringe FLUSH PRN (12:11)
[2019-04-29] MEDS ORDERED: Ondansetron 4 MG/2 ML SDV IVPUSH ONE (12:11)
[2019-04-29] MEDS ORDERED: Hyoscyamine 0.125 MG Tab.SL SL ONE (12:11)
[2019-04-29] MEDS ORDERED: Sodium Chloride 0.9% 2.5 ML Syringe FLUSH PRN (12:11)
[2019-04-29 13:25] LABS: CARBON DIOXIDE,CO2 23.2 mmol/L (21.0-32.0); POTASSIUM,K 3.8 mmol/L (3.5-5.1)
--- NOTE | 2019-04-29 13:33 | US ---
Limited abdominal ultrasound: Multiple real-time images of the upper right abdomen were obtained. Comparison: Prior CT abdomen and pelvis exam of 04/18/19. Findings: Common bile duct mildly dilated at 8.6 mm. No shadowing gallstones are seen. Previous CT study showed what appeared to be a small amount of increased density which is most likely due to gravel that has passed in the interim. No gallbladder wall thickening is seen. Liver shows no focal abnormality. Right kidney shows no hydronephrosis or mass. Right kidney has a length of 9.1 cm. Pancreas was not imaged. Impression: 1. Mildly dilated CBD at 8.6 mm. No gallstones or gallbladder wall thickening is seen. MR cholangiogram study could be obtained to further evaluate. 2. No additional abnormality is seen on right upper quadrant abdominal ultrasound. Diagnostic code #3 MTDD
--- NOTE | 2019-04-29 13:47 | EDM.PDOC ---
ED HPI GENERAL MEDICAL PROBLEM - General Chief Complaint: Abdominal Pain Stated Complaint: stomach pain Time Seen by Provider: 04/29/19 11:55 Source of Information: Reports: Patient History Limitations: Reports: No Limitations - History of Present Illness INITIAL COMMENTS - FREE TEXT/NARRATIVE: History of present illness: []Patient has chronic upper quadrant pain and history of gallstones states that she has been having nausea and vomiting he is unable to tolerate any fluids. She denies any fevers, chills or diarrhea. Review of systems: As per history of present illness and below otherwise all systems reviewed and negative. Past medical history: As per history of present illness and as reviewed below otherwise noncontributory. Surgical history: As per history of present illness and as reviewed below otherwise noncontributory. Social history: No reported history of drug or alcohol abuse. Family history: As per history of present illness and as reviewed below otherwise noncontributory. Physical exam: General: Well developed, well nourished in NAD HEENT: Atraumatic, normocephalic, pupils reactive, negative for conjunctival pallor or scleral icterus, mucous membranes moist, throat clear, neck supple, nontender, trachea midline. Lungs: Clear to auscultation, breath sounds equal bilaterally, chest nontender. Heart: S1S2, regular, negative for clicks, rubs, or JVD. Abdomen: NABS, Soft, nondistended, tender right upper quadrant no rebound or guarding. Negative for masses or hepatosplenomegaly. Negative for costovertebral tenderness. Pelvis: Stable nontender. Genitourinary: Deferred. Rectal: Deferred. Extremities: Atraumatic, negative for cords or calf pain. Neurovascular unremarkable. Neuro: Awake, alert, oriented. Cranial nerves II through XII unremarkable. Cerebellum unremarkable. Motor and sensory unremarkable throughout. Exam nonfocal. Skin:warm and dry Diagnostics: CBC, chemistry, lipase, abdominal ultrasound-mildly dilated common bile duct at 8.6, no gallstones or gallbladder wall thickening or signs of cholecystitis Therapeutics: IV hydration, Zofran, Levsin ED Course: Stable Impression: Chronic abdominal pain, nausea vomiting Prescriptions: Levsin, Zofran Plan: Follow-up with primary care. Meds as directed and return if symptoms worsen or change. Definitive disposition and diagnosis as appropriate pending reevaluation and review of above. Right Upper Abdomen Pain Score (Numeric/FACES): 9 - Related Data Allergies Allergy/AdvReac Type Severity Reaction Status Date / Time acetaminophen Allergy Other Verified 04/29/19 12:13 ciprofloxacin [From Cipro] Allergy Nausea and Verified 04/29/19 12:13 Vomiting latex Allergy Other Verified 04/29/19 12:13 NSAIDS (Non-Steroidal Allergy Other Verified 04/29/19 12:13 Anti-Inflamma Penicillins Allergy Anaphylactic Verified 04/29/19 12:13 Shock Home Meds: Home Meds Calcium Carbonate [Calcium] 600 mg PO DAILY 02/12/19 [History] Furosemide [Lasix] 20 mg PO DAILY 02/12/19 [History] Magnesium 250 mg PO DAILY 02/12/19 [History] Ondansetron [Zofran ODT] 4 mg PO Q6H PRN 02/12/19 [History] Pantoprazole [ProTONIX] 40 mg PO DAILY 02/12/19 [History] Potassium Chloride 10 meq PO DAILY 02/12/19 [History] amLODIPine [Norvasc] 10 mg PO DAILY 02/12/19 [History] rOPINIRole [Requip] 2 mg PO BEDTIME 02/12/19 [History] Ondansetron [Zofran ODT] 8 mg PO Q6H #20 tab.dis 02/13/19 [Rx] oxyCODONE 5 mg PO ASDIRECTED 04/01/19 [History] ALPRAZolam [Xanax] 0.25 mg PO QID PRN 04/18/19 [History] HYDROmorphone [Dilaudid] 4 mg PO QID PRN 04/29/19 [History] Hyoscyamine Sulfate [Levsin] 0.125 mg PO TID PRN #20 tablet 04/29/19 [Rx] Ondansetron HCl [Zofran] 4 mg PO Q4HR #12 tablet 04/29/19 [Rx] Past Medical History - Past Health History Medical/Surgical History: Denies Medical/Surgical History HEENT History: Reports: None Cardiovascular History: Reports: Hypertension Respiratory History: Reports: Asthma Gastrointestinal History: Reports: GERD Genitourinary History: Reports: None NON [employer]ICIAN History: Reports: Musculoskeletal History: Reports: None Neurological History: Reports: Concussion, Migraines Other Neuro History: Restless Leg Syndrome Psychiatric History: Reports: None Endocrine/Metabolic History: Reports: None Hematologic History: Reports: None Immunologic History: Reports: None Oncologic (Cancer) History: Reports: None Dermatologic History: Reports: None - Infectious Disease History Infectious Disease History: Reports: Hepatitis C - Past Surgical History Head Surgeries/Procedures: Reports: None HEENT Surgical History: Reports: Oral Surgery Other GI Surgeries/Procedures: EGD Social & Family History - Family History Family Medical History: Noncontributory - Tobacco Use Smoking Status *Q: Current Every Day Smoker Years of Tobacco use: 30 Packs/Tins Daily: 1 - Caffeine Use Caffeine Use: Reports: None - Recreational Drug Use Recreational Drug Use: No ED ROS GENERAL - Review of Systems Review Of Systems: See Below ED EXAM, GI/ABD - Physical Exam Exam: See Below Course - Vital Signs Last Recorded V/S: Last Vital Signs Temp 97.5 F 04/29/19 12:11 Pulse 114 H 04/29/19 12:11 Resp 18 04/29/19 12:11 BP 175/76 H 04/29/19 12:11 Pulse Ox 100 04/29/19 12:11 - Orders/Labs/Meds Orders: Active Orders 24 hr Category Date Time Status Sodium Chloride 0.9% [Saline Flush] Med 04/29/19 12:11 Active 10 ml FLUSH ASDIRECTED PRN Sodium Chloride 0.9% [Saline Flush] Med 04/29/19 12:11 Active 2.5 ml FLUSH ASDIRECTED PRN Saline Lock Insert [OM.PC] Stat Oth 04/29/19 12:11 Ordered Medication Orders Sodium Chloride (Saline Flush) 10 ml FLUSH ASDIRECTED PRN PRN Reason: Keep Vein Open Last Admin: 04/29/19 12:56 Dose: 10 ml Sodium Chloride (Saline Flush) 2.5 ml FLUSH ASDIRECTED PRN PRN Reason: Keep Vein Open Last Admin: 04/29/19 12:56 Dose: 2.5 ml Labs: Laboratory Tests 04/29/19 04/29/19 Range/Units 12:54 12:54 WBC 9.00 (4.0-11.0) K/uL RBC 3.67 L (4.30-5.90) M/uL Hgb 11.4 L (12.0-16.0) g/dL Hct 36.2 (36.0-46.0) % MCV 98.6 H (80.0-98.0) fL MCH 31.1 (27.0-32.0) pg MCHC 31.5 (31.0-37.0) g/dL RDW Std Deviation 52.1 (28.0-62.0) fl RDW Coeff of Don 15 (11.0-15.0) % Plt Count 425 H (150-400) K/uL MPV 8.40 (7.40-12.00) fL Neut % (Auto) 73.7 (48.0-80.0) % Lymph % (Auto) 21.0 (16.0-40.0) % [place] % (Auto) 5.0 (0.0-15.0) % Eos % (Auto) 0.1 (0.0-7.0) % Baso % (Auto) 0.2 (0.0-1.5) % Neut # (Auto) 6.6 H (1.4-5.7) K/uL Lymph # (Auto) 1.9 (0.6-2.4) K/uL [place] # (Auto) 0.5 (0.0-0.8) K/uL Eos # (Auto) 0.0 (0.0-0.7) K/uL Baso # (Auto) 0.0 (0.0-0.1) K/uL Nucleated RBC % 0.0 /100WBC Nucleated RBCs # 0 K/uL Sodium 137 (136-145) mmol/L Potassium 3.8 (3.5-5.1) mmol/L Chloride 102 (98-107) mmol/L Carbon Dioxide 23.2 (21.0-32.0) mmol/L BUN 12 (7.0-18.0) mg/dL Creatinine 1.0 (0.6-1.0) mg/dL Est Cr Clr Drug Dosing 66.13 mL/min Estimated GFR (MDRD) 60.0 ml/min Glucose 100 (74-106) mg/dL Calcium 9.0 (8.5-10.1) mg/dL Total Bilirubin 0.3 (0.2-1.0) mg/dL AST 14 L (15-37) IU/L ALT 11 L (14-63) IU/L Alkaline Phosphatase 113 (46-116) U/L Total Protein 7.1 (6.4-8.2) g/dL Albumin 4.0 (3.4-5.0) g/dL Globulin 3.1 (2.6-4.0) g/dL Albumin/Globulin Ratio 1.3 (0.9-1.6) Lipase 31 L (73-393) U/L Meds: Medications Generic Name Dose Route Start Last Admin Trade Name Freq PRN Reason Stop Dose Admin Sodium Chloride 10 ml 04/29/19 12:11 04/29/19 12:56 Saline Flush FLUSH 10 ml ASDIRECTED PRN Administration Keep Vein Open Sodium Chloride 2.5 ml 04/29/19 12:11 04/29/19 12:56 Saline Flush FLUSH 2.5 ml ASDIRECTED PRN Administration Keep Vein Open Discontinued Medications Generic Name Dose Route Start Last Admin Trade Name Freq PRN Reason Stop Dose Admin Hyoscyamine 0.125 mg 04/29/19 12:11 04/29/19 12:56 Hyomax-Sl SL 04/29/19 12:12 0.125 mg ONETIME ONE Administration Ondansetron HCl 4 mg 04/29/19 12:11 04/29/19 12:56 Zofran IVPUSH 04/29/19 12:12 4 mg ONETIME ONE Administration Departure - Departure Time of Disposition: 13:46 Disposition: Home, Self-Care 01 Condition: Good Clinical Impression: Chronic abdominal pain Nausea & vomiting Qualifiers: Vomiting type: unspecified Vomiting Intractability: non-intractable Qualified Code(s): R11.2 - Nausea with vomiting, unspecified - Discharge Information *PRESCRIPTION DRUG MONITORING PROGRAM REVIEWED*: Not Applicable *COPY OF PRESCRIPTION DRUG MONITORING REPORT IN PATIENT ELIEZER: Not Applicable Prescriptions: Ondansetron HCl [Zofran] 4 mg PO Q4HR #12 tablet Hyoscyamine Sulfate [Levsin] 0.125 mg PO TID PRN #20 tablet PRN Reason: Pain Referrals: PCP,Unknown [Primary Care Provider] - Additional Instructions: The following information is given to patients seen in the emergency department who are being discharged to home. This information is to outline your options for follow-up care. We provide all patients seen in our emergency department with a follow-up referral. The need for follow-up, as well as the timing and circumstances, are variable depending upon the specifics of your emergency department visit. If you don't have a primary care physician on staff, we will provide you with a referral. We always advise you to contact your personal physician following an emergency department visit to inform them of the circumstance of the visit and for follow-up with them and/or the need for any referrals to a consulting specialist. The emergency department will also refer you to a specialist when appropriate. This referral assures that you have the opportunity for follow-up care with a specialist. All of these measure are taken in an effort to provide you with optimal care, which includes your follow-up. Under all circumstances we always encourage you to contact your private physician who remains a resource for coordinating your care. When calling for follow-up care, please make the office aware that this follow-up is from your recent emergency room visit. If for any reason you are refused follow-up, please contact the [facility] Emergency Department at and asked to speak to the emergency department charge nurse. Take meds as directed, follow up with your primary care physician, return to ER if symptoms worsen or change. [facility] [place] [address] - My Orders Last 24 Hours: My Active Orders 04/29/19 12:11 Sodium Chloride 0.9% [Saline Flush] 10 ml FLUSH ASDIRECTED PRN Sodium Chloride 0.9% [Saline Flush] 2.5 ml FLUSH ASDIRECTED PRN Saline Lock Insert [OM.PC] Stat - Assessment/Plan Last 24 Hours: My Active Orders 04/29/19 12:11 Sodium Chloride 0.9% [Saline Flush] 10 ml FLUSH ASDIRECTED PRN Sodium Chloride 0.9% [Saline Flush] 2.5 ml FLUSH ASDIRECTED PRN Saline Lock Insert [OM.PC] Stat
== END 2019-04-29 14:11 | disposition home or self-care (01) ==
LOC: MW.ED 11:52
DX: R10.11 Right upper quadrant pain (principal); G89.29 Other chronic pain; R11.2 Nausea with vomiting, unspecified; I10 Essential (primary) hypertension; J45.909 Unspecified asthma, uncomplicated; K21.9 Gastro-esophageal reflux disease without esophagitis; F17.210 Nicotine dependence, cigarettes, uncomplicated; Z87.19 Personal history of other diseases of the digestive system; Z88.6 Allergy status to analgesic agent; Z88.1 Allergy status to other antibiotic agents; Z91.040 Latex allergy status; Z88.0 Allergy status to penicillin; Z79.899 Other long term (current) drug therapy
CPT/HCPCS: 36415; 76705; 80053; 83690; 85025; 96374; 99284; A9270; J2405; 99283